=== PATIENT | female | born 1955 | race Caucasian/White ===

== ENCOUNTER 2021-05-14 02:58 | Emergency (ER) | payer MEDICARE, OTHER, SELFPAY ==
[2021-05-14 03:07] VITALS: BP 140/70; BP 170/84; PULSE 80; PULSE 83; RESP 20; O2SAT 100; O2SAT 97; BMI 24.3
--- NOTE | 2021-05-14 03:15 | PC.NURSE ---
pt reports eating chili for lunch, sudden onset N/V around 9pm. periumbilical pain described as gnawing
[2021-05-14 03:17] VITALS: BP 176/92; PULSE 84; RESP 18; O2SAT 100
--- NOTE | 2021-05-14 03:20 | ECG_ITS ---
Test Reason : N/V Blood Pressure : / mmHG Vent. Rate : 084 BPM Atrial Rate : 084 BPM P-R Int : 152 ms QRS Dur : 072 ms QT Int : 404 ms P-R-T Axes : 060 055 056 degrees QTc Int : 477 ms Normal sinus rhythm Normal ECG No previous ECGs available Referred By: Ivette Chow Electronically Signed By:Issac Caban
--- NOTE | 2021-05-14 03:21 | ED_ITS ---
HPI - Nausea/Vomiting/Diarrhea General Chief complaint: Nausea/Vomiting/Diarrhea Stated complaint: abd pain n/v, zofran +IV Time Seen by Provider: 05/14/21 03:12 Source: patient Mode of arrival: EMS History of Present Illness HPI Narrative: 66-year-old female with history of depression and GERD presents with onset of nausea and vomiting approximately 21:00, she did not have dinner and denies any prior history of surgeries within the abdomen and denies any obstipation or diarrhea. In addition, she denies any fever, chills, urinary matteo n/burning/frequency. Patient does describe that the pain is back and periumbilical in nature. Related Data Home Medications Medication Instructions Recorded Confirmed bupropion HCl 150 mg 24 hr tablet, 1 tab PO QAM 05/14/21 05/14/21 extended release (Wellbutrin XL) fluoxetine 10 mg capsule 2 cap PO DAILY 05/14/21 05/14/21 fluticasone 250 mcg-salmeterol 50 1 puff INHALATION BID 05/14/21 05/14/21 mcg/dose blistr powdr for inhalation (Advair Diskus) montelukast 10 mg tablet 1 tab PO DAILY 05/14/21 05/14/21 Previous Rx's Medication Instructions Recorded ondansetron 4 mg disintegrating 4 mg PO Q6H PRN #10 tab 05/14/21 tablet Allergies Allergy/AdvReac Type Severity Reaction Status Date / Time Penicillins Allergy Intermediate Angioedema Verified 05/14/21 03:13 Review of Systems Review of Systems: Pertinent positives and negatives as stated in HPI 10 point review of systems is otherwise negative. FOR[facility]LY [facility], [facility] Past Medical History Source: nursing notes reviewed Medical History Asthma GERD (gastroesophageal reflux disease) Hiatal hernia Social History Social History Alcohol intake: current Alcohol intake frequency: a few times a week Use of substances other than those prescribed or required for medical reasons: No Advance Directives: No Advance Directives Information Provided: Yes Physical Exam Vital Signs: Vital Signs: Last Vital Signs Pulse 96 05/14/21 05:09 Resp 15 05/14/21 05:09 BP 174/86 H 05/14/21 05:09 Pulse Ox 98 05/14/21 05:09 BMI result Body Mass Index 24.3 VITAL SIGNS: Reviewed. GENERAL: Well developed, well nourished, in no acute distress. HEAD: Normocephalic/atraumatic EYES: PERRLA, EOMI OROPHARYNX: no oral lesions noted, posterior pharynx clear LUNGS: Normal breath sounds. No adventitious sounds or accessory muscle use. SpO2<100> CARDIOVASCULAR: Regular rate and rhythm without noted murmurs, no JVD or lower extremity edema. ABDOMEN: Soft, mild tenderness to palpation over periumbilical area, non- distended with bowel sounds. MUSCULOSKELETAL: No tenderness, deformities, or effusions noted on gross inspection. EXTREMITIES: No cyanosis, clubbing or edema. SKIN: Inspection of the skin reveals no rashes NEUROLOGIC: Alert and oriented x 4. Strength and sensation to light touch were grossly intact x 4. Course Course Course Narrative: 66-year-old female with history and clinical presentation suggestive of possible gastritis, pancreatitis, cholecystitis and less likely appendicitis or UTI. Review of all investigations negative for acute findings and after patient received GI cocktail, acid reflux medication, she was feeling improved on re- evaluation but states she still felt like her stomach a sensitive. She was informed of all results. She is tolerating oral intake and is otherwise stable for discharge to home. MDM - Nausea/Vomiting/Diarrhea Lab Data Result diagrams: 05/14/21 04:05 05/14/21 04:05 Labs: Lab Results 05/14/21 05/14/21 05/14/21 Range/Units 03:55 04:05 04:05 WBC 9.0 (4.8-10.8) X10*3/uL RBC 4.59 (4.20-5.50) X10*6/uL Hgb 13.8 (12.0-16.0) g/dl Hct 41.6 (37.0-47.0) % MCV 90.6 (80.0-98.0) fL MCH 30.1 (27.0-33.0) pg MCHC 33.2 (31.0-35.0) g/dl RDW 12.6 (11.0-16.0) % Plt Count 278 (160-400) X10*3/uL MPV 9.5 (9.4-12.3) fL Immature Gran % (Auto) 0.4 (0.0-0.4) % Neut % (Auto) 84.0 H (45-73) % Lymph % (Auto) 9.8 L (20-40) % Clark % (Auto) 4.9 (2-11) % Eos % (Auto) 0.3 (0-4) % Baso % (Auto) 0.6 (0-2) % Lymph # (Auto) 0.9 L (1.2-4.9) X10*3/uL Clark # (Auto) 0.4 (0.1-1.2) X10*3/uL Eos # (Auto) 0.0 (0.0-0.4) X10*3/uL Baso # (Auto) 0.1 (0.0-0.2) X10*3/uL Abs Immat Gran (auto) 0.04 H (0.00-0.03) X10*3/uL Absolute Neuts (auto) 7.6 (2.0-8.3) x10*3/uL Absolute Nucleated RBC 0.000 (0.0-0.012) X10*3/uL Nucleated RBC % (auto) 0.0 (0.0-0.2) /100WBC Sodium 141 (135-145) mmol/L Potassium 4.5 (3.3-5.1) mmol/L Chloride 107 (96-108) mmol/L Carbon Dioxide 19 L (22-29) mmol/L Anion Gap 20 (12-20) BUN 12 (9-16) mg/dL Creatinine 0.91 (0.5-1.4) mg/dL Estim Creat Clear Calc 64.3 Estimated GFR > 60 Random Glucose 128 H (60-115) mg/dL Calcium 9.9 (8.4-10.2) mg/dL Total Bilirubin 0.7 (0.0-1.0) mg/dL AST 26 (5-31) U/L ALT 22 (0-31) U/L Alkaline Phosphatase 89 (39-117) U/L Total Protein 6.9 (6.5-8.0) g/dL Albumin 4.3 (3.5-5.0) g/dL Lipase 12 (8-78) U/L Urine Color STRAW Urine Appearance CLEAR Urine pH 8.0 (5.0-8.0) Ur Specific [place] 1.020 (1.005-1.025) Urine Protein NEG (NEG-TRACE) MG/DL Urine Glucose (UA) NEG (NEG) MG/DL Urine Ketones NEG (NEG) MG/DL Urine Blood NEG (NEG) Urine Nitrite NEG (NEG) Ur Leukocyte Esterase NEG (NEG) ECG Data Attestation: I personally reviewed and interpreted this ECG as follows: Prior ECG tracings: not available for review Interpretation: Normal sinus rhythm, HR-84, no STEMI, SC/QRS/QTC are within normal limits. Discharge Plan Discharge Clinical Impression: Gastritis Patient Disposition: Home, Self-Care Instructions: Gastritis (ED), Diet for Stomach Ulcers and Gastritis (ED) Additional Instructions: 1. Recommend that you initiate your 2 week course of acid reflux treatment. 2. Recommend keeping a bland diet to help settle your symptoms. 3. Follow-up with your primary care provider. Return to the ER for worsening symptoms. Prescriptions: New ondansetron 4 mg tablet,disintegrating 4 mg PO Q6H PRN (Reason: nausea and vomiting) Qty: 10 0RF No Action fluticasone propion-salmeterol [Advair Diskus] 250-50 mcg/dose blister with device 1 puff inhalation BID 0RF fluoxetine 10 mg capsule 2 cap PO DAILY 0RF montelukast 10 mg tablet 1 tab PO DAILY 0RF bupropion HCl [Wellbutrin XL] 150 mg tablet extended release 24 hr 1 tab PO QAM 0RF
[2021-05-14] MEDS: Prochlorperazine Edisylate 10 MG/2 ML VIAL IVPUSH (03:26)
[2021-05-14] MEDS: Famotidine/PF 20 MG/2 ML VIAL IVPUSH (03:30)
[2021-05-14 04:09] LABS: MANUAL DIFF FLAG NO
[2021-05-14 04:10] LABS: Appearance Urine CLEAR; Color Urine STRAW; Glucose Urine UA NEG (NEG); Leukocyte Esterase Urine NEG (NEG); Nitrite Urine NEG (NEG); Urine Blood NEG (NEG); Urine Ketones NEG (NEG); Urine Protein NEG (NEG-TRACE)
[2021-05-14 04:10] LABS: Basophils Absolute Auto 0.1 X10*3/uL (0.0-0.2); Basophils Percent Auto 0.6 % (0-2); Eosinophils Percent Auto 0.3 % (0-4); Hematocrit 41.6 % (37.0-47.0); Hemoglobin 13.8 g/dl (12.0-16.0); Imm Gran Abs Auto 0.04 X10*3/uL (0.00-0.03); Imm Gran Pct Auto 0.4 % (0.0-0.4); Lymphocytes Absolute Auto 0.9 X10*3/uL (1.2-4.9); Lymphocytes Percent Auto 9.8 % (20-40); Mean Corpuscular HGB Conc 33.2 g/dl (31.0-35.0); Mean Corpuscular Hemoglobin 30.1 pg (27.0-33.0); Mean Corpuscular Volume 90.6 fL (80.0-98.0); Mean Platelet Volume 9.5 fL (9.4-12.3); Monocytes Absolute Auto 0.4 X10*3/uL (0.1-1.2); Monocytes Percent Auto 4.9 % (2-11); Neutrophils Absolute Auto 7.6 x10*3/uL (2.0-8.3); Platelet Count 278 X10*3/uL (160-400); Red Blood Count 4.59 X10*6/uL (4.20-5.50); Red Cell Distribution Width 12.6 % (11.0-16.0)
[2021-05-14 04:25] LABS: Alanine Aminotransferase 22 U/L (0-31); Albumin Level 4.3 g/dL (3.5-5.0); Alkaline Phosphatase 89 U/L (39-117); Anion Gap 20 (12-20); Aspartate Amino Transferase 26 U/L (5-31); Bilirubin Total 0.7 mg/dL (0.0-1.0); Blood Urea Nitrogen 12 mg/dL (9-16); Calcium 9.9 mg/dL (8.4-10.2); Carbon Dioxide 19 mmol/L (22-29); Chloride 107 mmol/L (96-108); Creatinine Clr Calc Pharmacy 64.3; Estimated Glomerular Filt Rate > 60; Glucose Random 128 mg/dL (60-115); Lipase 12 U/L (8-78); Potassium 4.5 mmol/L (3.3-5.1); Sodium 141 mmol/L (135-145); Total Protein 6.9 g/dL (6.5-8.0)
[2021-05-14] MEDS: Magnesium Hydrox/Alum Hydrox 30 ML ORAL.SUSP PO (05:08)
[2021-05-14] MEDS: Lidocaine HCl Viscous 2 % 15 ML SOLUTION 10 ML MUCOUS MEM (05:08)
[2021-05-14 05:09] VITALS: BP 174/86; PULSE 96; RESP 15; O2SAT 98
[2021-05-14] MEDS: Sucralfate Oral Suspension 1 GM/10 ML ORAL.SUSP PO (05:33)
[2021-05-14 06:00] VITALS: BP 158/91; PULSE 101; RESP 16; TEMP 36.9; O2SAT 99
== END 2021-05-14 06:30 | disposition home or self-care (01) ==
PROVIDERS: Emergency Provider Student in an Organized Health Care Education/Training Program
DX: K29.70 Gastritis, unspecified, without bleeding (principal); K21.9 Gastro-esophageal reflux disease without esophagitis
CPT/HCPCS: 36415; 80053; 81003; 83690; 85025; 93005; 96374; 96375; 99284; 99285

== ENCOUNTER 2021-07-11 13:17 | Outpatient (REF) | payer MEDICARE, OTHER, SELFPAY ==
--- NOTE | ~2021-07-11 | US_ITS ---
EXAMINATION: US ABDOMEN LIMITED CLINICAL INFORMATION: Abnormal LFTs. COMPARISON: None TECHNIQUE: Real-time imaging of the right upper quadrant abdominal viscera. FINDINGS: PANCREAS: The visualized portion of the pancreas head and body are normal, portion of the pancreatic body and tail, not visualized are obscured by bowel gas. LIVER: The liver is normal in size. The liver contour is normal. Increased echogenicity of the liver parenchyma, this can be seen in the setting of hepatic steatosis or liver parenchymal disease. No focal hepatic lesion. There is no intrahepatic biliary duct dilatation seen. GALLBLADDER: Gallbladder is packed with gallstones, mild gallbladder wall thickening measuring up to 3mm. No tenderness. No pericholecystic fluid collection, no other signs to suggest acute cholecystitis... COMMON BILE DUCT: Normal in caliber measuring 0.3 cm in diameter. RIGHT KIDNEY: Normal. No hydronephrosis. No renal calculi or focal parenchymal lesions. The kidney measures 9.7 cm in maximum dimension. FREE FLUID: None. US/US abdomen limited IMPRESSION: Increased echogenicity of the liver parenchyma, this can be seen in the setting of hepatic steatosis or liver parenchymal disease. Gallbladder is packed with gallstones. Mild thickening of gallbladder wall nonspecific 3 mm. No tenderness or other signs to suggest acute cholecystitis.
== END 2021-07-11 13:18 | disposition home or self-care (01) ==
LOC: HO.US 13:17
DX: R94.5 Abnormal results of liver function studies (principal)
CPT/HCPCS: 76705

== ENCOUNTER 2021-07-25 09:26 | Outpatient (REF) | payer OTHER, SELFPAY ==
[2021-07-25 09:38] LABS: MANUAL DIFF FLAG NO
[2021-07-25 10:08] LABS: Basophils Absolute Auto 0.1 X10*3/uL (0.0-0.2); Basophils Percent Auto 1.4 % (0-2); Eosinophils Absolute Auto 0.5 X10*3/uL (0.0-0.4); Eosinophils Percent Auto 8.9 % (0-4); Hematocrit 41.8 % (37.0-47.0); Hemoglobin 13.4 g/dl (12.0-16.0); Imm Gran Abs Auto 0.01 X10*3/uL (0.00-0.03); Imm Gran Pct Auto 0.2 % (0.0-0.4); Lymphocytes Percent Auto 36.1 % (20-40); Mean Corpuscular HGB Conc 32.1 g/dl (31.0-35.0); Mean Corpuscular Hemoglobin 29.4 pg (27.0-33.0); Mean Corpuscular Volume 91.7 fL (80.0-98.0); Mean Platelet Volume 9.6 fL (9.4-12.3); Monocytes Absolute Auto 0.6 X10*3/uL (0.1-1.2); Neutrophils Absolute Auto 2.4 x10*3/uL (2.0-8.3); Neutrophils Percent Auto 43.4 % (45-73); Platelet Count 305 X10*3/uL (160-400); Red Blood Count 4.56 X10*6/uL (4.20-5.50); Red Cell Distribution Width 12.5 % (11.0-16.0); White Blood Count 5.5 X10*3/uL (4.8-10.8)
[2021-07-25 10:09] LABS: Prothrombin Time 11.4 SEC (9.9-13.0)
[2021-07-25 10:25] LABS: Alanine Aminotransferase 26 U/L (0-31); Albumin Level 4.2 g/dL (3.5-5.0); Alkaline Phosphatase 138 U/L (39-117); Aspartate Amino Transferase 24 U/L (5-31); Bilirubin Direct 0.3 mg/dL (0.0-0.5); Bilirubin Total 0.6 mg/dL (0.0-1.0); Total Protein 6.5 g/dL (6.5-8.0)
== END 2021-07-25 09:27 | disposition home or self-care (01) ==
LOC: HO.LAB 09:26
PROVIDERS: PCP Hospitalist; Visit Provider Internal Medicine
DX: R94.5 Abnormal results of liver function studies (principal)
CPT/HCPCS: 36415; 80076; 85025; 85610

== ENCOUNTER 2021-08-19 08:49 | Outpatient (REF) | payer MEDICARE, OTHER, SELFPAY ==
--- NOTE | ~2021-08-19 | MM_ITS ---
EXAMINATION: MM SCREENING DIGITAL BREAST TOMOSYNTHESIS, BILATERAL CLINICAL INFORMATION: Screening. Asymptomatic. Prior [id number] mammography from [place] currently unavailable, office called according to technologist. No known family history breast cancer. The lifetime risk of breast cancer based on the Tyrer-Cuzick Model is 7%. COMPARISON: None. TECHNIQUE: Digital breast tomosynthesis is performed in both the craniocaudal and mediolateral oblique views along with computer-aided detection (CAD). Synthesized 2D images are generated from the tomosynthesis. FINDINGS: There are scattered areas of fibroglandular density (ACR BI-RADS breast composition Category b). There is benign appearing dominant oval nodule posterior central 6:00 left breast, under 1 cm. Right breast has 2 benign-appearing circumscribed nodule 9:00 periareolar position, under 0.5 cm. Chronicity is currently unknown. Radiology department staff is targeted to retrieve prior [id number] mammography to allow for comparison in an addendum report. There is no spiculated mass or suspicious focal asymmetric density. No abnormal calcifications. The axilla and skin contours are unremarkable. MM/MM tomosynthesis screening BI IMPRESSION: Benign-appearing oval nodule posterior central 6:00 left breast and anterior periareolar right breast of uncertain chronicity. Prior outside exam pending for comparison. ASSESSMENT: BI-RADS 0: Incomplete - Prior outside exam pending for comparison RECOMMENDATION: -Radiology department staff will attempt to retrieve outside prior exam(s) to allow for comparison in an addendum report. -If unavailable, patient will be recalled for additional targeted ultrasound bilateral breasts. This patient's information was entered into a reminder system with a target due date for their next mammogram.
== END 2021-08-19 08:50 | disposition home or self-care (01) ==
LOC: HO.MAMMO 08:49
PROVIDERS: PCP Hospitalist; Visit Provider Hospitalist
DX: Z12.31 Encounter for screening mammogram for malignant neoplasm of breast (principal)
CPT/HCPCS: 77063; 77067

== ENCOUNTER 2021-08-22 06:03 | Day surgery (SDC) | payer MEDICARE, OTHER, SELFPAY ==
[2021-08-16 08:58] VITALS: BMI 24.3
--- NOTE | 2021-08-21 10:04 | P.CONAN_ITS ---
Documented by User: Terese Williamson NP 08/21/21 10:06 HPI - Anesthesia Eval Consult details Narrative: 66yo F for Cholecystectomy Laparoscopic, possible cholangiogram,possible open PMFSH Active Problems Active Problems: All Active Problems (Updated 08/16/21 @ 08:52 by Bushra López RN) GERD (gastroesophageal reflux disease) (Acute) Asthma (Acute) Cholelithiasis (Acute) Elevated liver enzymes (Acute) Anxiety with depression (Acute) Past Medical History Medical History Asthma Depression GERD (gastroesophageal reflux disease) Hiatal hernia Skin cancer Surgical History Surgical History History of breast biopsy Hx of colonoscopy Social History Social History Housing: House Are you a primary progressive care unit registered nurse to a significant other at home: No Do you presently have visiting nurse or other home services: No Alcohol intake: current Alcohol intake frequency: a few times a week Patient Tobacco Use Status: Never used Tobacco e-Cigarette/Vaping Use: Never Used Second Hand Smoke Exposure: No Are you DNR?: No Advance Directives: No Advance Directives Information Provided: No Advance Directives on File: No Recently lost weight without trying: No Eating poorly because of decreased appetite: No Nutrition Risks: No Nutritional Risk Patient : No service: No Current occupational status: employed Current occupational exposures/hazards: No Cognitive needs: No Hearing needs: No Vision needs: No Meds Allergies Allergy/AdvReac Type Severity Reaction Status Date / Time Penicillins Allergy Intermediate Angioedema Verified 08/16/21 08:53 codeine AdvReac Nausea, Verified 08/16/21 08:53 Abdominal pain Home Medications Medication Instructions Recorded Confirmed Last Taken Type bupropion HCl 150 mg 24 hr tablet, 1 tab PO QAM 05/14/21 08/16/21 Unknown History extended release (Wellbutrin XL) fluticasone 250 mcg-salmeterol 50 1 puff inhalation BID 05/14/21 08/22/21 08/22/21 05:30 History mcg/dose blistr powdr for inhalation (Advair Diskus) montelukast 10 mg tablet 1 tab PO DAILY 05/14/21 08/16/21 Unknown History clobetasol 0.05 % topical cream g topical BID 07/18/21 08/06/21 Unknown History fluoxetine 20 mg capsule 20 mg PO DAILY 07/18/21 08/16/21 Unknown History Exam Exam Date and Time: August 21, 2021 1004 Height,Weight and Vital Signs: Height 5 ft 8 in Weight 72.575 kg Pertinent Lab Results Pertinent Lab Results: Laboratory Tests 05/14/21 07/25/21 04:05 09:37 WBC 5.5 Hgb 13.4 Hct 41.8 Plt Count 305 Sodium 141 Potassium 4.5 Chloride 107 Carbon Dioxide 19 L BUN 12 Creatinine 0.91 Narrative Narrative: EKG 04/2021 Vent. Rate : 084 BPM ? ? Atrial Rate : 084 BPM ?? P-R Int : 152 ms? QRS Dur : 072 ms ? ? QT Int : 404 ms ? ? ? P-R-T Axes : 060 055 056 degrees ?? QTc Int : 477 ms ? Normal sinus rhythm Normal ECG No previous ECGs available Assessment and Plan Assessment Anesthesia Assessment: Chart Reviewed Documented by User: Brett Graham MD 08/22/21 07:21 [facility] Past Medical History Medical History Asthma Depression GERD (gastroesophageal reflux disease) Hiatal hernia Skin cancer Patient : No Family History Family history of problems with anesthesia: No Surgical History Surgical History History of breast biopsy Hx of colonoscopy History of Problems with Anesthesia: No Social History Social History Housing: House Are you a primary progressive care unit registered nurse to a significant other at home: No Do you presently have visiting nurse or other home services: No Alcohol intake: current Alcohol intake frequency: a few times a week Patient Tobacco Use Status: Never used Tobacco e-Cigarette/Vaping Use: Never Used Second Hand Smoke Exposure: No Are you DNR?: No Advance Directives: No Advance Directives Information Provided: No Advance Directives on File: No Recently lost weight without trying: No Eating poorly because of decreased appetite: No Nutrition Risks: No Nutritional Risk Patient : No service: No Current occupational status: employed Current occupational exposures/hazards: No Cognitive needs: No Hearing needs: No Vision needs: No Meds Allergies Allergy/AdvReac Type Severity Reaction Status Date / Time Penicillins Allergy Intermediate Angioedema Verified 08/16/21 08:53 codeine AdvReac Nausea, Verified 08/16/21 08:53 Abdominal pain Home Medications Medication Instructions Recorded Confirmed Last Taken Type bupropion HCl 150 mg 24 hr tablet, 1 tab PO QAM 05/14/21 08/16/21 Unknown History extended release (Wellbutrin XL) fluticasone 250 mcg-salmeterol 50 1 puff inhalation BID 05/14/21 08/22/21 08/22/21 05:30 History mcg/dose blistr powdr for inhalation (Advair Diskus) montelukast 10 mg tablet 1 tab PO DAILY 05/14/21 08/16/21 Unknown History clobetasol 0.05 % topical cream g topical BID 07/18/21 08/06/21 Unknown History fluoxetine 20 mg capsule 20 mg PO DAILY 07/18/21 08/16/21 Unknown History Exam Airway Mallampati Class: II TM Dist: >3cm Neck ROM: Full Loose/Missing/Broken Teeth: No (Rrr) Lungs: clear Assessment and Plan Final Anesthetic Review Family History of Problems with Anesthesia: No History of Problems with Anesthesia: No ASA Class: II Final Preanesthetic Review: No Changes in Pt Med Stat, Meds/Allgs Chart Reviewed, Consent Obtained/Reviewed and Anes Risks/Benef Reviewed Patient Risk: Low Procedure Risk: Low Anesthetic Plan Anesthetic Plan: GA Disposition: Standard PACU
[2021-08-22] VITALS (14 sets, daily range): BP systolic 141–157; BP diastolic 76–89; PULSE 74–106; RESP 14–20; TEMP 36.2–36.4; O2SAT 94–99
[2021-08-22] MEDS: Lactated Ringers 1,000 ML 100 ML IVCONT (06:34)
[2021-08-22] MEDS: Acetaminophen 325 MG TABLET 650 MG PO (06:46)
[2021-08-22] MEDS: Heparin Sodium,Porcine 5,000 UNIT/ML VIAL 5000 UNIT SUBCUT (06:50)
--- NOTE | 2021-08-22 07:21 | MHC.SHP ---
Pre-Procedural Eval Section A Date of Service: 08/22/21 The patient is an INPATIENT: No The History & Physical has been completed within 30 days and I have reviewed it.: Yes Section B Chief Complaint: gall stones Allergies: Allergies Allergy/AdvReac Type Severity Reaction Status Date / Time Penicillins Allergy Intermediate Angioedema Verified 08/16/21 08:53 codeine AdvReac Nausea, Verified 08/16/21 08:53 Abdominal pain Plan I have reviewed the history and physical and performed a pertinent physical examination on my patient. No changes have occurred unless specified.
--- NOTE | 2021-08-22 09:14 | P.OP_ITS ---
Operative Note Operative Note Date of Service: 08/22/21 Narrative: Preop diagnosis: [biliary colic] Postop diagnosis: [same] Procedure: [Laparoscopic cholecystectomy] Surgeon: Helder Melton MD Assist: [Nataliia Ramirez PA-C] Anesthesia: [GET, local Marcaine, 0.5% W/ EPI] Estimated blood loss: [3cc] Specimen: [Gallbladder with contents] Intraoperative findings: [5-6 mm cystic duct; 3-4 mm cystic artery in usual location. Adhesions from the neck of the gallbladder to the duodenum were noted in carefully lysed at the clear interface towards the gallbladder to protect the serosa of the duodenum] Indications: [The patient is a 66-year-old woman who had text of biliary colic symptoms. Options including continued observation versus 2nd opinion were reviewed. I also reviewed the inherent risks to laparoscopic cholecystectomy which include, but are not limited to: Bleeding, infection, need for conversion to an open procedure, bile leak, retained common duct stones that could require an ERCP, common bile duct injury that could require transfer. Patient seemed understand her options and wanted to proceed. Activity restrictions and dietary recommendations were also reviewed and apparently understood.] Procedure: The patient was identified in preoperative holding and again in the operating room and placed supine on the table. The patient voided bladder complaint evaluation supervisor, sequential compression stockings were in place, subcu heparin had been administered and antibiotics per protocol were given. The patient was induced in general endotracheal anesthesia administered with excellent effect. An appropriate time-out was performed. A footboard was utilized. The patient's abdomen was widely prepped and draped in the usual manner for surgery using chlorhexidine. Preemptive local was used at all trocar insertion sites. Again at the supraumbilical location and after infiltrating local, made a stab incision and placed a Veress needle without difficulty. An appropriate drop test was performed and a pneumoperitoneum of 15 mmHg was obtained using carbon dioxide. Next, the needle was withdrawn and a 5 mm/30 degree laparoscoped over Optiview trocar was used to access the abdomen without incident. Upon examining the abdomen, there was no evidence of injury from the Veress needle or trocar. Next, 5 mm trocars were placed in the epigastric, subcostal and right anterior axillary line just above the line of the umbilicus. Under direct laparoscopic vision, the 5 mm umbilical port was upsized to a 10 mm. The patient was then positioned in reverse Trendelenburg position and banked left. The gallbladder was clearly identified and grasped by its fundus. It was retracted cranially and anteriorly and dissection began in the cystic triangle. The cystic duct was identified at its junction on the gallbladder and dissection began laterally, then circumferentially dissected using the [place] dissector and hook. The cystic artery was then carefully identified and circumferentially dissected. Once dissection of both structures was complete and the critical view of safety demonstrated, the duct and artery were double clipped proximally and once distally and sharply divided. Electrocautery was used to remove the gallbladder from its fossa on the liver. Liver bed was inspected for hemostasis and the clips were noted to be on the respective structures. The gallbladder was placed in an Endo-Catch bag and delivered through the umbilicus under direct laparoscopic vision. The abdomen was again inspected with the laparoscoped and a abdomen deflated to assess for hemostasis. The patient was returned to neutral position, the abdomen deflated and the fascia of the supraumbilical incision closed with interrupted Vicryl sutures. Skin was closed with 4-0 Monocryl subcuticular sutures. Mastisol and Steri-Strips were applied followed by Band-Aids. The patient tolerated the procedure well and was extubated recovered in stable condition. All sponge instrument counts were correct. At the patient's request I called Leonid at [phone] and apprise them of the operation and plan. Their questions seemed to be satisfactorily answered.
[2021-08-22] MEDS: oxyCODONE HCl Immed Release 5 MG TABLET PO (09:31)
[2021-08-22] MEDS: fentaNYL citrate/PF 100 MCG/2 ML VIAL 25 MCG IVPUSH ×4 (09:31→09:46)
[2021-08-22] MEDS: ondansetron HCL 4 MG/2 ML VIAL IVPUSH (10:58)
== END 2021-08-22 12:04 | disposition home or self-care (01) ==
PROVIDERS: PCP Hospitalist; Visit Provider Surgery
PROC: 0FT44ZZ Resection of Gallbladder, Percutaneous Endoscopic Approach (ICD-10-PCS; CPT 47562; principal; 2021-08-22 07:30)
DX: K80.10 Calculus of gallbladder with chronic cholecystitis without obstruction (principal); K82.8 Other specified diseases of gallbladder; K21.9 Gastro-esophageal reflux disease without esophagitis; J45.909 Unspecified asthma, uncomplicated; R74.8 Abnormal levels of other serum enzymes; F41.8 Other specified anxiety disorders; Z79.51 Long term (current) use of inhaled steroids; Z79.899 Other long term (current) drug therapy; Z88.0 Allergy status to penicillin
CPT/HCPCS: 47562; 88304; J0330; J1100; J1956; J2250; J2405; J3010; Q9967

== ENCOUNTER 2021-12-09 12:11 | Outpatient (REF) | payer MEDICARE, OTHER, SELFPAY ==
[2021-12-09 14:50] LABS: Alanine Aminotransferase 20 U/L (0-31); Albumin Level 4.4 g/dL (3.5-5.0); Alkaline Phosphatase 85 U/L (39-117); Aspartate Amino Transferase 20 U/L (5-31); Bilirubin Direct 0.2 mg/dL (0.0-0.5); Bilirubin Total 0.6 mg/dL (0.0-1.0); Total Protein 6.6 g/dL (6.5-8.0)
== END 2021-12-09 12:12 | disposition home or self-care (01) ==
LOC: HO.10HDL 12:11
PROVIDERS: Visit Provider Internal Medicine
DX: R94.5 Abnormal results of liver function studies (principal)
CPT/HCPCS: 36415; 80076

== ENCOUNTER 2022-03-24 12:14 | Emergency (ER) | payer MEDICARE, OTHER, SELFPAY ==
--- NOTE | ~2022-03-24 | XR_ITS ---
EXAMINATION: XR FOOT, LEFT CLINICAL INFORMATION: Left foot pain status post fall. COMPARISON: None TECHNIQUE: AP, lateral, and oblique views of the left foot. An indicator arrow points to the fifth metatarsal. FINDINGS: The bones and soft tissues are normal. No fracture. Alignment is anatomic. Joint spaces are maintained. XR/XR foot LT 2V IMPRESSION: Unremarkable left foot.
[2022-03-24 12:38] VITALS: BP 140/74; PULSE 100; RESP 20; TEMP 36.8; O2SAT 98; BMI 23.6
--- NOTE | 2022-03-24 12:47 | ED.LOWEXIN ---
HPI - Extremity Injury (Lower) General Chief Complaint: Extremity Injury, Lower <Clau Miller NP - Last Filed: 03/24/22 12:48> Stated Complaint: fall l foot inj <Clau Miller NP - Last Filed: 03/24/22 12:48> Time Seen by Provider: 03/24/22 14:53 <Clau Miller NP - Last Filed: 03/24/22 12:48> Source: patient <ELÍAS Gray - Last Filed: 03/24/22 17:38> Mode of arrival: ambulatory <ELÍAS Gray Last Filed: 03/24/22 17:38> Limitations: no limitations <ELÍAS Gray Last Filed: 03/24/22 17:38> History of Present Illness HPI Narrative: 67 yold female presents to the ED for evaluation of left foot pain after falling down stairs and hurtning left foot. Patient denies hitting head or loss of consciousness. Patient states she has lower left leg bruising but has no pain in that area. Patient only pain is in left foot. Patient also states right forearm bruise were negative for any tenderness or pain. Patient states having these bruise after fall. patient states normal gait and denies troube walking except foot pain. Patient denies hitting head or loss of consciousness. She denies being on any blood thinners <ELÍAS Gray - Last Filed: 03/24/22 17:38> Related Data Home Medications: Home Medications Medication Instructions Recorded Confirmed fluticasone 250 mcg-salmeterol 50 1 puff inhalation BID 05/14/21 08/30/21 mcg/dose blistr powdr for inhalation (Advair Diskus) montelukast 10 mg tablet 1 tab PO DAILY 05/14/21 08/30/21 clobetasol 0.05 % topical cream g topical BID 07/18/21 08/30/21 Previous Rx's Medication Instructions Recorded albuterol sulfate 90 mcg/actuation 2 puff inhalation Q4-6H PRN 07/18/21 aerosol inhaler (ProAir HFA) shortness of breath or wheezing #8.5 grams bupropion HCl 150 mg 24 hr tablet, 150 mg PO QAM #90 tabs 11/05/21 extended release (Wellbutrin XL) fluoxetine 20 mg capsule 20 mg PO DAILY #90 caps 11/05/21 naproxen 500 mg tablet 500 mg PO BID PRN pain 7 days #14 03/24/22 tabs <Clau Miller NP - Last Filed: 03/24/22 12:48> Allergies/Adverse Reactions: Allergies Allergy/AdvReac Type Severity Reaction Status Date / Time Penicillins Allergy Intermediate Angioedema Verified 09/16/21 11:36 codeine AdvReac Nausea, Verified 09/16/21 11:36 Abdominal pain <Clau Miller NP - Last Filed: 03/24/22 12:48> Review of Systems Review of Systems: left foot pain <ELÍAS Gray - Last Filed: 03/24/22 17:38> Yes all other systems are reviewed and are negative <ELÍAS Gray - Last Filed: 03/24/22 17:38> PMFSH Past Medical History Medical History: Medical History Asthma Depression GERD (gastroesophageal reflux disease) Hiatal hernia Skin cancer <Clau Miller NP - Last Filed: 03/24/22 12:48> Surgical History: Surgical History History of breast biopsy Hx of colonoscopy <Clau Miller NP - Last Filed: 03/24/22 12:48> Social History Social History: Social History Housing: House Are you a primary healthcare representative to a significant other at home: No Do you presently have visiting nurse or other home services: No Alcohol intake: current Alcohol intake frequency: a few times a week Patient Tobacco Use Status: Never used Tobacco e-Cigarette/Vaping Use: Never Used Second Hand Smoke Exposure: No Advance Directives: No Advance Directives Information Provided: Yes service: No Current occupational status: employed Current occupational exposures/hazards: No Cognitive needs: No Hearing needs: No Vision needs: No <Clau Miller NP - Last Filed: 03/24/22 12:48> Physical Exam Vital Signs: Vital Signs: Last Vital Signs Temp 98.3 F 03/24/22 12:38 Pulse 100 03/24/22 12:38 Resp 20 03/24/22 12:38 BP 140/74 H 03/24/22 12:38 Pulse Ox 98 03/24/22 12:38 O2 Del Method 03/24/22 12:38 BMI result Body Mass Index 23.6 <Clau Miller NP - Last Filed: 03/24/22 12:48> Vital Signs: Last Vital Signs Temp 98.3 F 03/24/22 12:38 Pulse 100 03/24/22 12:38 Resp 20 03/24/22 12:38 BP 140/74 H 03/24/22 12:38 Pulse Ox 98 03/24/22 12:38 O2 Del Method 03/24/22 12:38 BMI result Body Mass Index 23.6 <Ej Villafuerte MD - Last Filed: 03/24/22 18:38> Vital Signs: Last Vital Signs Temp 98.3 F 03/24/22 12:38 Pulse 100 03/24/22 12:38 Resp 20 03/24/22 12:38 BP 140/74 H 03/24/22 12:38 Pulse Ox 98 03/24/22 12:38 O2 Del Method 03/24/22 12:38 BMI result Body Mass Index 23.6 <ELÍAS Gray - Last Filed: 03/24/22 17:38> Const: General: cooperative, healthy appearing, comfortable, no acute distress, well developed, alert, awake and Physically active <ELÍAS Gray - Last Filed: 03/24/22 17:38> Orientation/consciousness: oriented to person, oriented to place, oriented to time and patient oriented x3 <ELÍAS Gray - Last Filed: 03/24/22 17:38> HEENT: Head: Yes normal to inspection, Yes No palpable skull fracture present, Yes normocephalic and Yes atraumatic <ELÍAS Gray - Last Filed: 03/24/22 17:38> Ears: hearing grossly normal bilaterally, external ears normal, TM's normal bilaterally, EAC's normal, mastoids normal and no periauricular adenopathy <ELÍAS Gray Last Filed: 03/24/22 17:38> General nose exam: Normal external nose present and Normal nares present <Fly Tam, PA Mirna Last Filed: 03/24/22 17:38> Eyes: General: appearance normal, both eyes and all related structures <Fly Tam, PA Last Filed: 03/24/22 17:38> Neck: Neck: Yes normal visual inspection, Yes full ROM, Yes no lymphadenopathy, Yes no meningeal signs, Yes trachea midline, Yes supple, No anterior neck swelling and No tender <Fly Tam, PA Last Filed: 03/24/22 17:38> Chest: Chest palpation & inspection: normal inspection of the chest and normal palpation of entire chest wall <Fly Tam, PA Last Filed: 03/24/22 17:38> Resp: Effort & Inspection: normal respiratory effort and able to speak in complete sentences <Fly Tam, PA Last Filed: 03/24/22 17:38> Auscultation: clear to auscultation bilaterally <Fly Tam, PA Last Filed: 03/24/22 17:38> Cardio: Jugular venous distension: no JVD <Fly Tam, PA Last Filed: 03/24/22 17:38> Heart sounds: S1 normal heart sound present and S2 normal heart sound present <Fly Tam, PA Last Filed: 03/24/22 17:38> GI: Inspection: Yes normal to inspection and No abdominal wall ecchymosis <Fly Tam, PA Last Filed: 03/24/22 17:38> Palpation (GI): Soft to palpation, not firm, nontender, no guarding and not rigid <Fly Tam, PA Last Filed: 03/24/22 17:38> : General: No CVA tenderness and Yes no CVA tenderness <Fly Tma, PA Last Filed: 03/24/22 17:38> Back/Spine/Pelvis: Back: no CVA tenderness, No CVA tenderness and No back tenderness <Fly Tam, PA Mirna Last Filed: 03/24/22 17:38> Skin: General skin exam: no rashes or lesions noted, elasticity normal and turgor normal <ELÍAS Gray Last Filed: 03/24/22 17:38> Neuro: General: oriented to person, oriented to place, oriented to time, patient oriented x3, gait normal, tone normal, moves all extremities, Normal light touch and pain sensation, no meningeal signs, no focal motor deficits and CN's II-XI intact bilaterally <ELÍAS Gray - Last Filed: 03/24/22 17:38> Extrem: General: Yes normal to inspection and Yes full ROM <ELÍAS Gray - Last Filed: 03/24/22 17:38> Elbow/forearm/wrist images: 1. Small area of ecchymosis. Negative for any tenderness, swelling crepitus, or deformity. Motor/Neuro/vascular similar extremity intact <Clau Miller NP - Last Filed: 03/24/22 12:48> Elbow/forearm/wrist images: 1. Small area of ecchymosis. Negative for any tenderness, swelling crepitus, or deformity. Motor/Neuro/vascular similar extremity intact <ELÍAS Gray - Last Filed: 03/24/22 17:38> Upper/lower leg/hip images: 1. Small area of ecchymosis. Negative for tenderness, swelling crepitus, or deformity. Motor/neuro/vascular exam intact. <Clau Miller NP - Last Filed: 03/24/22 12:48> Upper/lower leg/hip images: 1. Small area of ecchymosis. Negative for tenderness, swelling crepitus, or deformity. Motor/neuro/vascular exam intact. <ELÍAS Gray - Last Filed: 03/24/22 17:38> Ankle/foot/toe images: 1. Positive for tenderness on palpation. Negative for crepitus, ecchymosis, deformity, redness. Motor/neuro/vascular exam intact <Clau Miller NP - Last Filed: 03/24/22 12:48> Ankle/foot/toe images: 1. Positive for tenderness on palpation. Negative for crepitus, ecchymosis, deformity, redness. Motor/neuro/vascular exam intact <ELÍAS Gray - Last Filed: 03/24/22 17:38> Psych: Appearance: grossly normal, well kempt and not disheveled <ELÍAS Gray Last Filed: 03/24/22 17:38> Course Course Course Narrative: This is rapid medical exam. Deferred additional HPI, ROS, PE to primary provider. 67 yo female here with left foot pain after a fall yesterday. Will check x-ray. VSS <Clau Miller NP - Last Filed: 03/24/22 12:48> Reevaluation(s) Reevaluation #1: X-ray negative. No further imaging needed. Whole-body exam and negative for signs of concerning life-threatening traumatic injury. Patient did not have any tenderness on palpation of right forearm and left leg similar x-rays were needed. Patient left before receiving discharge papers P <ELÍAS Gray - Last Filed: 03/24/22 17:38> Time: 16:02 <ELÍAS Gray - Last Filed: 03/24/22 17:38> Medical Decision Making Medical Decision Making MDM Narrative: [age] year female presents to ED for left foot pain after falling. Patient well-appearing. Vital signs stable <ELÍAS Gray - Last Filed: 03/24/22 17:38> Differential Diagnosis Differential Diagnoses: The differential diagnosis associated with the presentation includes (Fractures.) <ELÍAS Gray - Last Filed: 03/24/22 17:38> Radiology Impression Discussion of test interpretation with radiology: I have reviewed the radiologist's reading. <ELÍAS Gray - Last Filed: 03/24/22 17:38> Prescription Management I considered prescription management with: Pain Medication <ELÍAS Gray - Last Filed: 03/24/22 17:38> Attestation Attending Attestation: I personally reviewed the chart documentation. I agree with the assessment and plan as set forth by the ELÍAS / SELINA. <Ej Villafuerte MD - Last Filed: 03/24/22 18:38> Discharge Plan Discharge Clinical Impression: Contusion, Foot pain <Clau Miller NP - Last Filed: 03/24/22 12:48> Patient Disposition: Home, Self-Care <Clau Miller NP - Last Filed: 03/24/22 12:48> Instructions: Contusion in Adults (ED), Foot Contusion (ED) <Clau Miller NP - Last Filed: 03/24/22 12:48> Additional Instructions: Recommend Ice first 48 hours and than warm compress on areas of bruising. Recommend elevation of lower extremity. Recommend rest of extremity. Return to the ED immediately for any headache, dizziness, nausea, vomiting, rectal bleeding, bloody urine, chest pain, shortness of breath, worsening bruising of extremities, worsening pain, coughiing up blood or any other concerning symptoms. Please follow-up with primary care provider <Clau Miller NP - Last Filed: 03/24/22 12:48> Prescriptions: New naproxen 500 mg tablet 500 mg PO BID PRN (Reason: pain) 7 Days Qty: 14 0RF No Action bupropion HCl [Wellbutrin XL] 150 mg tablet extended release 24 hr 150 mg PO QAM Qty: 90 1RF fluoxetine 20 mg capsule 20 mg PO DAILY Qty: 90 1RF fluticasone propion-salmeterol [Advair Diskus] 250-50 mcg/dose blister with device 1 puff inhalation BID montelukast 10 mg tablet 1 tab PO DAILY clobetasol 0.05 % cream topical BID albuterol sulfate [ProAir HFA] 90 mcg/actuation HFA aerosol inhaler 2 puff inhalation Q4-6H PRN (Reason: shortness of breath or wheezing) Qty: 8.5 3RF <Clau Miller NP - Last Filed: 03/24/22 12:48> Stand Alone Forms: Work/School Release <Clau Miller NP - Last Filed: 03/24/22 12:48> Interventions: ED Discharge Assessment Last Done: 03/24/22 16:13 <Clau Miller NP - Last Filed: 03/24/22 12:48> Discharge Date/Time: 03/24/22 16:14 <Clau Miller NP - Last Filed: 03/24/22 12:48> Print Language: Citizen Of [place] <Clau Miller NP - Last Filed: 03/24/22 12:48>
== END 2022-03-24 16:14 | disposition home or self-care (01) ==
PROVIDERS: Emergency Provider Student in an Organized Health Care Education/Training Program; PCP Hospitalist
DX: S90.32XA Contusion of left foot, initial encounter (principal); W10.9XXA Fall (on) (from) unspecified stairs and steps, initial encounter; Y93.9 Activity, unspecified; Y92.9 Unspecified place or not applicable; Y99.9 Unspecified external cause status; Z79.899 Other long term (current) drug therapy
CPT/HCPCS: 73620; 99282; 99283

== ENCOUNTER 2022-09-01 15:07 | Outpatient (AMB) | payer MEDICARE, OTHER, SELFPAY ==
--- NOTE | 2022-09-01 15:28 | MHC.PC.OV ---
Vital Signs 09/01/22 15:32 Height 5 ft 8 in Weight 156 lb 8 oz BMI 23.8 BP 134/80 Blood Pressure Location Lt brachial Position Sitting Respiration 12 Pulse 102 H Pulse Source Pulse Oximeter Pulse Oximetry (%) 99 Oxygen Delivery Method Room Air Intake Visit Reasons: Annual physical / pre-op Intake Note: Patient is here for physical and preop for retina surgery in right eye. Allergies Penicillins Allergy (Intermediate, Verified 09/01/22 16:02) Angioedema codeine Adverse Reaction (Verified 09/01/22 16:02) Nausea, Abdominal pain Medication List - Last Reconciled 09/01/22 by Reji Ken CNP albuterol sulfate 90 mcg/actuation (ProAir HFA) 2 puffs inhalation Q4-6H PRN bupropion HCl (Wellbutrin XL) 150 mg PO QAM clobetasol 0.05% 1 appl topical BID PRN fluoxetine 20 mg PO DAILY fluticasone propion-salmeterol 250-50 mcg/dose (Advair Diskus) 1 ea inhalation BID montelukast 10 mg PO DAILY Tobacco use date assessed: 09/16/21 Fall risk assessment: 1 Fall in past year Last assessed Fall Risk: 09/01/22 Dental Screening Did you have a dental visit in the last 12 months?: Yes Did you have a dental problem in the last 6 months where you did not have access to dental care?: No Was dental information given to patient?: No HPI HPI Comments History of Present Illness Details 67-year-old female presents for a complete physical exam She notes she has retina surgery of the right eye scheduled on 09/16/2022 She has not had blood work done in several months No acute symptoms today PFSH Medical History Asthma Depression GERD (gastroesophageal reflux disease) Hiatal hernia Skin cancer Surgical History History of breast biopsy Hx of colonoscopy Social History Housing: House Are you a primary critical care unit nurse to a significant other at home: No Do you presently have visiting nurse or other home services: No Alcohol intake: current Alcohol intake frequency: a few times a week Patient Tobacco Use Status: Never used Tobacco e-Cigarette/Vaping Use: Never Used Second Hand Smoke Exposure: No service: No Current occupational status: employed Current occupational exposures/hazards: No Cognitive needs: No Hearing needs: No Vision needs: No Questionnaire JESSICA-7 AMB Questionnaire JESSICA-7 Date JESSICA - 7 assessed: 07/18/21 Source: Developed by Drs. Gaurav Trevino, Agueda Neri, Crow Bowling and colleagues, with an educational soila from [employer]. Review of Systems Const Details: Denies chills, Denies fatigue, Denies fever(s), Denies headache(s) and Denies weakness HEENT Denies change in vision, Denies dizziness, Denies headache(s), Denies hearing loss, Denies nasal congestion, Denies sinus pain, Denies sinus pressure and Denies sore throat Card Denies chest pain, Denies lightheadedness, Denies dyspnea and Denies other (palpitations) Resp Denies cough, Denies dyspnea and Denies wheezing GI Denies abdominal pain, Denies melena, Denies hematochezia, Denies change in bowel habits, Denies dyspepsia and Denies nausea Denies hematuria and Denies dysuria Musc Denies abnormal gait, Denies myalgias, Denies arthralgias, Denies numbness and Denies tingling Skin/Breast Denies rash, Denies unusual bruising and Denies wounds Neuro Denies abnormal gait, Denies dizziness, Denies headache(s), Denies memory loss, Denies numbness, Denies Sensory deficit (Neuro), Denies tingling and Denies weakness Psych Denies anxiety, Denies depression and Denies memory loss Endo Denies cold intolerance, Denies fatigue, Denies heat intolerance, Denies polydipsia and Denies polyuria Ang/Lymph Denies easy bleeding and Denies easy bruising Aller/Immun Denies wheezing Physical exam (Primary Care) Vital Signs: Last Vital Signs Pulse 102 H 09/01/22 15:32 Resp 12 09/01/22 15:32 BP 134/80 09/01/22 15:32 Pulse Ox 99 09/01/22 15:32 Oxygen Delivery Method Room Air 09/01/22 15:32 BMI result Body Mass Index 23.8 Tobacco/Smoking Status: Tobacco use Status Tobacco use date assessed 09/16/21 09/01/22 15:29 Patient Tobacco Use Status Never used Tobacco 09/01/22 15:29 e-Cigarette/Vaping Use Never Used 09/01/22 15:29 Const Other: General: no acute distress, well developed, alert and awake Nutritional Appearance: well nourished Orientation/consciousness: patient oriented x3 [facility] Head: Yes normocephalic and Yes atraumatic Ears: hearing grossly normal bilaterally and TM's normal bilaterally General nose exam: Normal external nose present and Normal nares present Mouth: Normal oral and palatal mucosa present and moist mucous membranes Teeth and gingiva: dentition normal Throat: Yes oropharynx normal Eyes Pupils: Equal, round and reactive pupils present and Pupil accommodation reflex normal EOM: EOMs intact bilaterally Neck Neck: Yes normal visual inspection, Yes no lymphadenopathy and Yes trachea midline Thyroid: Thyroid normal Carotids: no bruits Lymphatic: no lymphadenopathy noted Chest Chest palpation & inspection: normal inspection of the chest Resp Effort & Inspection: normal respiratory effort Auscultation: clear to auscultation bilaterally Cardio Rate: regular rate Rhythm: regular rhythm Heart sounds: S1 normal heart sound present, S2 normal heart sound present, no gallops, no murmurs and no rubs Bruits: no abdominal aortic bruits and no carotid bruits GI Palpation (GI): No Abdominal aortic bruit present, Soft to palpation, nontender, No hepatosplenomegaly present and No Rebound tenderness present Auscultation: normal bowel sounds General: Yes no CVA tenderness Back/Spine/Pelvis Back: no CVA tenderness Cervical Spine: cervical ROM normal and No Cervical spine tenderness Thoracic/Lumbar Spine: thoraco-lumbar ROM normal, No pain with thoraco-lumbar ROM, No thoracic spinal tenderness and No lumbar spinal tenderness Skin General: warm and dry. Normal skin color. Normal skin turgor Lesions: no lesions Rashes: no rashes Trauma: no lacerations or abrasions Wounds: no wounds Nails: normal Neuro General: patient oriented x3, gait normal and CN's II-XI intact bilaterally Cranial nerves: Yes Equal, round and reactive pupils present Cognition (Neuro): normal cognition Gait exam (Neuro): Normal gait present Motor exam (neuro): 5/5 motor strength present throughout Sensory Exam: No Sensory deficit (Neuro) Deep tendon reflexes (DTR's): Right patellar reflex intensity grade: 2+ and Left patellar reflex intensity grade: 2+ Extrem General: Yes normal to inspection, No edema and No calf tenderness Psych Appearance: grossly normal Affect: normal affect Attitude: cooperative Thought process: Normal thought process present Assessment and Plan Assessment & Plan (1) Normal physical examination, routine: Code(s): Z00.00 - Encounter for general adult medical examination without abnormal findings Plan: No significant physical restrictions or limitations noted Advised to schedule a follow-up with PCP in 2 months for health maintenance (2) Laboratory tests ordered as part of a complete physical exam (CPE): Code(s): Z00.00 - Encounter for general adult medical examination without abnormal findings Plan: Fasting labs ordered as part of a complete physical exam. Advised to fast for at least 10 hours before getting labs drawn. May drink water Verbalized understanding and agreed with treatment plan. Orders: Orders Comprehensive [place]. Panel Fast Today Z00.00 - Encounter for general adult medical examination without abnormal findings Complete Blood Count no Diff Today Z00.00 - Encounter for general adult medical examination without abnormal findings Lipid Panel Today Z00.00 - Encounter for general adult medical examination without abnormal findings TSH reflex Free T4 Today Z00.00 - Encounter for general adult medical examination without abnormal findings UA CC w/rflx Micro + Cult Today Z00.00 - Encounter for general adult medical examination without abnormal findings Coding Level of Care Code Est Pt Prev Care >65y(26782) Diagnoses Normal physical examination, routine Z00.00 Laboratory tests ordered as part of a complete physical exam (CPE) Z00.00
[2022-09-01 15:32] VITALS: BP 134/80; PULSE 102; RESP 12; O2SAT 99; BMI 23.8
== END 2022-09-01 16:18 | disposition home or self-care (01) ==
PROVIDERS: Visit Provider Nurse Practitioner Family
DX: Z00.00 Encounter for general adult medical examination without abnormal findings (principal)
CPT/HCPCS: 99397

== ENCOUNTER 2022-09-18 12:07 | Outpatient (REF) | payer MEDICARE, OTHER, SELFPAY | END 2022-09-18 12:08 | disposition home or self-care (01) | LOC: HO.LAB 12:07 | PROVIDERS: PCP Hospitalist; Visit Provider Nurse Practitioner Family | DX: Z13.89 Encounter for screening for other disorder (principal) ==

== ENCOUNTER 2022-10-03 08:07 | Outpatient (REF) | payer MEDICARE, OTHER, SELFPAY ==
[2022-10-03 08:44] LABS: Hematocrit 41.3 % (37.0-47.0); Hemoglobin 13.9 g/dl (12.0-16.0); Mean Corpuscular HGB Conc 33.7 g/dl (31.0-35.0); Mean Corpuscular Hemoglobin 30.5 pg (27.0-33.0); Mean Corpuscular Volume 90.6 fL (80.0-98.0); Platelet Count 287 X10*3/uL (160-400); Red Blood Count 4.56 X10*6/uL (4.20-5.50); Red Cell Distribution Width 12.5 % (11.0-16.0); White Blood Count 5.5 X10*3/uL (4.8-10.8)
[2022-10-03 09:39] LABS: Alanine Aminotransferase 19 U/L (0-31); Albumin Level 4.3 g/dL (3.5-5.0); Alkaline Phosphatase 70 U/L (39-117); Anion Gap 14 (12-20); Aspartate Amino Transferase 18 U/L (5-31); Bilirubin Total 0.6 mg/dL (0.0-1.0); Blood Urea Nitrogen 12 mg/dL (9-16); Calcium 10.1 mg/dL (8.4-10.2); Carbon Dioxide 22 mmol/L (22-29); Chloride 109 mmol/L (96-108); Cholesterol 305 mg/dL; Estimated Glomerular Filt Rate 52; Glucose Fasting 94 mg/dL (60-99); HDL Cholesterol 70 mg/dL; LDL Cholesterol Calculated 212 mg/dl; Potassium 4.2 mmol/L (3.3-5.1); Sodium 141 mmol/L (135-145); Triglycerides 117 mg/dL
[2022-10-03 09:44] LABS: TSH reflex Free T4 1.44 uIU/mL (0.32-4.0)
[2022-10-03 12:01] LABS: Appearance Urine Clear; Color Urine Yellow; Glucose Urine UA Negative (Negative); Leukocyte Esterase Urine Negative (Negative); Nitrite Urine Negative (Negative); PH 5.5 (5.0-9.0); Specific Gravity - Urine 1.015 (1.005-1.025); Urine Blood Negative (Negative); Urine Ketones Negative (Negative); Urine Protein Negative (Neg-Trace)
== END 2022-10-03 08:08 | disposition home or self-care (01) ==
LOC: HO.LAB 08:07
PROVIDERS: PCP Hospitalist; Visit Provider Nurse Practitioner Family
DX: Z00.00 Encounter for general adult medical examination without abnormal findings (principal)
CPT/HCPCS: 36415; 80053; 80061; 81003; 84443; 85027

== ENCOUNTER 2022-10-17 10:15 | Outpatient (REF) | payer MEDICARE, OTHER, SELFPAY | END 2022-10-17 10:16 | disposition home or self-care (01) | LOC: HO.MAMMO 10:15 | PROVIDERS: PCP Hospitalist; Visit Provider Hospitalist | DX: Z12.31 Encounter for screening mammogram for malignant neoplasm of breast (principal) | CPT/HCPCS: 77063; 77067 ==

== ENCOUNTER → 2022-10-17 10:30 | Outpatient (BNV) | payer MEDICARE, OTHER, SELFPAY | PROVIDERS: PCP Hospitalist; Visit Provider Radiology Diagnostic Radiology | DX: Z12.31 Encounter for screening mammogram for malignant neoplasm of breast (principal) | CPT/HCPCS: 77063; 77067 ==

== ENCOUNTER 2022-11-27 13:13 | Outpatient (AMB) | payer MEDICARE, OTHER, SELFPAY ==
[2022-11-27 13:16] VITALS: BP 126/74; PULSE 88; RESP 12; TEMP 36.6; O2SAT 99; BMI 24.3
--- NOTE | 2022-11-27 13:16 | MHC.PC.OV ---
Vital Signs 11/27/22 13:16 Height 5 ft 8 in Weight 160 lb BMI 24.3 BP 126/74 Blood Pressure Location Lt brachial Position Sitting Respiration 12 Pulse 88 Pulse Source Pulse Oximeter Temp 97.8 F Temp Source Temporal Artery Scan Pulse Oximetry (%) 99 Oxygen Delivery Method Room Air Intake Visit Reasons: high cholesterol, asthma Intake Note: Patient states that she keeps getting message from pharmacy stating that her Advair Diskus is being refused and patient states that she has to jump through hoops just to get the medication refilled. Patient also states that she got her labs and knows that her cholesterol is high and believes she will have to be put back on a statin. Policy Analyst Required: No Accompanied by: Self / Same As Patient Allergies Penicillins Allergy (Intermediate, Verified 11/27/22 13:39) Angioedema codeine Adverse Reaction (Verified 11/27/22 13:39) Nausea, Abdominal pain Medication List - Last Reconciled 11/27/22 by Reji Ken CNP albuterol sulfate 90 mcg/actuation (ProAir HFA) 2 puffs inhalation Q4-6H PRN bupropion HCl (Wellbutrin XL) 150 mg PO QAM clobetasol 0.05% 1 appl topical BID PRN fluoxetine 20 mg PO DAILY fluticasone propion-salmeterol 250-50 mcg/dose (Advair Diskus) 1 ea inhalation BID montelukast 10 mg PO DAILY Tobacco use date assessed: 11/27/22 Fall risk assessment: 2 + Falls in past year Last assessed Fall Risk: 11/27/22 Dental Screening Dental Screen Date: 11/27/22 Did you have a dental visit in the last 12 months?: Yes Did you have a dental problem in the last 6 months where you did not have access to dental care?: No Was dental information given to patient?: Patient has dentist HPI HPI Comments History of Present Illness Details 67-year-old female presents for health maintenance and review of recent blood work. She had a physical exam done and blood work ordered almost 3 months ago. She has past medical history significant for anxiety, depression, asthma, and high cholesterol. She admits to taking her medications as prescribed. She notes she was on a statin until 4 years ago. She notes that her psychotropic medications effectively control her symptoms. are She states she stopped following a psychiatrist 6 months ago. She states that she does not wish to establish with a psychiatrist or therapist a this time. She notes that her last colonoscopy was 3 years ago in [place]: normal She states that her last mammogram was on 09/2022: normal She reports being diagnosed with osteoporosis as a young adult, tried multiple medications with serious adverse reactions, she followed a system trainer while residing in [place] for weight bearing exercise. She states that her last bone scan was several years ago. She states that she is up to date on her PNA vaccines. [facility] Medical History Skin cancer Depression Asthma GERD (gastroesophageal reflux disease) Hiatal hernia Surgical History History of breast biopsy Hx of colonoscopy Social History Housing: House Are you a primary director of critical care to a significant other at home: No Do you presently have visiting nurse or other home services: No Alcohol intake: current Alcohol intake frequency: a few times a week Patient Tobacco Use Status: Never used Tobacco e-Cigarette/Vaping Use: Never Used Second Hand Smoke Exposure: No service: No Current occupational status: employed Current occupational exposures/hazards: No Cognitive needs: No Hearing needs: No Vision needs: No Questionnaire JESSICA-7 AMB Questionnaire JESSICA-7 Date JESSICA - 7 assessed: 07/18/21 Source: Developed by Drs. Gaurav Trevino, Agueda Neri, Crow Bowling and colleagues, with an educational soila from [employer]. ACT Questionnaire In the past 4 weeks, how much of the time did your asthma keep you from getting as much done at work, school or at home?: A little of the time During the past 4 weeks, how often have you had shortness of breath?: 3-6 times a week During the past 4 weeks, how often did your asthma symptoms wake you up at night or earlier than usual in the morning?: Not at all During the past 4 weeks, how often have you had to use your rescue inhaler or nebulizer medication?: Not at all How would you rate your asthma control during the past 4 weeks?: Well controlled Score: 21 Review of Systems Const Details: Const Denies chills, Denies fatigue, Denies fever(s), Denies headache(s) and Denies weakness ENT Denies dizziness and Denies headache(s) Card Denies chest pain, Denies lightheadedness, Denies dyspnea and Denies other (Palpitations) Resp Denies cough, Denies dyspnea, Denies wheezing and Denies other ( shortness of breath) GI Denies abdominal pain, Denies melena, Denies hematochezia, Denies change in bowel habits, Denies dyspepsia and Denies nausea Denies hematuria and Denies dysuria Musc Denies abnormal gait, Denies myalgias, Denies arthralgias, Denies numbness and Denies tingling Skin/Breast Denies rash, Denies unusual bruising and Denies wounds Neuro Denies abnormal gait, Denies dizziness, Denies headache(s), Denies memory loss, Denies numbness, Denies Sensory deficit (Neuro), Denies tingling and Denies weakness Psych Denies anxiety, Denies depression, Denies memory loss Endo Denies cold intolerance, Denies fatigue, Denies heat intolerance, Denies polydipsia and Denies polyuria Aller/Immun Denies wheezing Physical exam (Primary Care) Vital Signs: Last Vital Signs Temp 97.8 F 11/27/22 13:16 Pulse 88 11/27/22 13:16 Resp 12 11/27/22 13:16 BP 126/74 11/27/22 13:16 Pulse Ox 99 11/27/22 13:16 Oxygen Delivery Method Room Air 11/27/22 13:16 BMI result Body Mass Index 24.3 Tobacco/Smoking Status: Tobacco use Status Tobacco use date assessed 11/27/22 11/27/22 13:27 Patient Tobacco Use Status Never used Tobacco 11/27/22 13:27 e-Cigarette/Vaping Use Never Used 11/27/22 13:27 Const Other: General: no acute distress and well developed Nutritional Appearance: well nourished Orientation/consciousness: patient oriented x3 HENMT Head: Yes normocephalic and Yes atraumatic Eyes General: appearance normal, both eyes and all related structures Pupils: Equal, round and reactive pupils present EOM: EOMs intact bilaterally Resp Effort & Inspection: normal respiratory effort Auscultation: clear to auscultation bilaterally Cardio Rate: regular rate Rhythm: regular rhythm Heart sounds: S1 normal heart sound present, S2 normal heart sound present, no gallops, no murmurs and no rubs GI Palpation (GI): No Abdominal aortic bruit present, Soft to palpation, nontender, No hepatosplenomegaly present and No Rebound tenderness present Auscultation: normal bowel sounds General: Yes no CVA tenderness Back/Spine/Pelvis Back: no CVA tenderness Cervical Spine: cervical ROM normal and No Cervical spine tenderness Thoracic/Lumbar Spine: thoraco-lumbar ROM normal, No pain with thoraco-lumbar ROM, No thoracic spinal tenderness and No lumbar spinal tenderness Extrem General: Yes normal to inspection, No edema and No calf tenderness Skin General: warm and dry. Normal skin color. Normal skin turgor Lesions: no lesions Rashes: no rashes Trauma: no lacerations or abrasions Wounds: no wounds Nails: normal Neuro General: patient oriented x3, gait normal and no focal neuro deficit Cranial nerves: Yes Equal, round and reactive pupils present Cognition (Neuro): normal cognition Gait exam (Neuro): Normal gait present Sensory Exam: No Sensory deficit (Neuro) Psych Appearance: grossly normal Affect: normal affect Attitude: cooperative Thought process: Normal thought process present Assessment and Plan Assessment & Plan (1) Hypercholesterolemia: Code(s): E78.00 - Pure hypercholesterolemia, unspecified Plan: Recent lab results reviewed with patient Significantly elevated total cholesterol and LDL levels Triglycerides and HDL levels her normal Her 10 year risk for ASCVD is 6.7% Atorvastatin ordered. Take as prescribed Advised to limit foods high in saturated fat and avoid foods high trans fat Routine exercise encouraged Will repeat lipid panel. Advised to fast for at least 10 hours and get blood work done 2-3 days before next visit Follow-up in 6 weeks or return sooner with symptoms or concerns Verbalized understanding and agreed with treatment plan. (2) Osteoporosis: Code(s): M81.0 - Age-related osteoporosis without current pathological fracture Qualifiers: Osteoporosis type: unspecified Encounter type: initial encounter Plan: She reports being diagnosed with osteoporosis as a young adult, tried multiple medications with serious adverse reactions, she followed a system trainer while residing in [place] for weight bearing exercise. She states that her last bone scan was several years ago. Bone density scan ordered Orders: Orders Lipid Panel 6 Weeks E78.00 - Pure hypercholesterolemia, unspecified XR DEXA axial skeleton Today M81.0 - Age-related osteoporosis without current pathological fracture Medications: New atorvastatin 10 mg PO BEDTIME 30 days 30 tabs 3RF Coding Level of Care Code Est Pt Level 3 (65496) Diagnoses Hypercholesterolemia E78.00 Osteoporosis M81.0 Osteoporosis type: unspecified Encounter type: initial encounter
== END 2022-11-27 14:07 | disposition home or self-care (01) ==
PROVIDERS: PCP Hospitalist; Visit Provider Nurse Practitioner Family
DX: E78.00 Pure hypercholesterolemia, unspecified (principal); M81.0 Age-related osteoporosis without current pathological fracture
CPT/HCPCS: 99214

== ENCOUNTER 2022-12-13 16:19 | Emergency (ER) | payer MEDICARE, OTHER, SELFPAY ==
--- NOTE | ~2022-12-13 | XR_ITS ---
EXAMINATION: XR HAND, RIGHT CLINICAL INFORMATION: Thumb pain. COMPARISON: None available. TECHNIQUE: PA, lateral, and oblique views of the right hand are submitted. FINDINGS: The bones and soft tissues are normal. No fracture. Alignment is anatomic. Joint spaces are maintained. No erosions or soft tissue calcifications. XR/XR hand RT 2V IMPRESSION: Normal right hand.
--- NOTE | ~2022-12-13 | CT_ITS ---
EXAMINATION: CT HEAD WITHOUT CONTRAST CLINICAL INFORMATION: Fall with head strike. COMPARISON: None available. TECHNIQUE: Contiguous axial imaging was performed from the skull base to vertex without intravenous administration of contrast. This CT examination was performed using dose optimization techniques as appropriate, variously including the following: *Automated exposure control *Adjustment of mA and/or kV according to patient size (this includes techniques or standardized protocols for targeted exams where dose is matched to indication/reason for exam; i.e. extremities or head) *Use of iterative reconstruction technique DLP: 623 mGy-cm FINDINGS: There is no evidence of acute intracranial hemorrhage or territorial infarction. No abnormal mass effect or midline shift is seen. Rivers to white matter differentiation is well preserved. No extra-axial fluid collections are identified. No hydrocephalus. No significant volume loss. There is no abnormal attenuation within the brain parenchyma. Left frontal soft tissue swelling. The mastoid air cells and visualized portions of the paranasal sinuses are well aerated. CT/CT head/brain wo IV con IMPRESSION: Left frontal soft tissue swelling. No underlying calvarial fracture or intracranial hemorrhage.
[2022-12-13 16:28] VITALS: BP 114/64; PULSE 107; RESP 20; TEMP 36.1; O2SAT 98; BMI 24.3
--- NOTE | 2022-12-13 16:28 | ED_ITS ---
HPI - General Adult General Chief complaint: Fall Stated complaint: Fall 3 days ago, hit head Time Seen by Provider: 12/13/22 17:29 Source: patient, RN notes reviewed and old records reviewed Mode of arrival: ambulatory History of Present Illness HPI narrative: 67-year-old female with a past medical history of asthma, GERD, hernia, depression, asthma, HLD, presenting to the ED complaining of left forehead pain/abrasion and periorbital ecchymosis s/p mechanical trip and fall 3 days ago. Patient states she was walking on sidewalk taking pictures with her phone, admits was not paying attention and tripped and fell on leaves face planting cement. Denies LOC or taking anticoagulation. Has been ambulatory since the incident. Also reports mild right thumb a pain due to trying to protect her phone during fall. Denies headache, nausea/vomiting, neck/back pain, vision change/loss. Related Data Previous Rx's Medication Instructions Recorded albuterol sulfate 90 mcg/actuation 2 puff inhalation Q4-6H PRN 07/18/21 aerosol inhaler (ProAir HFA) shortness of breath or wheezing #8.5 grams clobetasol 0.05 % topical cream 1 appl topical BID PRN psoriasis 06/19/22 #45 grams montelukast 10 mg tablet 10 mg PO DAILY #90 tabs 06/19/22 bupropion HCl 150 mg 24 hr tablet, 150 mg PO QAM #90 tabs 07/31/22 extended release (Wellbutrin XL) fluoxetine 20 mg capsule 20 mg PO DAILY #90 caps 07/31/22 atorvastatin 10 mg tablet 10 mg PO BEDTIME 30 days #30 tabs 11/27/22 fluticasone 250 mcg-salmeterol 50 1 ea inhalation BID #60 ea 12/10/22 mcg/dose blistr powdr for inhalation (Advair Diskus) Allergies Allergy/AdvReac Type Severity Reaction Status Date / Time Penicillins Allergy Intermediate Angioedema Verified 12/13/22 16:31 codeine AdvReac Nausea, Verified 12/13/22 16:31 Abdominal pain Review of Systems Review of Systems: Constitutional: No Fever, No Chills, No Fatigue, No Malaise ENT/Mouth: No Ear Pain, No sore throat, No Rhinorrhea, No Swallowing Difficulty Eyes: No Eye Pain, No Swelling, No Redness, No Vision Changes Cardiovascular: No Chest Pain, No SOB Respiratory: No Cough, No Dyspnea Gastrointestinal: No Nausea, No Vomiting, No Abdominal pain Musculoskeletal: No joint pain, No Myalgias, No Joint Swelling Skin: No Skin Lesions, No rash Neuro: No Weakness, No Numbness, No Paresthesias, No Loss of Consciousness, No Dizziness, No Headache Yes all other systems are reviewed and are negative Constitutional: Constitutional: Reports as per [facility] Past Medical History Attestation statement: The following information was validated with the patient. Source: old records reviewed Medical History Skin cancer Depression Asthma GERD (gastroesophageal reflux disease) Hiatal hernia Surgical History History of breast biopsy Hx of colonoscopy Social History Social History Housing: House Are you a primary administrator health care facility to a significant other at home: No Do you presently have visiting nurse or other home services: No Alcohol intake: current Alcohol intake frequency: a few times a week Patient Tobacco Use Status: Never used Tobacco e-Cigarette/Vaping Use: Never Used Second Hand Smoke Exposure: No Advance Directives: No Advance Directives Information Provided: Yes service: No Current occupational status: employed Current occupational exposures/hazards: No Cognitive needs: No Hearing needs: No Vision needs: No Physical Exam ED Vital Signs: Vital Signs - 24 hr 12/13/22 16:28 Temperature 96.9 F Pulse Rate 107 H Respiratory Rate 20 Blood Pressure 114/64 Pulse Oximetry 98 Oxygen Delivery Method Room Air BMI result Body Mass Index 24.3 Const General: cooperative, healthy appearing, no acute distress, alert and awake Orientation/consciousness: patient oriented x3 Limitations: no limitations HENMT Other: + abrasion/hematoma to left forehead with bilateral periorbital ecchymosis. No appreciable step-off. EOMs intact without pain or entrapment. Head: Yes normal to inspection, Yes abrasion, No Bo's sign, Yes hematoma, No laceration, No palpable skull fracture and Yes raccoon eyes Ears: hearing grossly normal bilaterally General nose exam: Normal external nose present Face and sinus: Yes normal facial exam Mouth: Normal oral and palatal mucosa present Throat: Yes posterior oropharynx normal, Yes tonsils normal, Yes uvula midline, No uvula laterally displaced and No uvular edema Eyes General: appearance normal, both eyes and all related structures Conjunctivae: conjunctivae normal Pupils: Equal, round and reactive pupils present EOM: EOMs intact bilaterally and no movement deficit Neck Other: No midline cervical spinous tenderness Neck: Yes normal visual inspection and Yes no meningeal signs Resp Effort & Inspection: normal respiratory effort and no respiratory distress Cardio Rate: regular rate Skin Rashes: no rashes Neuro General: patient oriented x3, gait normal, tone normal, moves all extremities, no meningeal signs, no focal motor deficits and CN's II-XI intact bilaterally Cranial nerves: Yes CN's II-XII intact bilaterally and Yes Equal, round and reactive pupils present Gait exam (Neuro): Normal gait present Motor exam (neuro): 5/5 motor strength present throughout Extrem Other: Right thumb with superficial abrasions to for aspect. Mildly tender. Full range of motion intact. Finger to thumb opposition intact. Neurovascular intact. No snuffbox tenderness Course Course Course Narrative: This is a rapid medical exam: Additional HPI, ROS, PE not included below will be deferred to primary provider. Patient is a 67-year-old female presenting to the emergency department following a fall on . States that she was taking pictures and tripped, fell onto her face on the sidewalk. Denies headaches, vision changes, nausea, vomiting. Reports some pain to left side of forehead with eyebrow movements. Reports eyelid swelling worse in the morning. States that she was not concerned but a friend advised she come to the ED due to her periorbital ecchymosis. Denies loss of consciousness. Was able to walk a few blocks, then asked a friend to drive her the rest of the way home. Abrasion to left side of forehead, bilateral periorbital ecchymosis, L>R. Also complains of right thumb pain. Plan: CT head, x-ray right thumb 1735-- XR hand RT 2V IMPRESSION: Normal right hand. CT head/brain wo IV con IMPRESSION: Left frontal soft tissue swelling. No underlying calvarial fracture or intracranial hemorrhage. Results discussed with patient including worrisome signs and symptoms and strict return precautions, and when to return to the emergency department. They verbalized understanding and feel safe for discharge at this time. Medical Decision Making Medical Decision Making MDM Narrative: 67-year-old female with a past medical history of asthma, GERD, hernia, depression, asthma, HLD, presenting to the ED complaining of left forehead pain/abrasion and periorbital ecchymosis s/p mechanical trip and fall 3 days ago. On exam mildly tachycardic, NAD, nontoxic appearing, physical exam as noted above. Concern for concussion versus fracture versus ICH. No evidence of infection at this time. Unlikely cervical involvement or scaphoid fracture. No evidence of infection at this time Plan: Head CT and x-ray ordered in triage Please refer to course for remaining clinical decision making, interpretation of labs/imaging results, and discussions with consultants and/or family members. Differential Diagnosis Differential Diagnoses: The differential diagnosis associated with the presentation includes As above Admission/Observation Consideration of admission/observation: Escalation of care including admission/observation considered Independent Interpretation I performed an independent interpretation of an: CT Scan (Appear unremarkable) Radiology Impression Discussion of test interpretation with radiology: I have reviewed the radiologist's reading. External Record Review External record reviewed: Inpatient record, Office record, Outpatient record, Prior outpatient labs, Prior outpatient radiology, Primary care record and Outside ED record Tests considered The following testing was considered but not selected: As above Prescription Management I considered prescription management with: Pain Medication Discharge Plan Discharge Clinical Impression: Head injury, Hematoma Patient Disposition: Home, Self-Care Instructions: Head Injury (ED) Additional Instructions: Your CT scan shows some left frontal soft tissue swelling, no fractures or bleeding X-ray of her hand was unremarkable Ice Take Tylenol and Motrin for pain/swelling Follow-up with your doctor If symptoms persist or worsen, constant worsening headache, nausea/vomiting or weakness return to the ED Apply bacitracin and or Neosporin daily Once healed apply anti scar cream like Mederma Prescriptions: No Action fluoxetine 20 mg capsule 20 mg PO DAILY Qty: 90 1RF bupropion HCl [Wellbutrin XL] 150 mg tablet extended release 24 hr 150 mg PO QAM Qty: 90 1RF fluticasone propion-salmeterol [Advair Diskus] 250-50 mcg/dose blister with device 1 ea inhalation BID Qty: 60 0RF atorvastatin 10 mg tablet 10 mg PO BEDTIME 30 Days Qty: 30 3RF albuterol sulfate [ProAir HFA] 90 mcg/actuation HFA aerosol inhaler 2 puff inhalation Q4-6H PRN (Reason: shortness of breath or wheezing) Qty: 8.5 3RF clobetasol 0.05 % cream 1 appl topical BID PRN (Reason: psoriasis) Qty: 45 1RF montelukast 10 mg tablet 10 mg PO DAILY Qty: 90 3RF Referrals: Physician,Unknown J [Primary Care Provider] -
== END 2022-12-13 18:12 | disposition home or self-care (01) ==
PROVIDERS: Emergency Provider Internal Medicine
DX: S09.90XA Unspecified injury of head, initial encounter (principal); S00.83XA Contusion of other part of head, initial encounter; S00.81XA Abrasion of other part of head, initial encounter; S60.311A Abrasion of right thumb, initial encounter; W01.0XXA Fall on same level from slipping, tripping and stumbling without subsequent striking against object, initial encounter; Y93.01 Activity, walking, marching and hiking; Y92.480 Sidewalk as the place of occurrence of the external cause; Y99.9 Unspecified external cause status
CPT/HCPCS: 70450; 73120; 99282; 99284

== ENCOUNTER 2023-01-14 10:54 | Outpatient (REF) | payer MEDICARE, OTHER, SELFPAY ==
--- NOTE | ~2023-01-14 | MM_ITS ---
EXAMINATION: BONE DENSITOMETRY CLINICAL INDICATION: Age-related osteoporosis without current pathological fracture. COMPARISON: This is the patient's baseline examination. TECHNIQUE: Using a Vertical Acuity DXA System (software version: 13.1) manufactured by [employer], dual-energy x-ray absorptiometry was performed of the lumbar spine and left hip. The images are of good technical quality. Summary results are attached. FINDINGS: LEFT FEMUR, NECK: BMD 0.765 g/cm2, Z-score -0.6, T-score -2.0, osteopenia. LEFT FEMUR, TOTAL: BMD 0.820 g/cm2, Z-score -0.4, T-score -1.5, osteopenia. AP SPINE L1-L4: BMD 0.781 g/cm2, Z-score -1.9, T-score -3.3, osteoporosis. IDENTIFIED RISK FACTORS: Osteoporosis, recurrent falls, height loss, history of fracture (adult), menopause. HISTORY OF FRACTURE: Other. MEDICATIONS: Calcium supplements or multivitamin, vitamin D. MM/XR DEXA axial skeleton IMPRESSION: 1. DIAGNOSIS: Osteoporosis based on the lowest T-score value of -3.3 in the lumbar spine applying World Health Organization criteria. 2. 10-YEAR FRACTURE RISK PREDICTION, FRAX: According to the guidelines, FRAX calculation should only be performed on patients in the osteopenia bone density category. Therefore, FRAX was not performed on this patient. 3. Treatment Recommendations: NOF guidelines recommend consideration for treatment in postmenopausal women and men age 50 and older presenting with the following: -A hip or vertebral (clinical or morphometric) fracture. -T-score less than or equal to -2.5 at the femoral neck or spine after appropriate evaluation to exclude secondary causes. -Low bone mass at the hip or spine and a 10-year fracture probability by FRAX of greater than or equal to 3% for hip fracture or greater than or equal to 20% for major osteoporotic fracture based on the [place] adapted WHO algorithm. 4. Other Recommendations: All treatment decisions require clinical judgment and consideration of individual patient factors, including patient preferences, comorbidities, previous drug use, risk factors not captured in the FRAX model (e.g. frailty, falls, vitamin D deficiency, increased bone turnover, interval significant decline in bone density) and possible under or overestimation of fracture risk by FRAX. Additional medical evaluation for secondary cause of low bone mineral density may be appropriate. FUTURE SCAN RECOMMENDATION: People with diagnosed cases of osteoporosis or at high risk for fracture should have regular bone mineral density tests. For patients eligible for Medicare, routine testing is allowed once every 2 years. The testing frequency can be increased to one year for patients who have rapidly progressing disease, those who are receiving or discontinuing medical therapy to restore bone mass, or have additional risk factors.
== END 2023-01-14 10:55 | disposition home or self-care (01) ==
LOC: HO.MAMMO 10:54
PROVIDERS: PCP Nurse Practitioner Family; Visit Provider Nurse Practitioner Family
DX: Z13.820 Encounter for screening for osteoporosis (principal); Z78.0 Asymptomatic menopausal state; M81.0 Age-related osteoporosis without current pathological fracture
CPT/HCPCS: 77080

== ENCOUNTER 2023-02-09 07:10 | Outpatient (REF) | payer MEDICARE, OTHER, SELFPAY ==
[2023-02-09 08:17] LABS: Cholesterol 201 mg/dL (<200); HDL Cholesterol 70 mg/dL (>40); LDL Cholesterol Calculated 116 mg/dL (<100); Triglycerides 77 mg/dL (<150)
== END 2023-02-09 07:11 | disposition home or self-care (01) ==
LOC: HO.LAB 07:10
PROVIDERS: PCP Nurse Practitioner Family; Visit Provider Nurse Practitioner Family
DX: E78.00 Pure hypercholesterolemia, unspecified (principal)
CPT/HCPCS: 36415; 80061

== ENCOUNTER 2023-02-11 11:19 | Outpatient (AMB) | payer MEDICARE, OTHER, SELFPAY ==
--- NOTE | 2023-02-11 11:34 | MHC.PC.OV ---
Vital Signs 02/11/23 11:35 Height 5 ft 8 in Weight 159 lb 2 oz BMI 24.2 BP 124/64 Blood Pressure Location Rt brachial Position Sitting Respiration 13 Pulse 101 H Pulse Source Pulse Oximeter Temp 97.8 F Temp Source Temporal Artery Scan Pulse Oximetry (%) 99 Oxygen Delivery Method Room Air Intake Visit Reasons: f/u hypercholesterolemia Orthotics Prosthetics Technician Required: No Accompanied by: Self / Same As Patient Allergies Penicillins Allergy (Intermediate, Verified 02/11/23 11:48) Angioedema codeine Adverse Reaction (Verified 02/11/23 11:48) Nausea, Abdominal pain Medication List - Last Reviewed 02/11/23 by Anita Ireland MA albuterol sulfate 90 mcg/actuation (ProAir HFA) 2 puffs inhalation Q4-6H PRN atorvastatin 10 mg PO BEDTIME 30 days bupropion HCl (Wellbutrin XL) 150 mg PO QAM cholecalciferol (vitamin D3) 50 mcg PO DAILY clobetasol 0.05% 1 appl topical BID PRN fluoxetine 20 mg PO DAILY fluticasone propion-salmeterol 250-50 mcg/dose (Advair Diskus) 1 ea inhalation BID montelukast 10 mg PO DAILY Tobacco use date assessed: 11/27/22 Fall risk assessment: 2 + Falls in past year Last assessed Fall Risk: 02/11/23 Dental Screening Dental Screen Date: 02/11/23 Did you have a dental visit in the last 12 months?: Yes Did you have a dental problem in the last 6 months where you did not have access to dental care?: No Was dental information given to patient?: Patient has dentist HPI HPI Comments History of Present Illness Details 68-year-old female presents for hyperlipidemia follow-up She was prescribed atorvastatin over 2 months ago. She admits to taking the medication as prescribed without adverse reactions She reports controlled asthma, and anxiety, and depression symptoms. She notes that anxiety and depression symptoms are related to work stressors. 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 [facility] Medical History Skin cancer Depression Asthma GERD (gastroesophageal reflux disease) Hiatal hernia Surgical History History of breast biopsy Hx of colonoscopy Family History (Updated 02/11/23 @ 11:42 by Anita Ireland MA) Other Mental health disorder Social History Housing: House Are you a primary child care centre director to a significant other at home: No Do you presently have visiting nurse or other home services: No Alcohol intake: current Alcohol intake frequency: a few times a week Patient Tobacco Use Status: Never used Tobacco e-Cigarette/Vaping Use: Never Used Second Hand Smoke Exposure: No service: No Current occupational status: employed 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 1. Little interest or pleasure in doing things: several days 2. Feeling down, depressed, or hopeless: several days 3. Trouble falling or staying asleep, or sleeping too much: more than half the days 4. Feeling tired or having little energy: more than half the days 5. Poor appetite or overeating: not at all 6. Feeling bad about yourself - or that you are a failure or have let yourself or your family down: not at all 7. Trouble concentrating on things, such as reading the newspaper or watching television: not at all 8. Moving or speaking so slowly that other people could have noticed. Or the opposite - being so fidgety or restless that you have been moving around a lot more than usual: not at all 9. Thoughts that you would be better off or of hurting yourself in some way: not at all Total score: 6 Depression Screening Interpretation: Positive Depression Screening Follow-up: Existing condition and In treatment Depression Screening Done: Yes Source: Developed by Drs. Gaurav Trevino, Agueda Neri, Crow Bowling and colleagues, with an educational soila from [employer]. JESSICA-7 AMB Questionnaire JESSICA-7 Date JESSICA - 7 assessed: 07/18/21 Feeling nervous, anxious, or on edge: 3 = Nearly every day Not being able to stop or control worryin = Several days Worrying too much about different things: 1 = Several days Trouble relaxin = Nearly every day Being so restless that it is hard to sit still: 0 = Not at all Becoming easily annoyed or irritable: 2 = More than half the days Feeling afraid as if something awful might happen: 0 = Not at all Total JESSICA-7 score (0-4 normal; 5-9 mild; 10-14 moderate; 15-21 severe): 10 Source: Developed by Drs. Gaurav Trevino, Agueda Neri, Crow Bowling and colleagues, with an educational soila from [employer]. ACT Questionnaire In the past 4 weeks, how much of the time did your asthma keep you from getting as much done at work, school or at home?: None of the time During the past 4 weeks, how often have you had shortness of breath?: 3-6 times a week During the past 4 weeks, how often did your asthma symptoms wake you up at night or earlier than usual in the morning?: Not at all During the past 4 weeks, how often have you had to use your rescue inhaler or nebulizer medication?: Not at all How would you rate your asthma control during the past 4 weeks?: Completely controlled ACT Interpretation: Negative Score: 23 Review of Systems Const Details: Const Denies chills, Denies fatigue, Denies fever(s), Denies headache(s) and Denies weakness ENT Denies dizziness and Denies headache(s) Card Denies chest pain, Denies lightheadedness, Denies dyspnea and Denies other (Palpitations) Resp Denies cough, Denies dyspnea, Denies wheezing and Denies other ( shortness of breath) GI Denies abdominal pain, Denies melena, Denies hematochezia, Denies change in bowel habits, Denies dyspepsia and Denies nausea Denies hematuria and Denies dysuria Musc Denies abnormal gait, Denies myalgias, Denies arthralgias, Denies numbness and Denies tingling Skin/Breast Denies rash, Denies unusual bruising and Denies wounds Neuro Denies abnormal gait, Denies dizziness, Denies headache(s), Denies memory loss, Denies numbness, Denies Sensory deficit (Neuro), Denies tingling and Denies weakness Psych Denies anxiety, Denies depression, Denies memory loss Endo Denies cold intolerance, Denies fatigue, Denies heat intolerance, Denies polydipsia and Denies polyuria Aller/Immun Denies wheezing Physical exam (Primary Care) Vital Signs: Last Vital Signs Temp 97.8 F 02/11/23 11:35 Pulse 101 H 02/11/23 11:35 Resp 13 02/11/23 11:35 BP 124/64 02/11/23 11:35 Pulse Ox 99 02/11/23 11:35 Oxygen Delivery Method Room Air 02/11/23 11:35 BMI result Body Mass Index 24.2 Tobacco/Smoking Status: Tobacco use Status Tobacco use date assessed 11/27/22 02/11/23 11:42 Patient Tobacco Use Status Never used Tobacco 02/11/23 11:42 e-Cigarette/Vaping Use Never Used 02/11/23 11:42 Depression Screening Interpretation: Positive Depression Screening Follow-up: Existing condition and In treatment Const Other: General: no acute distress and well developed Nutritional Appearance: well nourished Orientation/consciousness: patient oriented x3 HENMT Head: Yes normocephalic and Yes atraumatic Eyes General: appearance normal, both eyes and all related structures Pupils: Equal, round and reactive pupils present EOM: EOMs intact bilaterally Resp Effort & Inspection: normal respiratory effort Auscultation: clear to auscultation bilaterally Cardio Rate: regular rate Rhythm: regular rhythm Heart sounds: S1 normal heart sound present, S2 normal heart sound present, no gallops, no murmurs and no rubs GI Palpation (GI): No Abdominal aortic bruit present, Soft to palpation, nontender, No hepatosplenomegaly present and No Rebound tenderness present Auscultation: normal bowel sounds General: Yes no CVA tenderness Back/Spine/Pelvis Back: no CVA tenderness Cervical Spine: cervical ROM normal and No Cervical spine tenderness Thoracic/Lumbar Spine: thoraco-lumbar ROM normal, No pain with thoraco-lumbar ROM, No thoracic spinal tenderness and No lumbar spinal tenderness Extrem General: Yes normal to inspection, No edema and No calf tenderness Skin General: warm and dry. Normal skin color. Normal skin turgor Lesions: no lesions Rashes: no rashes Trauma: no lacerations or abrasions Wounds: no wounds Nails: normal Neuro General: patient oriented x3, gait normal and no focal neuro deficit Cranial nerves: Yes Equal, round and reactive pupils present Cognition (Neuro): normal cognition Gait exam (Neuro): Normal gait present Sensory Exam: No Sensory deficit (Neuro) Psych Appearance: grossly normal Affect: normal affect Attitude: cooperative Thought process: Normal thought process present Assessment and Plan Assessment & Plan (1) Hypercholesterolemia: Code(s): E78.00 - Pure hypercholesterolemia, unspecified Plan: Recent total cholesterol level is slightly elevated, 201, LDL, triglycerides, and HDL levels are normal Continue to take atorvastatin as prescribed Advised to limit foods high in saturated fat and avoid foods high trans fat Routine exercise encouraged Will repeat lipid panel in 3 months. Advised to fast for 10-12 hours, may drink water only, and get blood work done before her next visit Follow-up in 3 months Verbalized understanding and agreed with treatment plan (2) Anxiety with depression: Code(s): F41.8 - Other specified anxiety disorders Plan: She reports controlled anxiety and depression symptoms on current treatment regimen She relates her anxiety and depression symptoms to work stressors. She notes that she is retiring next month Continue take bupropion and fluoxetine as prescribed Routine exercise encouraged Follow-up in 3 months or return sooner with worsening or new symptoms Verbalized understanding and agreed with treatment plan (3) Osteoporosis: Code(s): M81.0 - Age-related osteoporosis without current pathological fracture Qualifiers: Osteoporosis type: unspecified Encounter type: initial encounter Plan: She has history of osteoporosis Recent DEXA scan revealed osteoporosis She is on vitamin-D supplement. Encouraged to continue to take daily Referred to endocrinology Follow-up with symptoms or concerns Verbalized understanding and agreed with the plan (4) Asthma: Code(s): J45.909 - Unspecified asthma, uncomplicated Plan: Well-controlled Continue with current treatment regimen Follow-up with symptoms or concerns Verbalized understanding and agreed with treatment plan Orders: Orders Lipid Panel 3 Months E78.00 - Pure hypercholesterolemia, unspecified Referrals Endocrinology Referral M81.0 - Age-related osteoporosis without current pathological fracture Medications: Refilled bupropion HCl (Wellbutrin XL) 150 mg PO QAM 90 tabs 1RF fluoxetine 20 mg PO DAILY 90 caps 1RF fluticasone propion-salmeterol 250-50 mcg/dose (Advair Diskus) 1 ea inhalation BID 60 ea 3RF Coding Level of Care Code Est Pt Level 3 (04179) Diagnoses Hypercholesterolemia E78.00 Anxiety with depression F41.8 Osteoporosis M81.0 Osteoporosis type: unspecified Encounter type: initial encounter Asthma J45.909
[2023-02-11 11:35] VITALS: BP 124/64; PULSE 101; RESP 13; TEMP 36.6; O2SAT 99; BMI 24.2
== END 2023-02-11 12:04 | disposition home or self-care (01) ==
PROVIDERS: PCP Nurse Practitioner Family; Visit Provider Nurse Practitioner Family
DX: E78.00 Pure hypercholesterolemia, unspecified (principal); F41.8 Other specified anxiety disorders; M81.0 Age-related osteoporosis without current pathological fracture; J45.909 Unspecified asthma, uncomplicated
CPT/HCPCS: 99213

== ENCOUNTER 2023-05-20 12:22 | Outpatient (AMB) | payer MEDICARE, OTHER, SELFPAY ==
--- NOTE | 2023-05-20 12:43 | MHC.PC.OV ---
Vital Signs 05/20/23 12:46 Height 5 ft 8 in Weight 159 lb 4 oz BMI 24.2 BP 102/78 Blood Pressure Location Rt brachial Position Sitting Respiration 14 Pulse 86 Pulse Source Pulse Oximeter Temp 98.7 F Temp Source Oral Pulse Oximetry (%) 99 Oxygen Delivery Method Room Air Intake Visit Reasons: cataract, Dr. Briceño Intake Note: Preop cataracts Drop Forger Helper Required: No Allergies Penicillins Allergy (Intermediate, Verified 05/20/23 13:00) Angioedema codeine Adverse Reaction (Verified 05/20/23 13:00) Nausea, Abdominal pain Medication List - Last Reconciled 05/20/23 by Hannah Kendall, RESIDENTIAL PROGRAM MANAGER-BC albuterol sulfate 90 mcg/actuation (ProAir HFA) 2 puffs inhalation Q4-6H PRN atorvastatin 10 mg PO BEDTIME 30 days bupropion HCl (Wellbutrin XL) 150 mg PO QAM cholecalciferol (vitamin D3) 50 mcg PO DAILY clobetasol 0.05% 1 appl topical BID PRN fluoxetine 20 mg PO DAILY fluticasone propion-salmeterol 250-50 mcg/dose (Advair Diskus) 1 ea inhalation BID montelukast 10 mg PO DAILY Tobacco use date assessed: 05/20/23 Dental Screening Dental Screen Date: 05/20/23 Did you have a dental visit in the last 12 months?: Yes Did you have a dental problem in the last 6 months where you did not have access to dental care?: No Was dental information given to patient?: Patient has dentist HPI HPI Comments History of Present Illness Details 68-year-old female with major depressive disorder, asthma, GERD, hiatal hernia, skin cancer, hyperlipidemia, osteoporosis Here today for preoperative clearance. Surgery Type: cataract extraction, right Anesthesia Type: unknown Surgeon: Dr Briceño Date: 06/11/23 Any past surgical procedures: retinal surgery, gallbladder Any complications from anesthesia or in post-op period: none ASA or NSAID Use: none Current smoker: No Alcohol use: Denies Drug use: Denies METs: > 4 climb flight of stairs, golf, walk, yardwork Medical history: Asthma yes COPD no Obesity yes Diabetes no PFSH Medical History Skin cancer Depression Asthma GERD (gastroesophageal reflux disease) Hiatal hernia Surgical History History of breast biopsy Hx of colonoscopy Family History (Updated 02/11/23 @ 11:42 by Anita Ireland MA) Other Mental health disorder Social History Housing: House Are you a primary senior care specialist to a significant other at home: No Do you presently have visiting nurse or other home services: No Alcohol intake: current Alcohol intake frequency: a few times a week Patient Tobacco Use Status: Never used Tobacco e-Cigarette/Vaping Use: Never Used Second Hand Smoke Exposure: No service: No Current occupational status: employed 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 How often do you have a drink containing alcohol?: 2-3 times a week 2. How many drinks containing alcohol do you have on a typical day when you are drinking?: 1 or 2 3. How often do you have six or more drinks on one occasion?: Never Total Score: 3 JESSICA-7 AMB Questionnaire JESSICA-7 Date JESSICA - 7 assessed: 07/18/21 Source: Developed by Drs. Gaurav Trevino, Agueda Neri, Crow Bowling and colleagues, with an educational soila from [employer]. Review of Systems Const All systems reviewed & are unremarkable except as noted in HPI and below Physical exam (Primary Care) Vital Signs: Last Vital Signs Temp 98.7 F 05/20/23 12:46 Pulse 86 05/20/23 12:46 Resp 14 05/20/23 12:46 BP 102/78 05/20/23 12:46 Pulse Ox 99 05/20/23 12:46 Oxygen Delivery Method Room Air 05/20/23 12:46 BMI result Body Mass Index 24.2 Tobacco/Smoking Status: Tobacco use Status Tobacco use date assessed 05/20/23 05/20/23 12:49 Patient Tobacco Use Status Never used Tobacco 05/20/23 12:49 e-Cigarette/Vaping Use Never Used 05/20/23 12:49 Const Other: awake alert scleras nonicteric RRR LS CTAB Assessment and Plan Assessment & Plan (1) Preoperative clearance: Comment: Medically cleared for cataract extraction 06/11/[address] Briceño. Code(s): Z01.818 - Encounter for other preprocedural examination Plan: This note is constructed using voice recognition software. While every effort has been made to ensure accuracy in community organizer, still errors may have been included Sometimes, these errors may affect the content or meaning of the given sentence . Total time spent caring for the patient today was 30 minutes. This includes time spent before the visit reviewing the chart, time spent during the visit, and time spent after the visit on documentation Coding Level of Care Code Est Pt Level 4 (45166) Diagnoses Preoperative clearance Z01.818
[2023-05-20 12:46] VITALS: BP 102/78; PULSE 86; RESP 14; TEMP 37.1; O2SAT 99; BMI 24.2
== END 2023-05-20 13:07 | disposition home or self-care (01) ==
PROVIDERS: PCP Nurse Practitioner Family; Visit Provider Nurse Practitioner Family
DX: Z01.818 Encounter for other preprocedural examination (principal)
CPT/HCPCS: 99214

== ENCOUNTER 2023-06-05 10:16 | Outpatient (REF) | payer MEDICARE, OTHER, SELFPAY ==
[2023-06-05 12:40] LABS: Cholesterol 215 mg/dL (<200); HDL Cholesterol 72 mg/dL (>40); LDL Cholesterol Calculated 124 mg/dL (<100); Triglycerides 99 mg/dL (<150)
== END 2023-06-05 10:17 | disposition home or self-care (01) ==
LOC: HO.LAB 10:16
PROVIDERS: PCP Nurse Practitioner Family; Visit Provider Nurse Practitioner Family
DX: E78.00 Pure hypercholesterolemia, unspecified (principal)
CPT/HCPCS: 36415; 80061

== ENCOUNTER 2023-06-08 11:53 | Outpatient (AMB) | payer MEDICARE, OTHER, SELFPAY ==
[2023-06-08 12:13] VITALS: BP 104/56; PULSE 89; RESP 13; O2SAT 98; BMI 23.9
--- NOTE | 2023-06-08 12:13 | MHC.PC.OV ---
Vital Signs 06/08/23 12:13 06/08/23 12:58 Height 5 ft 8 in Weight 157 lb BMI 23.9 BP 104/56 L 110/74 Blood Pressure Location Lt brachial Rt brachial Position Sitting Sitting Respiration 13 Pulse 89 Pulse Source Pulse Oximeter Pulse Oximetry (%) 98 Oxygen Delivery Method Room Air Intake Visit Reasons: HLD, anxiety, depression Intake Note: Patient is here for a follow up of HLD, anxiety and depression. [employer] Consultant Required: No Accompanied by: Self / Same As Patient Allergies Penicillins Allergy (Intermediate, Verified 06/08/23 12:57) Angioedema codeine Adverse Reaction (Verified 06/08/23 12:57) Nausea, Abdominal pain Medication List - Last Reconciled 06/08/23 by Reji Ken CNP albuterol sulfate 90 mcg/actuation (ProAir HFA) 2 puffs inhalation Q4-6H PRN atorvastatin 10 mg PO BEDTIME 30 days bupropion HCl XL (Wellbutrin XL) 150 mg PO QAM cholecalciferol (vitamin D3) 50 mcg PO DAILY clobetasol 0.05% 1 appl topical BID PRN fluoxetine 20 mg PO DAILY fluticasone propion-salmeterol 250-50 mcg/dose (Advair Diskus) 1 ea inhalation BID montelukast 10 mg PO DAILY Tobacco use date assessed: 05/20/23 Dental Screening Dental Screen Date: 05/20/23 HPI HPI Comments History of Present Illness Details 68-year-old female presents for hypercholesterolemia, anxiety, and depression follow-up. She admits to taking her medications as prescribed without adverse reactions. However, she lost the bottle of her Atorvastatin and did not take the medication for 1 week before she had her lipid panel labs done. She refilled the medication today and will start taking as prescribed. She reports controlled anxiety and depression symptoms since she retired early March,. She notes that she has not been under significant stress she she retired. She notes that she is scheduled for cataract surgery of the right eye in the next few days. [facility] Medical History Skin cancer Depression Asthma GERD (gastroesophageal reflux disease) Hiatal hernia Surgical History History of breast biopsy Hx of colonoscopy Family History (Updated 02/11/23 @ 11:42 by RAZIA King) Other Mental health disorder Social History Housing: House Are you a primary career representative to a significant other at home: No Do you presently have visiting nurse or other home services: No Alcohol intake: current Alcohol intake frequency: a few times a week Patient Tobacco Use Status: Never used Tobacco e-Cigarette/Vaping Use: Never Used Second Hand Smoke Exposure: No service: No Current occupational status: employed 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 1. Little interest or pleasure in doing things: not at all 2. Feeling down, depressed, or hopeless: not at all 3. Trouble falling or staying asleep, or sleeping too much: not at all 4. Feeling tired or having little energy: more than half the days 5. Poor appetite or overeating: not at all 6. Feeling bad about yourself - or that you are a failure or have let yourself or your family down: not at all 7. Trouble concentrating on things, such as reading the newspaper or watching television: not at all 8. Moving or speaking so slowly that other people could have noticed. Or the opposite - being so fidgety or restless that you have been moving around a lot more than usual: not at all 9. Thoughts that you would be better off or of hurting yourself in some way: not at all Total score: 2 Depression Screening Interpretation: Negative Depression Screening Done: Yes 36651 - PHQ-9 Billing: Yes Source: Developed by Drs. Gaurav Trevino, Agueda Neri, Crow Bowling and colleagues, with an educational soila from [employer]. Thrive Questionnaire Date Thrive assessed: 06/08/23 I am a: Patient What is your living situation today?: I have a steady place to live Within the past 12 months, did the food you bought not last and you didn't have the money to get more?: Never true Within the past 12 months, did you worry whether your food would run out before you got money to buy more?: Never true Do you have trouble paying for medicines?: No Do you have trouble getting transportation to medical appointments?: No Do you have trouble paying your heating and electricity bill?: No Do you have trouble taking care of your child, family member or friend?: No Do you have trouble with day-to-day activities such as bathing, preparing meals, shopping, managing finances, etc.?: No Are you currently unemployed and looking for a job?: No Are you interested in more education?: No Please select the resources that you would like help with: None Currently or been in a relationship where the following occur: no concerns reported THRIVE Score: 0 JESSICA-7 AMB Questionnaire JESSICA-7 Date JESSICA - 7 assessed: 06/08/23 Feeling nervous, anxious, or on edge: 0 = Not at all Not being able to stop or control worryin = Not at all Worrying too much about different things: 0 = Not at all Trouble relaxin = Several days Being so restless that it is hard to sit still: 0 = Not at all Becoming easily annoyed or irritable: 1 = Several days Feeling afraid as if something awful might happen: 0 = Not at all Total JESSICA-7 score (0-4 normal; 5-9 mild; 10-14 moderate; 15-21 severe): 2 Source: Developed by Drs. Gaurav Trevino, Agueda Neri, Crow Bowling and colleagues, with an educational soila from [employer]. JESSICA-7 Assessment Billing JESSICA-7 Assessment Tool: JESSICA-7 Assessment 80272 Review of Systems Const Details: Const Denies chills, Denies fatigue, Denies fever(s), Denies headache(s) and Denies weakness ENT Denies dizziness and Denies headache(s) Card Denies chest pain, Denies lightheadedness, Denies dyspnea and Denies other (Palpitations) Resp Denies cough, Denies dyspnea, Denies wheezing and Denies other ( shortness of breath) GI Denies abdominal pain, Denies melena, Denies hematochezia, Denies change in bowel habits, Denies dyspepsia and Denies nausea Denies hematuria and Denies dysuria Musc Denies abnormal gait, Denies myalgias, Denies arthralgias, Denies numbness and Denies tingling Skin/Breast Denies rash, Denies unusual bruising and Denies wounds Neuro Denies abnormal gait, Denies dizziness, Denies headache(s), Denies memory loss, Denies numbness, Denies Sensory deficit (Neuro), Denies tingling and Denies weakness Psych Denies anxiety, Denies depression, Denies memory loss Endo Denies cold intolerance, Denies fatigue, Denies heat intolerance, Denies polydipsia and Denies polyuria Aller/Immun Denies wheezing Physical exam (Primary Care) Vital Signs: Last Vital Signs Pulse 89 06/08/23 12:13 Resp 13 06/08/23 12:13 BP 104/56 L 06/08/23 12:13 Pulse Ox 98 06/08/23 12:13 Oxygen Delivery Method Room Air 06/08/23 12:13 BMI result Body Mass Index 23.9 Tobacco/Smoking Status: Tobacco use Status Tobacco use date assessed 05/20/23 06/08/23 12:13 Patient Tobacco Use Status Never used Tobacco 06/08/23 12:13 e-Cigarette/Vaping Use Never Used 06/08/23 12:13 PHQ-9: PHQ-9 Score PHQ-9: Total score 2 06/08/23 12:20 Depression Screening Interpretation: Negative Thrive Assessment: Date of Thrive Assessment Date Thrive assessed 06/08/23 06/08/23 12:21 Currently or been in a relationship where the following occur: no concerns reported Const Other: General: no acute distress and well developed Nutritional Appearance: well nourished Orientation/consciousness: patient oriented x3 HENMT Head: Yes normocephalic and Yes atraumatic Eyes General: appearance normal, both eyes and all related structures Pupils: Equal, round and reactive pupils present EOM: EOMs intact bilaterally Resp Effort & Inspection: normal respiratory effort Auscultation: clear to auscultation bilaterally Cardio Rate: regular rate Rhythm: regular rhythm Heart sounds: S1 normal heart sound present, S2 normal heart sound present, no gallops, no murmurs and no rubs GI Palpation (GI): No Abdominal aortic bruit present, Soft to palpation, nontender, No hepatosplenomegaly present and No Rebound tenderness present Auscultation: normal bowel sounds General: Yes no CVA tenderness Back/Spine/Pelvis Back: no CVA tenderness Cervical Spine: cervical ROM normal and No Cervical spine tenderness Thoracic/Lumbar Spine: thoraco-lumbar ROM normal, No pain with thoraco-lumbar ROM, No thoracic spinal tenderness and No lumbar spinal tenderness Extrem General: Yes normal to inspection, No edema and No calf tenderness Skin General: warm and dry. Normal skin color. Normal skin turgor Neuro General: patient oriented x3, gait normal and no focal neuro deficit Cranial nerves: Yes Equal, round and reactive pupils present Cognition (Neuro): normal cognition Gait exam (Neuro): Normal gait present Sensory Exam: No Sensory deficit (Neuro) Psych Appearance: grossly normal Affect: normal affect Attitude: cooperative Thought process: Normal thought process present Assessment and Plan Assessment & Plan (1) Hypercholesterolemia: Code(s): E78.00 - Pure hypercholesterolemia, unspecified Plan: Recent cholesterol and LDL levels are slightly elevated than previous, 215 and 124 respectively. Triglycerides and HDL levels are normal Continue to take atorvastatin 10 mg every night Advised to limit foods high in saturated fat and avoid foods high in trans fat Routine exercise encouraged Will recheck lipid panel level in 3 months. Advised to get fasting blood work done before next visit Verbalized understanding and agreed with the plan (2) Anxiety with depression: Code(s): F41.8 - Other specified anxiety disorders Plan: Controlled anxiety and depression symptoms since she retired earlier this year PHQ-9 and JESSICA-7 scores are normal Continue to take bupropion and fluoxetine as prescribed Routine exercise encouraged Follow-up in 3 months or return sooner with symptoms or concerns Verbalized understanding and agreed with treatment plan Orders: Orders Lipid Panel 3 Months E78.00 - Pure hypercholesterolemia, unspecified Medications: Refilled atorvastatin 10 mg PO BEDTIME 30 days 30 tabs 3RF Coding Level of Care Code Est Pt Level 3 (41860) Diagnoses Hypercholesterolemia E78.00 Anxiety with depression F41.8 Additional Codes JESSICA-7 Assessment Billing - JESSICA-7 Assessment Tool: JESSICA-7 Assessment 96017 ([id number])
[2023-06-08 12:58] VITALS: BP 110/74
== END 2023-06-08 13:05 | disposition home or self-care (01) ==
PROVIDERS: PCP Nurse Practitioner Family; Visit Provider Nurse Practitioner Family
DX: E78.00 Pure hypercholesterolemia, unspecified (principal); F41.8 Other specified anxiety disorders
CPT/HCPCS: 99213

== ENCOUNTER 2023-09-04 09:26 | Outpatient (REF) | payer MEDICARE, OTHER, SELFPAY ==
[2023-09-04 10:23] LABS: Cholesterol 209 mg/dL (<200); HDL Cholesterol 73 mg/dL (>40); LDL Cholesterol Calculated 120 mg/dL (<100); Triglycerides 82 mg/dL (<150)
== END 2023-09-04 09:27 | disposition home or self-care (01) ==
LOC: HO.LAB 09:26
PROVIDERS: PCP Nurse Practitioner Family; Visit Provider Nurse Practitioner Family
DX: E78.00 Pure hypercholesterolemia, unspecified (principal)
CPT/HCPCS: 36415; 80061

== ENCOUNTER 2023-09-07 11:08 | Outpatient (AMB) | payer MEDICARE, OTHER, SELFPAY ==
--- NOTE | 2023-09-07 11:09 | MHC.PC.OV ---
Vital Signs 09/07/23 11:14 Weight 158 lb 6 oz BP 118/72 Blood Pressure Location Lt brachial Position Sitting Respiration 16 Pulse 84 Pulse Source Pulse Oximeter Temp 97.5 F Temp Source Temporal Artery Scan Pulse Oximetry (%) 99 Oxygen Delivery Method Room Air Intake Visit Reasons: hypercholesterolemia, anxiety, depression Intake Note: patient here for follow up. Shellfish Manager Required: No Is last menstrual period known: No Post menopausal: No Patient : No Allergies Penicillins Allergy (Intermediate, Verified 09/07/23 11:39) Angioedema codeine Adverse Reaction (Verified 09/07/23 11:39) Nausea, Abdominal pain Medication List - Last Reconciled 09/07/23 by Reji Ken CNP albuterol sulfate 90 mcg/actuation (ProAir HFA) 2 puffs inhalation Q4-6H PRN atorvastatin 10 mg PO BEDTIME 30 days bupropion HCl XL (Wellbutrin XL) 150 mg PO QAM cholecalciferol (vitamin D3) 50 mcg PO DAILY clobetasol 0.05% 1 appl topical BID PRN fluoxetine 20 mg PO DAILY fluticasone propion-salmeterol 250-50 mcg/dose (Advair Diskus) 1 ea inhalation BID montelukast 10 mg PO DAILY Tobacco use date assessed: 05/20/23 Fall risk assessment: 2 + Falls in past year Last assessed Fall Risk: 09/07/23 Dental Screening Dental Screen Date: 05/20/23 HPI HPI Comments History of Present Illness Details 68-year-old female presents for hypercholesterolemia, anxiety, and depression follow-up She admits to taking her medications as prescribed without adverse reactions She offers no complaints and denies acute symptoms at this time [facility] Medical History Skin cancer Depression Asthma GERD (gastroesophageal reflux disease) Hiatal hernia Surgical History History of breast biopsy Hx of colonoscopy Family History (Updated 02/11/23 @ 11:42 by RAZIA King) Other Mental health disorder Social History Housing: House Are you a primary youth care worker to a significant other at home: No Do you presently have visiting nurse or other home services: No Alcohol intake: current Alcohol intake frequency: a few times a week Patient Tobacco Use Status: Never used Tobacco e-Cigarette/Vaping Use: Never Used Second Hand Smoke Exposure: No service: No Current occupational status: employed 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 1. Little interest or pleasure in doing things: not at all 2. Feeling down, depressed, or hopeless: not at all 3. Trouble falling or staying asleep, or sleeping too much: several days 4. Feeling tired or having little energy: not at all 5. Poor appetite or overeating: not at all 6. Feeling bad about yourself - or that you are a failure or have let yourself or your family down: not at all 7. Trouble concentrating on things, such as reading the newspaper or watching television: not at all 8. Moving or speaking so slowly that other people could have noticed. Or the opposite - being so fidgety or restless that you have been moving around a lot more than usual: not at all 9. Thoughts that you would be better off or of hurting yourself in some way: not at all Total score: 1 Depression Screening Interpretation: Negative Depression Screening Done: Yes 81528 - PHQ-9 Billing: Yes Source: Developed by Drs. Gaurav Trevino, Agueda Neri, Crow Bowling and colleagues, with an educational soila from [employer]. Thrive Questionnaire Date Thrive assessed: 06/08/23 AUDIT C Alcohol Use Questionnaire (AUDIT-C) 1. How often do you have a drink containing alcohol?: 2-3 times a week 2. How many drinks containing alcohol do you have on a typical day when you are drinking?: 1 or 2 3. How often do you have six or more drinks on one occasion?: Never Total Score: 3 JESSICA-7 AMB Questionnaire JESSICA-7 Date JESSICA - 7 assessed: 09/07/23 Feeling nervous, anxious, or on edge: 0 = Not at all Not being able to stop or control worryin = Not at all Worrying too much about different things: 0 = Not at all Trouble relaxin = Not at all Being so restless that it is hard to sit still: 0 = Not at all Becoming easily annoyed or irritable: 0 = Not at all Feeling afraid as if something awful might happen: 0 = Not at all Total JESSICA-7 score (0-4 normal; 5-9 mild; 10-14 moderate; 15-21 severe): 0 Source: Developed by Drs. Gaurav Trevino, Agueda Neri, Crow Bowling and colleagues, with an educational soila from [employer]. JESSICA-7 Assessment Billing JESSICA-7 Assessment Tool: JESSICA-7 Assessment 56298 ACT Questionnaire In the past 4 weeks, how much of the time did your asthma keep you from getting as much done at work, school or at home?: None of the time During the past 4 weeks, how often have you had shortness of breath?: Not at all During the past 4 weeks, how often did your asthma symptoms wake you up at night or earlier than usual in the morning?: Not at all During the past 4 weeks, how often have you had to use your rescue inhaler or nebulizer medication?: Not at all How would you rate your asthma control during the past 4 weeks?: Well controlled Score: 24 Review of Systems Const Details: Const Denies chills, Denies fatigue, Denies fever(s), Denies headache(s) and Denies weakness ENT Denies dizziness and Denies headache(s) Card Denies chest pain, Denies lightheadedness, Denies dyspnea and Denies other (Palpitations) Resp Denies cough, Denies dyspnea, Denies wheezing and Denies other ( shortness of breath) GI Denies abdominal pain, Denies melena, Denies hematochezia, Denies change in bowel habits, Denies dyspepsia and Denies nausea Denies hematuria and Denies dysuria Musc Denies abnormal gait, Denies myalgias, Denies arthralgias, Denies numbness and Denies tingling Skin/Breast Denies rash, Denies unusual bruising and Denies wounds Neuro Denies abnormal gait, Denies dizziness, Denies headache(s), Denies memory loss, Denies numbness, Denies Sensory deficit (Neuro), Denies tingling and Denies weakness Psych Denies anxiety, Denies depression, Denies memory loss Endo Denies cold intolerance, Denies fatigue, Denies heat intolerance, Denies polydipsia and Denies polyuria Aller/Immun Denies wheezing Physical exam (Primary Care) Vital Signs: Last Vital Signs Temp 97.5 F 09/07/23 11:14 Pulse 84 09/07/23 11:14 Resp 16 09/07/23 11:14 BP 118/72 09/07/23 11:14 Pulse Ox 99 09/07/23 11:14 Oxygen Delivery Method Room Air 09/07/23 11:14 Tobacco/Smoking Status: Tobacco use Status Tobacco use date assessed 05/20/23 09/07/23 11:11 Patient Tobacco Use Status Never used Tobacco 09/07/23 11:11 e-Cigarette/Vaping Use Never Used 09/07/23 11:11 PHQ-9: PHQ-9 Score PHQ-9: Total score 1 09/07/23 11:19 Depression Screening Interpretation: Negative Thrive Assessment: Date of Thrive Assessment Date Thrive assessed 06/08/23 09/07/23 11:11 Const Other: General: no acute distress and well developed Nutritional Appearance: well nourished Orientation/consciousness: patient oriented x3 HENMT Head: Yes normocephalic and Yes atraumatic Eyes General: appearance normal, both eyes and all related structures Pupils: Equal, round and reactive pupils present EOM: EOMs intact bilaterally Resp Effort & Inspection: normal respiratory effort Auscultation: clear to auscultation bilaterally Cardio Rate: regular rate Rhythm: regular rhythm Heart sounds: S1 normal heart sound present, S2 normal heart sound present, no gallops, no murmurs and no rubs GI Palpation (GI): No Abdominal aortic bruit present, Soft to palpation, nontender, No hepatosplenomegaly present and No Rebound tenderness present Auscultation: normal bowel sounds General: Yes no CVA tenderness Back/Spine/Pelvis Back: no CVA tenderness Cervical Spine: cervical ROM normal and No Cervical spine tenderness Thoracic/Lumbar Spine: thoraco-lumbar ROM normal, No pain with thoraco-lumbar ROM, No thoracic spinal tenderness and No lumbar spinal tenderness Extrem General: Yes normal to inspection, No edema and No calf tenderness Skin General: warm and dry. Normal skin color. Normal skin turgor Neuro General: patient oriented x3, gait normal and no focal neuro deficit Cranial nerves: Yes Equal, round and reactive pupils present Cognition (Neuro): normal cognition Gait exam (Neuro): Normal gait present Sensory Exam: No Sensory deficit (Neuro) Psych Appearance: grossly normal Affect: normal affect Attitude: cooperative Thought process: Normal thought process present Assessment and Plan Assessment & Plan (1) Hypercholesterolemia: Code(s): E78.00 - Pure hypercholesterolemia, unspecified Plan: Recent triglycerides, LDL, and HDL levels are normal, 82, 120, and 73 respectively; total cholesterol is slightly elevated, 209 Continue to take atorvastatin 10 mg daily Advised to limit foods high in saturated fat and avoid foods high in trans fat Routine exercise encouraged Will recheck lipid panel levels in 3 months Encouraged to follow-up in 1 month for an extended physical exam or sooner with symptoms or concerns Verbalized understanding and agreed with treatment plan (2) Anxiety with depression: Code(s): F41.8 - Other specified anxiety disorders Plan: Reports controlled anxiety and depressive symptoms Continue current treatment regimen Routine exercise encouraged Follow-up with symptoms or concerns Verbalized understanding and agreed with the plan (3) Laboratory tests ordered as part of a complete physical exam (CPE): Code(s): Z00.00 - Encounter for general adult medical examination without abnormal findings Plan: Fasting labs ordered in preparation of a complete physical exam. Advised to fast for at least 10 hours before getting labs drawn. May drink water Verbalized understanding and agreed with treatment plan. Orders: Orders Comprehensive Coram. Panel Fast Today Z00.00 - Encounter for general adult medical examination without abnormal findings UA CC w/rflx Micro + Cult Today Z00.00 - Encounter for general adult medical examination without abnormal findings Vitamin D 25-OH Total Today M81.0 - Age-related osteoporosis without current pathological fracture Complete Blood Count Auto Diff Today Z00.00 - Encounter for general adult medical examination without abnormal findings TSH reflex Free T4 Today Z00.00 - Encounter for general adult medical examination without abnormal findings Microalbumin, Random (w Creat) Today Z00.00 - Encounter for general adult medical examination without abnormal findings Coding Level of Care Code Est Pt Level 4 (31404) Complex EM visit Add On G2211 Diagnoses Hypercholesterolemia E78.00 Anxiety with depression F41.8 Laboratory tests ordered as part of a complete physical exam (CPE) Z00.00 Additional Codes JESSICA-7 Assessment Billing - JESSICA-7 Assessment Tool: JESSICA-7 Assessment 03938 ([id number])
[2023-09-07 11:14] VITALS: BP 118/72; PULSE 84; RESP 16; TEMP 36.4; O2SAT 99
== END 2023-09-07 11:49 | disposition home or self-care (01) ==
PROVIDERS: PCP Nurse Practitioner Family; Visit Provider Nurse Practitioner Family
DX: E78.00 Pure hypercholesterolemia, unspecified (principal); F41.8 Other specified anxiety disorders
CPT/HCPCS: 99214; G2211

== ENCOUNTER 2023-11-14 09:42 | Outpatient (REF) | payer MEDICARE, OTHER, SELFPAY ==
[2023-11-14 09:57] LABS: MANUAL DIFF FLAG NO
[2023-11-14 10:10] LABS: Basophils Absolute Auto 0.1 X10*3/uL (0.0-0.2); Basophils Percent Auto 1.2 % (0-2); Eosinophils Absolute Auto 0.4 X10*3/uL (0.0-0.4); Eosinophils Percent Auto 7.4 % (0-4); Hematocrit 40.6 % (37.0-47.0); Hemoglobin 13.3 g/dl (12.0-16.0); Imm Gran Abs Auto 0.01 X10*3/uL (0.00-0.03); Imm Gran Pct Auto 0.2 % (0.0-0.4); Lymphocytes Absolute Auto 1.8 X10*3/uL (1.2-4.9); Lymphocytes Percent Auto 29.8 % (20-40); Mean Corpuscular HGB Conc 32.8 g/dl (31.0-35.0); Mean Corpuscular Hemoglobin 30.8 pg (27.0-33.0); Mean Platelet Volume 9.4 fL (9.4-12.3); Monocytes Absolute Auto 0.6 X10*3/uL (0.1-1.2); Monocytes Percent Auto 9.7 % (2-11); Neutrophils Absolute Auto 3.1 x10*3/uL (2.0-8.3); Neutrophils Percent Auto 51.7 % (45-73); Platelet Count 297 X10*3/uL (160-400); Red Blood Count 4.32 X10*6/uL (4.20-5.50); Red Cell Distribution Width 12.6 % (11.0-16.0)
[2023-11-14 10:35] LABS: Appearance Urine Clear; Color Urine Yellow; Glucose Urine UA Negative (Negative); Leukocyte Esterase Urine Negative (Negative); Nitrite Urine Negative (Negative); Urine Blood Negative (Negative); Urine Ketones Negative (Negative); Urine Protein Negative (Neg-Trace)
[2023-11-14 10:59] LABS: Creatinine Urine 60.93 mg/dL; Microalbumin Urine < 5.0 mg/L
[2023-11-14 11:01] LABS: Alanine Aminotransferase 30 U/L (0-31); Albumin Level 4.3 g/dL (3.5-5.0); Alkaline Phosphatase 64 U/L (39-117); Anion Gap 12 (12-20); Aspartate Amino Transferase 27 U/L (5-31); Bilirubin Total 0.6 mg/dL (0.0-1.0); Blood Urea Nitrogen 11 mg/dL (9-16); Calcium 9.6 mg/dL (8.4-10.2); Carbon Dioxide 26 mmol/L (22-29); Chloride 109 mmol/L (96-108); Estimated Glomerular Filt Rate > 60; Glucose Fasting 106 mg/dL (60-99); Potassium 4.3 mmol/L (3.3-5.1); Sodium 143 mmol/L (135-145); Total Protein 6.7 g/dL (6.5-8.0)
[2023-11-14 11:34] LABS: TSH reflex Free T4 1.48 uIU/mL (0.32-4.0); Vitamin D 25-OH Total 87.2 ng/mL (>30)
== END 2023-11-14 09:43 | disposition home or self-care (01) ==
LOC: HO.LAB 09:42
PROVIDERS: PCP Nurse Practitioner Family; Visit Provider Nurse Practitioner Family
DX: Z00.00 Encounter for general adult medical examination without abnormal findings (principal); M81.0 Age-related osteoporosis without current pathological fracture
CPT/HCPCS: 36415; 80053; 81003; 82306; 82570; 84443; 85025

== ENCOUNTER 2023-11-16 10:39 | Outpatient (AMB) | payer MEDICARE, OTHER, SELFPAY ==
--- NOTE | 2023-11-16 10:43 | A.OFFPC_ITS ---
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: No Is last menstrual period known: No Post menopausal: No Patient : No Allergies Penicillins Allergy (Intermediate, Verified 11/16/23 11:22) Angioedema codeine Adverse Reaction (Verified 11/16/23 11:22) Nausea, Abdominal pain Medication List - Last Reconciled 11/16/23 by Reji Ken CNP albuterol sulfate 90 mcg/actuation 2 puffs inhalation Q4-6H PRN atorvastatin 10 mg PO BEDTIME 30 days bupropion HCl XL (Wellbutrin XL) 150 mg PO QAM cholecalciferol (vitamin D3) 50 mcg PO DAILY clobetasol 0.05% 1 appl topical BID PRN fluoxetine 20 mg PO DAILY fluticasone propion-salmeterol 250-50 mcg/dose (Advair Diskus) 1 ea inhalation BID montelukast 10 mg PO DAILY Tobacco use date assessed: 11/16/23 Fall risk assessment: 2 + Falls in past year Last assessed Fall Risk: 11/16/23 Dental Screening Dental Screen Date: 11/16/23 Did you have a dental visit in the last 12 months?: Yes Did you have a dental problem in the last 6 months where you did not have access to dental care?: No Was dental information given to patient?: Patient has dentist HPI HPI Comments History of Present Illness Details 68-year-old female presents for for an e xtended physical exam She has past medical history significant for anxiety, depression, asthma, high cholesterol, GERD, s/p cataract right eye, s/p epiretinal membrane right eye, osteoporosis, and BCC to her back She admits to taking her medications as prescribed without adverse reactions She reports controlled mood. She started psychotherapy, via telehealth, a month ago to help with organizing her home now that she is retired She notes that she generally make healthy dietary choices. She has been walking routinely. She wakes up frequently at night to urinate or because of her cat Last eye exam two months ago with [facility]. Records not available. She will sign a release for her PCP to obtain records She notes that her last colonoscopy was 4 years ago in [place]: normal. She will sign a release for her PCP to obtain records Last mammogram was in 09/2022: normal. [place] [facility] [place] Last DEXA scan was in 12/2022: osteoporosis L1-L4; osteopenia left femur neck She states that she is up to date on the shingles and PNA vaccines Last tetanus vaccine was more that 5 years ago but within the past 10 years She does not recall her last rec therapist She is followed by [place] [facility] Medical History Skin cancer Depression Asthma GERD (gastroesophageal reflux disease) Hiatal hernia Surgical History History of breast biopsy Hx of colonoscopy Family History (Updated 11/16/23 @ 10:46 by Doris Russ) Other Mental health disorder Social History Housing: House Are you a primary primary care coordinator to a significant other at home: No Do you presently have visiting nurse or other home services: No Alcohol intake: current Alcohol intake frequency: a few times a week Patient Tobacco Use Status: Never used Tobacco e-Cigarette/Vaping Use: Never Used Second Hand Smoke Exposure: No service: No Current occupational status: employed 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 1. Little interest or pleasure in doing things: not at all 2. Feeling down, depressed, or hopeless: not at all 3. Trouble falling or staying asleep, or sleeping too much: several days 4. Feeling tired or having little energy: several days 5. Poor appetite or overeating: not at all 6. Feeling bad about yourself - or that you are a failure or have let yourself or your family down: not at all 7. Trouble concentrating on things, such as reading the newspaper or watching television: not at all 8. Moving or speaking so slowly that other people could have noticed. Or the opposite - being so fidgety or restless that you have been moving around a lot more than usual: not at all 9. Thoughts that you would be better off or of hurting yourself in some way: not at all Total score: 2 Depression Screening Interpretation: Negative Depression Screening Done: Yes 12640 - PHQ-9 Billing: Yes Source: Developed by Drs. Gaurav Trevino, Agueda Neri, Crow Bowling and colleagues, with an educational soila from [employer]. Thrive Questionnaire Date Thrive assessed: 11/16/23 I am a: Patient What is your living situation today?: I have a steady place to live Within the past 12 months, did the food you bought not last and you didn't have the money to get more?: Never true Within the past 12 months, did you worry whether your food would run out before you got money to buy more?: Never true Do you have trouble paying for medicines?: No Do you have trouble getting transportation to medical appointments?: Yes Do you have trouble paying your heating and electricity bill?: No Do you have trouble taking care of your child, family member or friend?: No Do you have trouble with day-to-day activities such as bathing, preparing meals, shopping, managing finances, etc.?: No Are you currently unemployed and looking for a job?: No Are you interested in more education?: Yes Please select the resources that you would like help with: Education Currently or been in a relationship where the following occur: No concerns reported THRIVE Score: 1 AUDIT C Alcohol Use Questionnaire (AUDIT-C) 1. How often do you have a drink containing alcohol?: 2-3 times a week 2. How many drinks containing alcohol do you have on a typical day when you are drinking?: 1 or 2 3. How often do you have six or more drinks on one occasion?: Never Total Score: 3 JESSICA-7 AMB Questionnaire JESSICA-7 Date JESSICA - 7 assessed: 11/16/23 Feeling nervous, anxious, or on edge: 1 = Several days Not being able to stop or control worryin = Not at all Worrying too much about different things: 0 = Not at all Trouble relaxin = Not at all Being so restless that it is hard to sit still: 0 = Not at all Becoming easily annoyed or irritable: 1 = Several days Feeling afraid as if something awful might happen: 0 = Not at all Total JESSICA-7 score (0-4 normal; 5-9 mild; 10-14 moderate; 15-21 severe): 2 Source: Developed by Drs. Gaurav Trevino, Agueda Neri, Crow Bowling and colleagues, with an educational soila from [employer]. JESSICA-7 Assessment Billing JESSICA-7 Assessment Tool: JESSICA-7 Assessment 94184 ACT Questionnaire In the past 4 weeks, how much of the time did your asthma keep you from getting as much done at work, school or at home?: None of the time During the past 4 weeks, how often have you had shortness of breath?: 3-6 times a week During the past 4 weeks, how often did your asthma symptoms wake you up at night or earlier than usual in the morning?: Not at all During the past 4 weeks, how often have you had to use your rescue inhaler or nebulizer medication?: Not at all How would you rate your asthma control during the past 4 weeks?: Well controlled Score: 22 Review of Systems Const Details: Denies chills, Denies fatigue, Denies fever(s), Denies headache(s) and Denies weakness HEENT Denies change in vision, Denies dizziness, Denies headache(s), Denies hearing loss, Denies nasal congestion, Denies sinus pain, Denies sinus pressure and Denies sore throat Card Denies chest pain, Denies lightheadedness, Denies dyspnea and Denies other (palpitations) Resp Denies cough, Denies dyspnea and Denies wheezing GI Denies abdominal pain, Denies melena, Denies hematochezia, Denies change in bowel habits, Denies dyspepsia and Denies nausea Denies hematuria and Denies dysuria Musc Denies abnormal gait, Denies myalgias, Denies arthralgias, Denies numbness and Denies tingling Skin/Breast Denies rash, Denies unusual bruising and Denies wounds Neuro Denies abnormal gait, Denies dizziness, Denies headache(s), Denies memory loss, Denies numbness, Denies Sensory deficit (Neuro), Denies tingling and Denies weak ness Psych Denies anxiety, Denies depression and Denies memory loss Endo Denies cold intolerance, Denies fatigue, Denies heat intolerance, Denies polydipsia and Denies polyuria Ang/Lymph Denies easy bleeding and Denies easy bruising Aller/Immun Denies wheezing Physical exam (Primary Care) Vital Signs: Last Vital Signs Temp 97.5 F 11/16/23 10:47 Pulse 82 11/16/23 10:47 Resp 16 11/16/23 10:47 BP 106/58 L 11/16/23 10:47 Pulse Ox 98 11/16/23 10:47 Oxygen Delivery Method Room Air 11/16/23 10:47 BMI result Body Mass Index 23.9 Tobacco/Smoking Status: Tobacco use Status Tobacco use date assessed 11/16/23 11/16/23 10:50 Patient Tobacco Use Status Never used Tobacco 11/16/23 10:50 e-Cigarette/Vaping Use Never Used 11/16/23 10:50 PHQ-9: PHQ-9 Score PHQ-9: Total score 2 11/17/23 13:24 Depression Screening Interpretation: Negative Thrive Assessment: Date of Thrive Assessment Date Thrive assessed 11/16/23 11/16/23 10:55 Currently or been in a relationship where the following occur: No concerns reported Const Other: General: no acute distress, well developed, alert and awake Nutritional Appearance: well nourished Orientation/consciousness: patient oriented x3 HENMT Head: Yes normocephalic and Yes atraumatic Ears: hearing grossly normal bilaterally and TM's normal bilaterally General nose exam: Normal external nose present and Normal nares present Mouth: Normal oral and palatal mucosa present and moist mucous membranes Teeth and gingiva: dentition normal Throat: Yes oropharynx normal Eyes Pupils: Equal, round and reactive pupils present and Pupil accommodation reflex normal EOM: EOMs intact bilaterally Neck Neck: Yes normal visual inspection, Yes no lymphadenopathy and Yes trachea midline Thyroid: Thyroid normal Carotids: no bruits Lymphatic: no lymphadenopathy noted Chest Chest palpation & inspection: normal inspection of the chest Resp Effort & Inspection: normal respiratory effort Auscultation: clear to auscultation bilaterally Cardio Rate: regular rate Rhythm: regular rhythm Heart sounds: S1 normal heart sound present, S2 normal heart sound present, no gallops, no murmurs and no rubs Bruits: no abdominal aortic bruits and no carotid bruits GI Palpation (GI): No Abdominal aortic bruit present, Soft to palpation, nontender, No hepatosplenomegaly present and No Rebound tenderness present Auscultation: normal bowel sounds General: Yes no CVA tenderness Back/Spine/Pelvis Back: no CVA tenderness Cervical Spine: cervical ROM normal and No Cervical spine tenderness Thoracic/Lumbar Spine: thoraco-lumbar ROM normal, No pain with thoraco-lumbar ROM, No thoracic spinal tenderness and No lumbar spinal tenderness Skin General: warm and dry. Normal skin color. Normal skin turgor Lesions: no lesions Rashes: no rashes Trauma: no lacerations or abrasions Wounds: no wounds Nails: normal Neuro General: patient oriented x3, gait normal and CN's II-XI intact bilaterally Cranial nerves: Yes Equal, round and reactive pupils present Cognition (Neuro): normal cognition Gait exam (Neuro): Normal gait present Motor exam (neuro): 5/5 motor strength present throughout Sensory Exam: No Sensory deficit (Neuro) Deep tendon reflexes (DTR's): Right patellar reflex intensity grade: 2+ and Left patellar reflex intensity grade: 2+ Extrem General: Yes normal to inspection, No edema and No calf tenderness Psych Appearance: grossly normal Affect: normal affect Attitude: cooperative Thought process: Normal thought process present Assessment and Plan Assessment & Plan (1) Normal physical examination, routine: Code(s): Z00.00 - Encounter for general adult medical examination without abnormal findings Plan: No significant physical restrictions or limitations noted Continue current treatment regimen Healthy diet and routine exercise encouraged Follow-up in 3 months for hyperlipidemia, elevated fasting glucose, anxiety, and depression Return sooner with symptoms or concerns Verbalized understanding and agreed with the treatment plan (2) Elevated fasting glucose: Code(s): R73.01 - Impaired fasting glucose Plan: Recent fasting glucose is elevated, 106 Routine exercise and healthy diet, including limiting carbs encouraged Will recheck fasting glucose Advised to fast for 10-12 hours, may drink water only, and get blood work done a few days before next visit Verbalized understanding and agreed with the plan (3) Osteoporosis: Code(s): M81.0 - Age-related osteoporosis without current pathological fracture Qualifiers: Encounter type: initial encounter Osteoporosis type: unspecified Plan: Last DEXA scan in 12/2022 revealed osteoporosis in L1-L4 and osteopenia to let femur neck Declines treatment or endocrinology rheumatology referral She is willing to try visit with therapy for strengthening exercise Referred to physical therapy (4) Anxiety with depression: Code(s): F41.8 - Other specified anxiety disorders Plan: Reports controlled mood. She started psychotherapy via telehealth, a month ago, to help with organizing her home, now that she is retired PHQ-9 and JESSICA-7 scores are normal Continue current treatment regimen Continue follow-up with therapist as planned Return in 3 months or sooner with symptoms or concerns Verbalized understanding and agreed with the treatment plan (5) Hypercholesterolemia: Code(s): E78.00 - Pure hypercholesterolemia, unspecified Plan: Continue current treatment regimen Advised to limit foods high in saturated fat and avoid foods high in trans fat Routine exercise encouraged Advised to fast for 10-12 hours, may drink water only, and get lipid panel blood work done a few days before her next visit Follow-up in 3 months Verbalized understanding and agreed with the plan (6) Pap smear for cervical cancer screening: Code(s): Z12.4 - Encounter for screening for malignant neoplasm of cervix Plan: She does not recall her last rec therapist Referred to [facility] rec therapist Orders: Orders Lipid Panel 3 Months E78.00 - Pure hypercholesterolemia, unspecified PT Evaluation and Treatment Today R73.01 - Impaired fasting glucose Glucose Fasting 3 Months R73.01 - Impaired fasting glucose Referrals 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 Referral Z12.4 - Encounter for screening for malignant neoplasm of cervix Medications: Changed From albuterol sulfate 90 mcg/actuation (ProAir HFA) 2 puffs inhalation Q4-6H PRN 8.5 grams 3RF shortness of breath or wheezing J45.909 - Unspecified asthma, uncomplicated To albuterol sulfate 90 mcg/actuation 2 puffs inhalation Q4-6H PRN 8.5 grams 3RF shortness of breath or wheezing J45.909 - Unspecified asthma, uncomplicated Refilled montelukast 10 mg PO DAILY 90 tabs 1RF J45.909 - Unspecified asthma, uncomplicated atorvastatin 10 mg PO BEDTIME 30 days 30 tabs 3RF Coding Level of Care Code Est Pt Prev Care >65y(68509) Diagnoses Normal physical examination, routine Z00.00 Elevated fasting glucose R73.01 Osteoporosis M81.0 Encounter type: initial encounter Osteoporosis type: unspecified Anxiety with depression F41.8 Hypercholesterolemia E78.00 Pap smear for cervical cancer screening Z12.4 Additional Codes JESSICA-7 Assessment Billing - JESSICA-7 Assessment Tool: JESSICA-7 Assessment 49175 ([id number])
[2023-11-16 10:47] VITALS: BP 106/58; PULSE 82; RESP 16; TEMP 36.4; O2SAT 98; BMI 23.9
== END 2023-11-16 11:24 | disposition home or self-care (01) ==
PROVIDERS: PCP Nurse Practitioner Family; Visit Provider Nurse Practitioner Family
DX: Z00.00 Encounter for general adult medical examination without abnormal findings (principal); R73.01 Impaired fasting glucose; M81.0 Age-related osteoporosis without current pathological fracture; F41.8 Other specified anxiety disorders; E78.00 Pure hypercholesterolemia, unspecified

== ENCOUNTER → 2023-11-16 10:39 | Outpatient (BNVA) | payer MEDICARE, OTHER, SELFPAY | PROVIDERS: PCP Nurse Practitioner Family; Visit Provider Nurse Practitioner Family | DX: Z00.01 Encounter for general adult medical examination with abnormal findings (principal); R73.01 Impaired fasting glucose; M81.0 Age-related osteoporosis without current pathological fracture; F41.8 Other specified anxiety disorders; E78.00 Pure hypercholesterolemia, unspecified | CPT/HCPCS: 96127; 99397 ==

== ENCOUNTER 2024-02-22 09:28 | Emergency (ER) | payer MEDICARE, OTHER, SELFPAY ==
--- NOTE | ~2024-02-22 | XR_ITS ---
EXAMINATION: XR FOOT, RIGHT CLINICAL INFORMATION: Fifth digit pain COMPARISON: None available. TECHNIQUE: AP, lateral, and oblique views of the right foot. FINDINGS: The bones and soft tissues are normal. No fracture. Alignment is anatomic. Joint spaces are maintained. XR/XR foot RT min 3V IMPRESSION: Normal right foot and fifth digit Electronically signed by: Mir Kelly MD 02/22/2024 10:31 AM MOISÉS
[2024-02-22 09:39] VITALS: BP 122/70; PULSE 94; RESP 20; TEMP 36.1; O2SAT 98; BMI 22.8
--- NOTE | 2024-02-22 11:47 | ED.GENADULT ---
HPI - General Adult General Chief complaint: Extremity Problem Stated complaint: ? Broken Toe R Foot Time Seen by Provider: 02/22/24 11:47 Source: patient, RN notes reviewed and old records reviewed Mode of arrival: ambulatory Limitations: no limitations History of Present Illness ED Provider: Renae HPI narrative: 69 year old female presents for evaluation of right foot pain. She reports that she stubbed her small toe on a piece of furniture yesterday. She states that she looked down and her toe was ?crooked. ? She states that she straighten the toe herself She is having bruising to the mid foot and worsening pain with walking No other injuries Related Data Home Medications ?Medication ?Instructions ?Recorded ?Confirmed cholecalciferol (vitamin D3) 50 50 mcg PO DAILY 02/11/23 11/16/23 mcg (2,000 unit) capsule Previous Rx's ?Medication ?Instructions ?Recorded clobetasol 0.05 % topical cream 1 appl topical BID PRN psoriasis 06/19/22 #45 grams bupropion HCl 150 mg 24 hr tablet, 150 mg PO QAM #90 tabs 08/07/23 extended release (Wellbutrin XL) fluoxetine 20 mg capsule 20 mg PO DAILY #90 caps 08/07/23 albuterol sulfate 90 mcg/actuation 2 puff inhalation Q4-6H PRN 11/16/23 aerosol inhaler shortness of breath or wheezing #8.5 grams atorvastatin 10 mg tablet 10 mg PO BEDTIME 30 days #30 tabs 11/16/23 montelukast 10 mg tablet 10 mg PO DAILY #90 tabs 11/16/23 fluticasone 250 mcg-salmeterol 50 1 ea inhalation BID #60 ea 01/26/24 mcg/dose blistr powdr for inhalation (Advair Diskus) Allergies Allergy/AdvReac Type Severity Reaction Status Date / Time Penicillins Allergy Intermediate Angioedema Verified 02/22/24 09:41 codeine AdvReac Nausea, Verified 02/22/24 09:41 Abdominal pain Review of Systems Musculoskeletal: Musculoskeletal: Reports arthralgias, Reports joint swelling and Reports limited range of motion PMFSH Past Medical History Medical History Skin cancer Depression Asthma GERD (gastroesophageal reflux disease) Hiatal hernia Surgical History History of breast biopsy Hx of colonoscopy Family History Family History (Updated 11/16/23 @ 10:46 by Doris Russ MA) Other Mental health disorder Social History Social History Housing: House Are you a primary post acute care registered nurse to a significant other at home: No Do you presently have visiting nurse or other home services: No Alcohol intake: current Alcohol intake frequency: a few times a week Patient Tobacco Use Status: Never used Tobacco e-Cigarette/Vaping Use: Never Used Second Hand Smoke Exposure: No Advance Directives: No Advance Directives Information Provided: Yes service: No Current occupational status: employed 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 Current occupational exposures/hazards: No Cognitive needs: No Hearing needs: No Vision needs: No Physical Exam ED Vital Signs: Vital Signs - 24 hr 02/22/24 09:39 02/22/24 12:09 Temperature 97 F 97 F Pulse Rate 94 94 Respiratory Rate 20 20 Blood Pressure 122/70 122/70 Pulse Oximetry 98 98 Oxygen Delivery Method Room Air Room Air BMI result Body Mass Index 22.8 Const General: healthy appearing, comfortable, no acute distress, alert and awake Nutritional Appearance: well nourished Orientation/consciousness: patient oriented x3 HENMT Head: Yes normocephalic and Yes atraumatic Neck Neck: Yes full ROM Resp Effort & Inspection: normal respiratory effort, able to speak in complete sentences and not labored Skin General skin exam: elasticity normal Neuro General: patient oriented x3 Cranial nerves: Yes Bilaterally intact EOM present Cognition (Neuro): normal cognition Extrem Other: Mild edema to the right 5th toe with ecchymosis extending to the midfoot. This area is tender to palpation. No open wounds. No obvious deformity to the right foot or toe Medical Decision Making Medical Decision Making MDM Narrative: 69-year-old female presents for evaluation of right foot pain. She reports stabbing until yesterday. X-rays are negative. There is no obvious deformity. Plan for discharge with conservative management. She will be given orthopedic follow-up Differential Diagnosis Differential Diagnoses: The differential diagnosis associated with the presentation includes Foot fracture Toe fracture Contusion Dislocation Radiology Impression Discussion of test interpretation with radiology: I have reviewed the radiologist's reading. Radiologist Impression: FINDINGS: The bones and soft tissues are normal. No fracture. Alignment is anatomic. Joint spaces are maintained. XR/XR foot RT min 3V IMPRESSION: Normal right foot and fifth digit Electronically signed by: Mir Kelly MD 02/22/2024 10:31 AM EST Discharge Plan Discharge Clinical Impression: Acute pain of right foot Patient Disposition: Home, Self-Care Instructions: Arthralgia (ED) Additional Instructions: Your x-ray today was normal. Continue to elevate your foot above your heart while resting. I recommend icing the area every 4 hours for 10-15 minutes. Follow-up with orthopedics if your symptoms are not improving Prescriptions: No Action bupropion HCl [Wellbutrin XL] 150 mg tablet extended release 24 hr 150 mg PO QAM Qty: 90 1RF fluoxetine 20 mg capsule 20 mg PO DAILY Qty: 90 1RF fluticasone propion-salmeterol [Advair Diskus] 250-50 mcg/dose blister with device 1 ea inhalation BID Qty: 60 3RF cholecalciferol (vitamin D3) 50 mcg (2,000 unit) capsule 50 mcg PO DAILY clobetasol 0.05 % cream 1 appl topical BID PRN (Reason: psoriasis) Qty: 45 1RF atorvastatin 10 mg tablet 10 mg PO BEDTIME 30 Days Qty: 30 3RF montelukast 10 mg tablet 10 mg PO DAILY Qty: 90 1RF albuterol sulfate 90 mcg/actuation HFA aerosol inhaler 2 puff inhalation Q4-6H PRN (Reason: shortness of breath or wheezing) Qty: 8.5 3RF Referrals: Edgar Bonilla MD [Physician] - (right foot pain) Interventions: ED Discharge Assessment Last Done: 02/22/24 12:09 Discharge Date/Time: 02/22/24 12:10 Print Language: Sinhala
--- OUTSIDE RECORDS SUMMARY | 2024-02-22 11:54 | XMS_ITS | Patient Health Record ---
Author Organization [facility] Address [address] [place] [address] Care Team Providers Care Management Supervisor Name Role Phone GURMEET RUIZ NP Primary Care Provider Gaurav Coffey Unavailable [phone] ALLISON NEGRETE Unavailable Unavailable ALLERGIES Allergen (clinical drug ingredient) Drug/Non Drug Allergy documented on EMR Reaction Allergy Type Onset Date Status Penicillin swellling Drug Allergy Active codeine Codeine gi upset Drug Allergy Active REASON FOR REFERRAL No Information MEDICATIONS Medication SIG (Take, Route, Frequency, Duration) Notes Start Date End Date Status Multivitamin Active ProAir HFA 108 (90 Base) MCG/ACT 1 puff as needed Inhalation every 4 hrs Active buPROPion HCl ER (XL) 150 MG Oral for 30 Active Advair Diskus 250-50 MCG/ACT INHALE 1 PUFF BY MOUTH EVERY 12 HOURS Inhalation for 30 Active Singulair 10 MG 1 tablet Orally Once a day for 30 day(s) Active FLUoxetine HCl 20 MG TAKE 1 CAPSULE BY M OUTH EVERY DAY Oral for 30 Active Vitamin D Active IMMUNIZATIONS Vaccine Route Administration Date Status Comme nts Influenza Unknown 11/27/2021 Administered SOCIAL HISTORY Tobacco Use: Social History Observation Description Date Details (start date - stop date) Never Smoker NA - NA Sex Assigned At : Social History Observation Description Sex Assigned At Unknown Tobacco Use/Smoking Question Answer Notes Patient is a nonsmoker Alcohol Screen Question Answer Notes Did you have a drink contain ing alcohol in the past year? Yes How often did you have a dri nk containing alcohol in the past year? 4 or more times a week (4 points) How many drinks did you have on a typical day when you were drinking in the past year? 1 or 2 drinks (0 point) How often did you have 6 or more drinks on one occasion in the past year? Never (0 point) Points 4 Interpretation Positive PROBLEMS Problem Type ICD Code Onset Dates Problem Status W/U Status Risk SNOMED Code Notes Problem Elevated liver function tests (R94.5) Active confirmed Elevated liver enzymes level (269439750) Problem Gallstones (K80.20) Active confirmed Gallstones (730135073) Problem Elevated liver function tests (R79.89) Active confirmed Elevated liver enzymes level (691495900) Problem GERD (gastroesophag eal reflux disease) (K21.9) Active confirmed Gastroesophagea l reflux disease (981875590) Problem Encounter for screening for malignant neoplasm of colon (Z12.11) Active confirmed Screening for malignant neoplasm of colon (491741608) PLAN OF TREATMENT Pending Test Test Name Order Date LIVER PROFILE 07/24/2021 LIVER PROFILE 12/04/2021 CBC w DIFF 07/24/2021 PROTHROMBIN TIME (PT, INR) 07/24/2021 Insurance Providers Payer Name Payer Address Payer Phone Subscriber Number Group Number Insured Name Patient Relationship to Insured Coverage Start Date Coverage End Date MEDICARE OF [place] [address] [place] [address] [id number] VALENTINO ONEIL Self - patient is the insured [facility] [address] [address] [place] [address] [id number] VALENTINO ONEIL Self - patient is the insured MEDICAL (GENERAL) HISTORY Medical History History ICD Code Denies SD,DM,CVA,renal disease Asthma GERD-told of a hiatal hernia on endoscop y in approximately 2017. Colon polyps reportedly on a colonoscopy at age 51 and a reported negative colonoscopy at about age 61. Elevated LFTs in April and A pril of 2021 due most likely to passage of small common bile duct stones in relation to a gallbladder packed with stones. Her LFTs did normalize and the workup was negative including a negative hepatitis A IgM antibody, negative hepatitis B surface antigen, and a negative hepatitis C antibody. The hepatitis A IgG antibody was positive. Her VICKY and smooth muscle antibodies were negative. She had a normal liver profile on July 25. Gallstones on ultrasound in June of 2021 with a normal bile duct. Surgical History Surgery Date(Month/Year) CCY 07/2021 Dr. Melton 2021
--- OUTSIDE RECORDS SUMMARY | 2024-02-22 11:54 | XMS_ITS ---
Continuity of Care Document (CCD) Created on: February 22, 2024 Jack Rouseen External Reference #: [id number] : [id number] Sex: Female Author Organization [facility] [address] [place] [address] Phone [phone] Care Team Providers Care Dry Heat Cabinet Attendant Name Role Phone Suellen Mendoza CNP Care Team Information Receive r [phone] Problems Active Problems Provider Date Gastroesophageal reflux disease ELÍAS Sen Onset: 02/19/2023 Carcinoma in situ of skin ELÍAS Sen Ons et: 02/19/2023 Hiatal hernia ELÍAS Sen Onset: 2022 H/O: depression ELÍAS Sen Onset: 2022 Osteoporosis ELÍAS Sen Onset: 2022 Asthma ELÍAS Sen Onset: 2022 Social History Type Date Description Comments Sex Unknown Allergies and adverse reactions Active Allergies Criticality Reaction Severity Comments Date Penicillin Unable to assess criticality 02/19/2023 Codeine Unable to assess criticality 02/19/2023 Medical Devices Description No Information Available Encounters Description No Information Available Assessments Description No Information Available Plan of Treatment No Information Available Functional Status Description No Information Available Mental Status Description No Information Available Referrals Description No Information Available
[2024-02-22 12:09] VITALS: BP 122/70; PULSE 94; RESP 20; TEMP 36.1; O2SAT 98
== END 2024-02-22 12:10 | disposition home or self-care (01) ==
PROVIDERS: Emergency Provider Emergency Medicine; PCP Nurse Practitioner Family
DX: M25.571 Pain in right ankle and joints of right foot (principal); M79.671 Pain in right foot
CPT/HCPCS: 73630; 99282; 99283

== ENCOUNTER → 2024-02-22 09:50 | Outpatient (BNV) | payer MEDICARE, OTHER, SELFPAY | PROVIDERS: PCP Nurse Practitioner Family; Visit Provider Radiology Diagnostic Radiology | DX: M79.674 Pain in right toe(s) (principal) | CPT/HCPCS: 73630 ==

== ENCOUNTER 2024-04-26 14:07 | Inpatient (IN) | payer MEDICARE, OTHER, SELFPAY ==
--- NOTE | ~2024-04-26 | XR_ITS ---
CLINICAL HISTORY: Dyspnea on exertion, back pain R O pneumonia, CHF 1 view chest x-ray Comparison: None Findings: No consolidation or effusion. Normal size heart. No acute fracture. IMPRESSION: 1. No acute findings. This document has been electronically signed by: Jayjay Damon MD on 04/27/2024 02:37:06
[2024-04-26 14:28] VITALS: BP 129/66; PULSE 90; RESP 16; TEMP 36.6; O2SAT 100; BMI 25.1
--- NOTE | 2024-04-26 14:29 | ED_ITS ---
HPI - General Adult General Chief complaint: Dizziness Stated complaint: Back pain, dizziness, SOB Time Seen by Provider: 04/27/24 00:39 Source: patient Mode of arrival: ambulatory Limitations: no limitations History of Present Illness ED Provider: Dr. Mark Weeks HPI narrative: 69-year-old female with a history of hyperlipidemia, asthma, GERD, depression, osteoporosis who presents emergency department for evaluation of dyspnea on exertion, jaw pain, back pain, and near-syncope. The patient states that yesterday morning she was wheeling her trash can back to her house. She states that she was walking up a slight incline when she developed pain in her jaw, back, became dyspneic and diaphoresis. She states she felt very cold and clammy and felt like she was going to pass out. She has been having episodes of dyspnea on exertion associated with jaw and back pain over the last 1-2 months but yesterday morning's episode was much more severe and associated with near- syncope. She states she was also been feeling winded after going up 2 flights of stairs in her house. She was also had increased fatigue. Related Data Home Medications ?Medication ?Instructions ?Recorded ?Confirmed cholecalciferol (vitamin D3) 50 50 mcg PO DAILY 02/11/23 11/16/23 mcg (2,000 unit) capsule Previous Rx's ?Medication ?Instructions ?Recorded clobetasol 0.05 % topical cream 1 appl topical BID PRN psoriasis 06/19/22 #45 grams fluoxetine 20 mg capsule 20 mg PO DAILY #90 caps 08/07/23 albuterol sulfate 90 mcg/actuation 2 puff inhalation Q4-6H PRN 11/16/23 aerosol inhaler shortness of breath or wheezing #8.5 grams atorvastatin 10 mg tablet 10 mg PO BEDTIME 30 days #30 tabs 11/16/23 montelukast 10 mg tablet 10 mg PO DAILY #90 tabs 11/16/23 fluticasone 250 mcg-salmeterol 50 1 ea inhalation BID #60 ea 01/26/24 mcg/dose blistr powdr for inhalation (Advair Diskus) bupropion HCl 150 mg 24 hr tablet, 150 mg PO QAM #90 tabs 03/08/24 extended release Allergies Allergy/AdvReac Type Severity Reaction Status Date / Time Penicillins Allergy Intermediate Angioedema Verified 04/26/24 14:34 codeine AdvReac Nausea, Verified 04/26/24 14:34 Abdominal pain Review of Systems 2 Review of Systems: Yes all other systems are reviewed and are negative [facility] Past Medical History [facility] Narrative: Social history: She denies tobacco use. She does drink 2-3 glasses of wine 3 times a week. She denies drug use. Medical History Skin cancer Depression Asthma GERD (gastroesophageal reflux disease) Hiatal hernia Surgical History History of breast biopsy Hx of colonoscopy Family History Family History (Updated 11/16/23 @ 10:46 by Doris Russ MA) Other Mental health disorder Social History Social History Housing: House Are you a primary healthcare economics manager to a significant other at home: No Do you presently have visiting nurse or other home services: No Alcohol intake: current Alcohol intake frequency: a few times a week Alcohol type: wine Patient Tobacco Use Status: Never used Tobacco Smoked in Last 30 Days: No e-Cigarette/Vaping Use: Never Used Second Hand Smoke Exposure: No Use of substances other than those prescribed or required for medical reasons: No Advance Directives: No Advance Directives Information Provided: Yes service: No Current occupational status: employed 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 Exam: General: Awake, alert in no distress Head: Normocephalic, atraumatic EENT: PERRL, Lids normal, sclera normal, conjunctiva normal, nose normal , ears normal, throat without erythema or exudates Neck: Supple, no adenopathy Lung: breath sounds symmetric, no wheezing, rales or rhonchi Chest: symmetric movement, nontender Heart: regular rate and rhythm, normal S1, S2 no murmurs or rubs Abdomen: soft, non-tender, nondistended, normal bowel sounds Back: no vertebral tenderness, no CVAT Extremities: no deformities, moves all extremities symmetrically Neuro: Awake, alert, oriented, normal speech, cranial nerves intact, moves all extremities symmetrically Psych: Pleasant, cooperative Course Course Course Narrative: This is an RME: Additional HPI, ROS, PE not included below will be deferred to primary provider. RME assessment and note performed by: Lorri Bull PA-C This is a [id number], with a hx of hyperlipidemia, asthma, GERD, who presents to the ER with complaints of upper back pain. Reports that when she got to the corner of walking, she felt very faint, had cold sweats, dizzy, and short of breath. She went back to her home, did an EKG on her watch. Plan: Labs, EKG Medications Administered Discontinued Medications Generic Name Dose Route Start Last Admin Trade Name Radha PRN Reason Stop Dose Admin Aspirin 324 mg 04/27/24 01:57 04/27/24 02:32 Aspirin 81 Mg Tab.Chew PO 04/27/24 01:58 324 mg ONCE ONE Administration Heparin Sodium (Porcine) 4,000 unit 04/27/24 02:07 04/27/24 02:33 Heparin Sodium,Porcine 5,000 Unit/Ml Vial IVPUSH 04/27/24 02:08 4,000 unit ONCE ONE Administration Medical Decision Making Medical Decision Making [facility] Narrative: 69-year-old female with a history of hyperlipidemia, asthma, GERD, depression, osteoporosis who presents emergency department for evaluation of dyspnea on exertion, jaw pain, back pain, and near-syncope yesterday morning when she was wheeling her trash can up a slight incline back to her house. Patient was also been experiencing dyspnea on exertion with back pain and jaw pain over the last 1-2 months. She was also had dyspnea going up 2 flights of stairs in her house. Patient was vital signs were normal. Physical exam was unremarkable. Differential diagnosis: ?Includes but is not limited to myocardial infarction, myocardial ischemia, unstable angina, anemia, electrolyte abnormalities Course: My interpretation patient's laboratory evaluation as follows: WBC elevated 11,300. BUN elevated 22 with a normal creatinine of 0.79. BNP was normal at 39. High sensitive troponin x2 was below detectable limits. Patient was 12 EKG was unremarkable. The patient's symptoms especially the dyspnea on exertion, near-syncope in diaphoresis are very concerning for unstable angina. The patient he was given aspirin 324 mg orally. I did discuss the patient's presentation over tiger text with the covering hospitalist, Dr. Rosen and the patient will be admitted for diagnostic workup and treatment. I did discuss the patient's presentation over tiger text with the covering corporate responsibility officer, Dr. Fernández and he states that he will evaluate the patient in the morning. I also discussed patient was presentation over tiger text with the covering hospitalist, Dr. Rosen and the patient will be admitted to the hospitalist service for further treatment. Admission/Observation Consideration of admission/observation: Escalation of care including admission/observation considered (Yes) Consult Healthcare Provider Management of the patient was discussed with: Hospitalist Lab Data MDM Lab Attestation statement: I reviewed the patient's lab results. 04/26/24 15:17 04/26/24 15:17 Labs: Lab Results 04/26/24 04/26/24 04/27/24 Range/Units 15:17 18:32 02:30 WBC 11.3 H (4.8-10.8) X10*3/uL RBC 4.27 (4.20-5.50) X10*6/uL Hgb 13.0 (12.0-16.0) g/dl Hct 40.0 (37.0-47.0) % MCV 93.7 (80.0-98.0) fL MCH 30.4 (27.0-33.0) pg MCHC 32.5 (31.0-35.0) g/dl RDW 12.6 (11.0-16.0) % Plt Count 273 (160-400) X10*3/uL MPV 9.2 L (9.4-12.3) fL Immature Gran % (Auto) 0.4 (0.0-0.4) % Neut % (Auto) 81.1 H (45-73) % Lymph % (Auto) 8.7 L (20-40) % [place] % (Auto) 7.3 (2-11) % Eos % (Auto) 2.0 (0-4) % Baso % (Auto) 0.5 (0-2) % Lymph # (Auto) 1.0 L (1.2-4.9) X10*3/uL [place] # (Auto) 0.8 (0.1-1.2) X10*3/uL Eos # (Auto) 0.2 (0.0-0.4) X10*3/uL Baso # (Auto) 0.1 (0.0-0.2) X10*3/uL Abs Immat Gran (auto) 0.04 H (0.00-0.03) X10*3/uL Absolute Neuts (auto) 9.2 H (2.0-8.3) x10*3/uL Absolute Nucleated RBC 0.000 (0.0-0.012) X10*3/uL Nucleated RBC % (auto) 0.0 (0.0-0.2) /100WBC PT 11.1 (10.9-12.4) SEC INR 1.0 (0.9-1.1) APTT 34.9 (26.0-36.8) SEC aPTT Heparin Protocol 34.7 L (53-77.9) SEC Sodium 140 (135-145) mmol/L Potassium 4.1 (3.3-5.1) mmol/L Chloride 108 (96-108) mmol/L Carbon Dioxide 24 (22-29) mmol/L Anion Gap 12 (12-20) BUN 22 H (9-16) mg/dL Creatinine 0.79 (0.5-1.4) mg/dL Estim Creat Clear Calc 68.7 Estimated GFR > 60 Random Glucose 84 (60-115) mg/dL Calcium 9.6 (8.4-10.2) mg/dL Magnesium 2.1 (1.6-2.6) mg/dL Total Bilirubin 0.5 (0.0-1.0) mg/dL Direct Bilirubin 0.2 (0.0-0.5) mg/dL AST 27 (5-31) U/L ALT 27 (0-31) U/L Alkaline Phosphatase 68 (39-117) U/L Troponin I High Sens < 2.7 < 2.7 (<3.5-17.0) ng/L B-Natriuretic Peptide 39 (<100) pg/mL Total Protein 6.8 (6.5-8.0) g/dL Albumin 4.1 (3.5-5.0) g/dL Independent Interpretation I performed an independent interpretation of an: EKG and Plain X-Ray Interpretation: My independent interpretation patient's 12 EKG done on 04/26/2024 at 15:10 hours is as follows: Normal sinus rhythm rate of 79, normal MT interval, QRS duration QTC interval, no ST segment elevation, no ST segment depression, Q-wave in V1, inverted T-wave in lead 3 and V1, no PACs, no PVCs My interpretation patient's 12 EKG done on 04/27/2024 at 02:44 hours is as follows: Normal sinus rhythm with a rate of 87, normal MT interval, QRS duration QTC interval, no ST segment elevation, no ST segment depression, Q-wave in V1, no change from EKG dated 04/27/2023 at 15:10 hours. My independent interpretation patient's chest x-ray is as follows: No acute disease Radiology Impression Discussion of test interpretation with radiology: I have reviewed the radiologist's reading. Radiologist Impression: 1 view chest x-ray Comparison: None Findings: No consolidation or effusion. Normal size heart. No acute fracture. IMPRESSION: 1. No acute findings. This document has been electronically signed by: Jayjay Damon MD on 04/27/2024 02:37:06 Chronic Conditions Patient?s care impacted by: Other (Hyperlipidemia, asthma) Discharge Plan Discharge Clinical Impression: Unstable angina, Near syncope, Diaphoresis Patient Disposition: Admitted As Inpatient Print Language: Estonian
--- NOTE | 2024-04-26 14:31 | ECG_ITS ---
Test Reason : dizziness Blood Pressure : */* mmHG Vent. Rate : 79 BPM Atrial Rate : 79 BPM P-R Int : 154 ms QRS Dur : 72 ms QT Int : 372 ms P-R-T Axes : 9 59 31 degrees QTcB Int : 426 ms Normal sinus rhythm Normal ECG When compared with ECG of 14-May-2021 03:38, QT has shortened Referred By: Lorri Bull Electronically Signed By: JEREMY SALGADO MD
[2024-04-26 15:22] LABS: MANUAL DIFF FLAG NO
[2024-04-26 15:34] LABS: Basophils Absolute Auto 0.1 X10*3/uL (0.0-0.2); Basophils Percent Auto 0.5 % (0-2); Eosinophils Absolute Auto 0.2 X10*3/uL (0.0-0.4); Imm Gran Abs Auto 0.04 X10*3/uL (0.00-0.03); Imm Gran Pct Auto 0.4 % (0.0-0.4); Lymphocytes Percent Auto 8.7 % (20-40); Mean Corpuscular HGB Conc 32.5 g/dl (31.0-35.0); Mean Corpuscular Hemoglobin 30.4 pg (27.0-33.0); Mean Corpuscular Volume 93.7 fL (80.0-98.0); Mean Platelet Volume 9.2 fL (9.4-12.3); Monocytes Absolute Auto 0.8 X10*3/uL (0.1-1.2); Monocytes Percent Auto 7.3 % (2-11); Neutrophils Absolute Auto 9.2 x10*3/uL (2.0-8.3); Neutrophils Percent Auto 81.1 % (45-73); Platelet Count 273 X10*3/uL (160-400); Red Blood Count 4.27 X10*6/uL (4.20-5.50); Red Cell Distribution Width 12.6 % (11.0-16.0); White Blood Count 11.3 X10*3/uL (4.8-10.8)
[2024-04-26 15:45] LABS: B Type Natriuretic Peptide 39 pg/mL (<100)
[2024-04-26 15:46] LABS: Alanine Aminotransferase 27 U/L (0-31); Albumin Level 4.1 g/dL (3.5-5.0); Anion Gap 12 (12-20); Aspartate Amino Transferase 27 U/L (5-31); Bilirubin Direct 0.2 mg/dL (0.0-0.5); Bilirubin Total 0.5 mg/dL (0.0-1.0); Blood Urea Nitrogen 22 mg/dL (9-16); Calcium 9.6 mg/dL (8.4-10.2); Carbon Dioxide 24 mmol/L (22-29); Chloride 108 mmol/L (96-108); Creatinine Clr Calc Pharmacy 68.7; Estimated Glomerular Filt Rate > 60; Glucose Random 84 mg/dL (60-115); Magnesium 2.1 mg/dL (1.6-2.6); Potassium 4.1 mmol/L (3.3-5.1); Sodium 140 mmol/L (135-145); Total Protein 6.8 g/dL (6.5-8.0)
[2024-04-26 15:47] LABS: Troponin-I High Sensitivity < 2.7 ng/L (<3.5-17.0)
[2024-04-26 15:52] LABS: Alkaline Phosphatase 68 U/L (39-117)
[2024-04-26 15:57] LABS: Prothrombin Time 11.1 SEC (10.9-12.4)
[2024-04-26 18:58] LABS: Troponin-I High Sensitivity < 2.7 ng/L (<3.5-17.0)
[2024-04-26 22:02] VITALS: BP 130/71; PULSE 78; RESP 18; TEMP 37.1; O2SAT 100
--- NOTE | 2024-04-27 | CA_ITS ---
Acquisition Time: 2024-04-27 10:14:58 Total Exercise Time: 00:05:00 Test Indications: CP JAW PAIN Medications: SEE EMAR Protocol: GABRIELA Max HR: 155 BPM 101% of Pred: 152 BPM Max BP: 180/80 mmHG Max Work Load: 4.6 METS Exercise Stress Test with exercise 5 mins of Gabriela Protocol held at Stage 1 due to SOB, achieving 101% MPHR, with reports of severe SOB, denied any chest pain, no jaw pain, no back pain; without any arrythmias, with normotensive response to exercise. Without EKG changes meeting criteria for ischemia. In recovery, breathing returned to baseline. Test reviewed with Dr. Fernández. Referred By: Meet Lehman Electronically Signed By: Meet Lehman
--- OUTSIDE RECORDS SUMMARY | 2024-04-27 00:46 | XMS_ITS | Clinical Summary ---
Author Organization [facility] Address [address] [place] [address] Care Team Providers Care Quotation Checker Name Role Phone Unknown Primary Care Provider [phone] -0000 Allergies Active Allergy Reactions Criticality Noted Date Comments Codeine Unknown/Patient and Family Unable to Define Medium 03/18/2019 Penicillins Unknown/Patient and Family Unable to Define Medium 03/18/2019 Social History Tobacco Use Types Packs/Day Years Used Date Smoking Tobacco: Never Assessed Sex and Gender Information Value Date Recorded Sex Assigned at Not on file Gender Identity Not on file Sexual Orientation Not on file Last Filed Vital Signs Vital Sign Reading Time Taken Comments Blood Pressure 152/83 03/18/2019 3:12 PM EST Pulse 83 03/18/2019 3:12 PM EST Temperature 37 ??C (98.6 ??F) 03/18/2019 1:00 PM EST Respiratory Rate 16 03/18/2019 3:12 PM EST Oxygen Saturation 98% 03/18/2019 3:12 PM EST Inhaled Oxygen Concentration - - Weight - - Height - - Body Mass Index - - Plan of Treatment Health Maintenance Due Date Last Done Comments Hepatitis C Virus Screening 1955 DTaP/Tdap/Td Vaccines (1 - Tdap) 02/08/1975 Mammogram 1996 Colonoscopy 02/08/2001 Pneumococcal Vaccines 50+ (1 of 1 - PCV) 02/08/2006 Zoster (Shingles) Vaccine (1 of 2) 02/08/2006 DXA Bone Density (Females,Ag es 65 and older) 02/08/2021 Influenza Vaccine 09/24/2023 COVID-19 Vaccine ( - 2023-2 5 season) 2023 RSV Vaccine 60 years and old er and Patients (1 - 1-dose 75+ series) 02/08/2031 Hepatitis B Vaccines Aged Out No long er eligible based on patient's age to complete this topic Care Teams Quotation Checker Relationship Specialty Start Date End Date Unknown Unknow Provider Address PCP - General 03/18/19
[2024-04-27 01:18] VITALS: BP 131/80; PULSE 85; RESP 16; TEMP 36.3; O2SAT 100
[2024-04-27 02:28] LABS: Partial Thromboplastin Time 34.9 SEC (26.0-36.8)
[2024-04-27] MEDS: Aspirin 81 MG TAB.CHEW 324 MG PO (02:32)
[2024-04-27] MEDS: Heparin Sodium,Porcine 5,000 UNIT/ML VIAL 4000 UNIT IVPUSH (02:33)
--- NOTE | 2024-04-27 02:36 | ECG_ITS ---
Test Reason : UNSTABLE ANGINA Blood Pressure : */* mmHG Vent. Rate : 87 BPM Atrial Rate : 87 BPM P-R Int : 162 ms QRS Dur : 70 ms QT Int : 376 ms P-R-T Axes : 53 -9 20 degrees QTcB Int : 452 ms Normal sinus rhythm Normal ECG When compared with ECG of 26-Apr-2024 15:10, Questionable change in QRS axis Referred By: Mark Weeks Electronically Signed By: JEREMY SALGADO MD
[2024-04-27 02:46] LABS: PTT Heparin Drip 34.7 SEC (53-77.9)
--- NOTE | 2024-04-27 02:47 | P.HPHOSP_ITS ---
History of Present Illness Date of Service: 04/27/24 Attending physician on admission: Bradly Rosen Chief Complaint: DELACRUZ, near-syncope Patient is a 69-year-old female with a past medical history significant for high cholesterol, moderate persistent asthma, depression and osteoporosis, who presented to the ED due to worsening dyspnea on exertion with associated jaw pain and back pain for the past 1-2 months. She reports yesterday morning she had a near syncopal episode after pushing her walking for a few minutes then pushing her trash barrell up her driveway. She notes she has had dyspnea on exertion and back pain with going up 2 flights of stairs and felt this was related to carrying her laundry basket however noticed today that this may be cardiac related. She reports that her father has a history of a heart attack with stents placed in his 60s or 70s. She denies any nausea, vomiting, abdominal pain, cough, recent illness or current chest pain. This did not feel like an asthma attack, she denies any wheezing. Of note she also mentions that she has been fatigued for the past few months, having to go back to bed early in the morning. Workup in the ED thus far has been reassuring, vital signs stable, physical exam normal, troponins x2 < 2.7, EKG x2 with NSR. Chest x-ray negative. She was given aspirin 324 mg and started on a heparin drip per Cardiology recommendation with cardiology consult in the morning. Review of Systems 2 Constitutional: Constitutional: Denies chills, Denies fever(s) and Denies headache(s) Eyes: Eyes: Denies change in vision and Denies photophobia ENT: Denies headache(s), Denies nasal congestion and Denies sore throat Cardiovascular: Cardiovascular: Reports as per HPI Respiratory: Respiratory: Denies chest congestion, Denies cough and Denies wheezing Gastrointestinal: Gastrointestinal: Denies diarrhea, Denies nausea and Denies vomiting Neurologic: Denies headache(s) Allergic/Immunologic: Allergic/Immunologic: Denies wheezing [facility] Medical History (Updated 04/27/24 @ 03:35 by Devora Lopez PA-C) High cholesterol Skin cancer Depression Asthma GERD (gastroesophageal reflux disease) Hiatal hernia Functional capacity: independent ambulation Family History (Updated 11/16/23 @ 10:46 by Doris Russ MA) Other Mental health disorder Surgical History History of breast biopsy Hx of colonoscopy Social History Housing: House Are you a primary critical care unit nurse to a significant other at home: No Do you presently have visiting nurse or other home services: No Alcohol intake: current Alcohol intake frequency: a few times a week Alcohol type: wine Patient Tobacco Use Status: Never used Tobacco Smoked in Last 30 Days: No e-Cigarette/Vaping Use: Never Used Second Hand Smoke Exposure: No Use of substances other than those prescribed or required for medical reasons: No Advance Directives: No Advance Directives Information Provided: Yes service: No Current occupational status: employed 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 Current occupational exposures/hazards: No Cognitive needs: No Hearing needs: No Vision needs: No Narrative: No smoking, consumes alcohol 2-3 times per week, no drug use Meds Allergies Allergy/AdvReac Type Severity Reaction Status Date / Time Penicillins Allergy Intermediate Angioedema Verified 04/26/24 14:34 codeine AdvReac Nausea, Verified 04/26/24 14:34 Abdominal pain Active Medications: Current Medications Heparin Sodium (Porcine) (Heparin Sodium,Porcine 5,000 Unit/Ml Vial) 3,000 unit 40 unit/kg (3000 unit) IVPUSH PROTOCOL BOLUS PRN; Protocol PRN Reason: 40 unit/kg - Heparin Protocol Heparin Sodium (Porcine) (Heparin Sodium,Porcine 5,000 Unit/Ml Vial) 6,000 unit 80 unit/kg (6000 unit) IVPUSH PROTOCOL BOLUS PRN; Protocol PRN Reason: 80 unit/kg - Heparin Protocol Heparin Sodium/Sodium Chloride (Heparin Sodium,Porcine/1/2ns) 25,000 unit in 250 mls @ 0 mls/hr IVCONT .Q0M JEANNA; Protocol Home Medications ?Medication ?Instructions ?Recorded ?Confirmed ?Last Taken ?Type cholecalciferol (vitamin D3) 50 50 mcg PO DAILY 02/11/23 11/16/23 Unknown History mcg (2,000 unit) capsule Physical Exam 2 Vital Signs and Narrative: Vital Signs: Last Vital Signs Temp 97.4 F 04/27/24 01:18 Pulse 85 04/27/24 01:18 Resp 16 04/27/24 01:18 BP 131/80 04/27/24 01:18 Pulse Ox 100 04/27/24 01:18 O2 Del Method Room Air 04/27/24 01:18 BMI result Body Mass Index 25.1 General: AOx3, no acute distress Resp: CTA bilaterally, no wheezing or crackles CVS: S1, S2, RRR GI: +BS, NT, no distention Skin: Warm, dry Neuro: Cranial nerves II-XII grossly intact bilaterally. Motor grossly intact bilaterally Extremities: No LE edema Psych: Appropriate affect Eyes: Direct Ophthalmoscopy: No photophobia Results Labs 04/26/24 15:17 04/26/24 15:17 Labs: Laboratory Results - last 24 hr 04/26/24 04/27/24 15:17 02:30 MCV 93.7 MCH 30.4 MCHC 32.5 RDW 12.6 Plt Count 273 MPV 9.2 L Immature Gran % (Auto) 0.4 Neut % (Auto) 81.1 H Lymph % (Auto) 8.7 L [place] % (Auto) 7.3 Eos % (Auto) 2.0 Baso % (Auto) 0.5 Lymph # (Auto) 1.0 L [place] # (Auto) 0.8 Eos # (Auto) 0.2 Baso # (Auto) 0.1 Abs Immat Gran (auto) 0.04 H Absolute Neuts (auto) 9.2 H Absolute Nucleated RBC 0.000 Nucleated RBC % (auto) 0.0 PT 11.1 INR 1.0 APTT 34.9 aPTT Heparin Protocol 34.7 L Anion Gap 12 Estim Creat Clear Calc 68.7 Estimated GFR > 60 Random Glucose 84 Calcium 9.6 Magnesium 2.1 Total Bilirubin 0.5 Direct Bilirubin 0.2 AST 27 ALT 27 Alkaline Phosphatase 68 B-Natriuretic Peptide 39 Total Protein 6.8 Albumin 4.1 Assessment and Plan (1) Near syncope: Status: Acute (2) ACS (acute coronary syndrome): Status: Acute Plan Patient is a 69-year-old female with a past medical history significant for high cholesterol, moderate persistent asthma, depression and osteoporosis, who presented to the ED due to worsening dyspnea on exertion with associated jaw pain and back pain for the past 1-2 months. ACS - patient with dyspnea on exertion with diaphoresis, near-syncope and chest pain earlier today while pushing her trash barrel up a slight incline - has been experiencing dyspnea on exertion with associated jaw pain and back pain worsening for the past 1-2 months - EKG with normal sinus rhythm x2 - troponin x2 less than 2.7, repeating again per cardiology recommendation - chest x-ray negative - given aspirin 324 mg and started on heparin drip in ED - WBC 11.3, reactive, no acute infection - vital signs stable - cardiology consult - monitor on telemetry - continue statin - monitor CBC and BMP hypercholesterolemia - continue statin, may need increase, await cardiology recommendation - lipid panel pending Moderate persistent asthma, no acute exacerbation - continue home meds Depression - continue home meds Full code VTE prophylaxis: Heparin drip Patient with acute coronary syndrome, possible unstable angina, requiring admission for at least 2 midnights stay, for further cardiac workup, and monitoring, currently on heparin drip. Quality Stroke Does the patient have a stroke diagnosis?: No VTE Prior VTE?: No VTE Risk Level:: Medical - moderate - high VTE Device Contraindication: Treatment Not Indicated VTE Drug Contraindication: N/A - Med Ordered
[2024-04-27] MEDS: Heparin Sodium,Porcine/1/2NS 25,000 UNIT/250 ML IV.SOLN 8.98 UNIT IVCONT (02:57)
--- NOTE | 2024-04-27 03:11 | PC.NURSE ---
Pt aox4, resting at the bedside. VSS. NSR on monitor. No apparent distress noted. Denies any pain at this time. Heparin drip started at 12u/kg/hr. Pt is tolerating it well. Next PTT-HD due at 0900. Order placed in the MAR.
[2024-04-27 03:20] LABS: Troponin-I High Sensitivity < 2.7 ng/L (<3.5-17.0)
[2024-04-27 03:40] LABS: Cholesterol 186 mg/dL (<200); HDL Cholesterol 67 mg/dL (>40); LDL Cholesterol Calculated 88 mg/dL (<100); Triglycerides 158 mg/dL (<150)
[2024-04-27 06:08] LABS: Anion Gap 12 (12-20); Blood Urea Nitrogen 19 mg/dL (9-16); Calcium 8.9 mg/dL (8.4-10.2); Carbon Dioxide 20 mmol/L (22-29); Chloride 109 mmol/L (96-108); Creatinine Clr Calc Pharmacy 77.5; Estimated Glomerular Filt Rate > 60; Glucose Random 119 mg/dL (60-115); Potassium 3.8 mmol/L (3.3-5.1); Sodium 137 mmol/L (135-145)
[2024-04-27 06:09] LABS: Hematocrit 35.6 % (37.0-47.0); Mean Corpuscular HGB Conc 33.7 g/dl (31.0-35.0); Mean Corpuscular Hemoglobin 30.8 pg (27.0-33.0); Mean Corpuscular Volume 91.5 fL (80.0-98.0); Mean Platelet Volume 9.7 fL (9.4-12.3); Platelet Count 236 X10*3/uL (160-400); Red Blood Count 3.89 X10*6/uL (4.20-5.50); Red Cell Distribution Width 12.6 % (11.0-16.0); White Blood Count 7.1 X10*3/uL (4.8-10.8)
[2024-04-27 07:14] VITALS: BP 127/72; PULSE 83; RESP 19; O2SAT 98
--- NOTE | 2024-04-27 08:08 | PHA.MEDREC ---
Addendum entered by Raffaele Dorantes RPh 04/27/24 08:34: Med rec was reviewed by [facility]. Original Note: Pharmacy Consult ? Medication Reconciliation Pharmacy has completed the medication reconciliation. Spoke with patient to confirm. She confirmed montelukast, LF 08/2023 per claims. She said she took her morning medications yesterday, not bedtime ones.
[2024-04-27 09:14] VITALS: PULSE 86; RESP 19; O2SAT 98
[2024-04-27 09:22] LABS: PTT Heparin Drip 63.2 SEC (53-77.9)
[2024-04-27] MEDS: 0.9 % Sodium Chloride Flush 3 ML SYRINGE IVFLUSH (09:36)
[2024-04-27] MEDS: buPROPion HCl XL 150 MG TAB.ER.24H PO (09:51)
[2024-04-27] MEDS: FLUoxetine HCl 20 MG CAPSULE PO (09:51)
[2024-04-27] MEDS: Montelukast Sodium 10 MG TABLET PO (09:51)
[2024-04-27] MEDS: Multivitamin TABLET 1 TAB PO (09:51)
--- NOTE | 2024-04-27 10:32 | P.CONCA_ITS ---
History of Present Illness History of Present Illness Date of Service: 04/27/24 Requesting physician: Mark Weeks Consult reason: other (Jaw pain and exertional shortness of breath) Chief complaint: DELACRUZ, Back Pain, Jaw Pain Narrative: I was consulted to see Edwar in cardiology consultation today for significant jaw pain and back pain associated shortness of breath minimal exertion yesterday. Patient was a pleasant 69-year-old woman with prior history of hyperlipidemia treated with statin and as per her LDL is well optimized. She has no prior other cardiac issues including no history of coronary artery disease. She was no other risk factors of hypertension or diabetes. She said over the last couple months she has been noticing some exertional shortness of breath as well as back discomfort with exertion but she thought this could be related to asthma and did not pay much attention to it. Yesterday while she was walking she doing minimal exertional she developed sudden-onset shortness of breath along with back discomfort and jaw discomfort associated with diaphoresis and dizziness. She got concerned and came to the emergency room. In the emergency room EKG was nonischemic. Two troponins serially were negative. She was admitted for observation given her concerning symptoms and possibility of unstable angina. She remains symptom-free at current point in time. Blood pressures been stable. Review of Systems 2 Constitutional: Constitutional: Reports no additional constitutional complaints Eyes: Eyes: Reports no additional eye complaints Cardiovascular: Cardiovascular: Reports lightheadedness, Denies Loss of Consciousness, Reports dyspnea on exertion and Reports other (Jaw pain with exertion) Respiratory: Respiratory: Reports dyspnea on exertion Gastrointestinal: Gastrointestinal: Reports no additional gastrointestinal complaints Genitourinary: Genitourinary: Reports no additional female genitourinary complaints Musculoskeletal: Musculoskeletal: Reports no additional musculoskeletal complaints Integumentary/Breasts: Skin/Breast: Reports system reviewed and no additional complaints, except as docu Neurologic: Reports system reviewed and no additional complaints, except as documented Psychiatric: Psychiatric: Reports no additional psychiatric complaints Endocrine: Endocrine: Reports no additional endocrine complaints Hematologic/Lymphatic: Hematologic/Lymphatic: Reports no additional hematologic/lymphatic complaints [facility] Past Medical History Medical History High cholesterol Skin cancer Depression Asthma GERD (gastroesophageal reflux disease) Hiatal hernia Family History Family History Other Mental health disorder Surgical History Surgical History History of breast biopsy Hx of colonoscopy Social History Social History Housing: House Are you a primary resident care spec to a significant other at home: No Do you presently have visiting nurse or other home services: No Alcohol intake: current Alcohol intake frequency: a few times a week Alcohol type: wine Patient Tobacco Use Status: Never used Tobacco Smoked in Last 30 Days: No e-Cigarette/Vaping Use: Never Used Second Hand Smoke Exposure: No Use of substances other than those prescribed or required for medical reasons: No Advance Directives: No Advance Directives Information Provided: Yes service: No Current occupational status: employed 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 Current occupational exposures/hazards: No Cognitive needs: No Hearing needs: No Vision needs: No Meds Allergies Allergy/AdvReac Type Severity Reaction Status Date / Time Penicillins Allergy Intermediate Angioedema Verified 04/26/24 14:34 codeine AdvReac Nausea, Verified 04/26/24 14:34 Abdominal pain Active Medications: Current Medications Acetaminophen (Acetaminophen 325 Mg Tablet) 975 mg PO Q6H PRN PRN Reason: Pain, Mild 1-3,fever,headache Albuterol Sulfate (Albuterol Sulfate 90 Mcg 8 Gm Inhaler) 2 puff INHALE Q4H PRN PRN Reason: shortness of breath or wheezing Atorvastatin Calcium (Atorvastatin Calcium 10 Mg Tablet) 10 mg PO BEDTIME [facility] Bupropion HCl (Bupropion Hcl Xl 150 Mg Tab.Er.24h) 150 mg PO DAILY [facility] Last Admin: 04/27/24 09:51 Dose: 150 mg Calcium Carbonate (Calcium Carbonate 750 Mg Tab.Chew) 750 mg PO Q4H PRN PRN Reason: Heartburn Fluoxetine HCl (Fluoxetine Hcl 20 Mg Capsule) 20 mg PO DAILY [facility] Last Admin: 04/27/24 09:51 Dose: 20 mg Fluticasone/Vilanterol (Fluticasone/Vilanterol 100/25 Blst.W.Dev) 1 puff INHALE RDAILY [facility] Last Admin: 04/27/24 10:28 Dose: Not Given Heparin Sodium (Porcine) (Heparin Sodium,Porcine 5,000 Unit/Ml Vial) 3,000 unit 40 unit/kg (3000 unit) IVPUSH PROTOCOL BOLUS PRN; Protocol PRN Reason: 40 unit/kg - Heparin Protocol Heparin Sodium (Porcine) (Heparin Sodium,Porcine 5,000 Unit/Ml Vial) 6,000 unit 80 unit/kg (6000 unit) IVPUSH PROTOCOL BOLUS PRN; Protocol PRN Reason: 80 unit/kg - Heparin Protocol Heparin Sodium/Sodium Chloride (Heparin Sodium,Porcine/1/2ns) 25,000 unit in 250 mls @ 0 mls/hr IVCONT .Q0M [facility]; Protocol Last Admin: 04/27/24 02:57 Dose: 12 units/kg/hr, 8.98 mls/hr Loratadine (Loratadine 10 Mg Tablet) 10 mg PO BEDTIME [facility] Magnesium Hydroxide (Milk Of Magnesia 30 Ml Oral.Susp) 30 ml PO DAILY PRN PRN Reason: Constipation Melatonin (Melatonin 3 Mg Tablet) 6 mg PO BEDTIME PRN PRN Reason: Insomnia Montelukast Sodium (Montelukast Sodium 10 Mg Tablet) 10 mg PO DAILY [facility] Last Admin: 04/27/24 09:51 Dose: 10 mg Multivitamins/Vitamin C (Multivitamin Tablet) 1 tab PO DAILY [facility] Last Admin: 04/27/24 09:51 Dose: 1 tab Ondansetron HCl (Ondansetron Hcl 4 Mg/2 Ml Vial) 4 mg IVPUSH Q8H PRN PRN Reason: Nausea and Vomiting Sodium Chloride (0.9 % Sodium Chloride Flush 3 Ml Syringe) 3 ml IVFLUSH QSHIFT [facility] Last Admin: 04/27/24 09:36 Dose: 3 ml Home Medications ?Medication ?Instructions ?Recorded ?Confirmed ?Last Taken ?Type bupropion HCl 150 mg 24 hr tablet, 150 mg PO DAILY 04/27/24 04/27/24 04/26/24 History extended release fexofenadine 180 mg tablet 180 mg PO BEDTIME 04/27/24 04/27/24 Unknown History multivitamin 1 tab PO DAILY 04/27/24 04/27/24 04/26/24 History Physical Exam 2 Vital Signs: Vital Signs: Last Vital Signs Temp 97.4 F 04/27/24 01:18 Pulse 86 04/27/24 09:14 Resp 19 04/27/24 09:14 BP 127/72 04/27/24 07:14 Pulse Ox 98 04/27/24 09:14 O2 Del Method Room Air 04/27/24 09:14 BMI result Body Mass Index 25.1 Const: General: cooperative, comfortable, no acute distress, well developed, alert, awake, Physically active and anxious Nutritional Appearance: average body habitus and well nourished Orientation/consciousness: patient oriented x3 Limitations: no limitations HEENT: Head: Yes normocephalic and Yes atraumatic Neck: Neck: Yes trachea midline, Yes supple and Yes no JVD Resp: Effort & Inspection: normal respiratory effort Auscultation: clear to auscultation bilaterally Cardio: Jugular venous distension: no JVD Palpation: normal PMI Rate: r egular rate Rhythm: regular rhythm Heart sounds: S1 normal heart sound present, S2 normal heart sound present, no click, no gallops, no murmurs and no rubs GI: Auscultation: normal bowel sounds Skin: General skin exam: no rashes or lesions noted Neuro: General: patient oriented x3 and no focal motor deficits Extrem: General: Yes no clubbing, cyanosis or edema Psych: Appearance: grossly normal Affect: Anxious affect present Objective Labs and Meds 04/27/24 05:00 04/27/24 05:00 Lab results: Laboratory Results - last 24 hr 04/26/24 04/26/24 04/27/24 15:17 18:32 02:30 WBC 11.3 H RBC 4.27 Hgb 13.0 Hct 40.0 MCV 93.7 MCH 30.4 MCHC 32.5 RDW 12.6 Plt Count 273 MPV 9.2 L Immature Gran % (Auto) 0.4 Neut % (Auto) 81.1 H Lymph % (Auto) 8.[address] [facility] % (Auto) 7.3 Eos % (Auto) 2.0 Baso % (Auto) 0.5 Lymph # (Auto) 1.[address] [facility] # (Auto) 0.8 Eos # (Auto) 0.2 Baso # (Auto) 0.1 Abs Immat Gran (auto) 0.04 H Absolute Neuts (auto) 9.2 H Absolute Nucleated RBC 0.000 Nucleated RBC % (auto) 0.0 PT 11.1 INR 1.0 APTT 34.9 aPTT Heparin Protocol 34.7 L Sodium 140 Potassium 4.1 Chloride 108 Carbon Dioxide 24 Anion Gap 12 BUN 22 H Creatinine 0.79 Estim Creat Clear Calc 68.7 Estimated GFR > 60 Random Glucose 84 Calcium 9.6 Magnesium 2.1 Total Bilirubin 0.5 Direct Bilirubin 0.2 AST 27 ALT 27 Alkaline Phosphatase 68 Troponin I High Sens < 2.7 < 2.7 B-Natriuretic Peptide 39 Total Protein 6.8 Albumin 4.1 Triglycerides Cholesterol LDL Cholesterol, Calc HDL Cholesterol 04/27/24 04/27/24 04/27/24 02:41 05:00 09:02 WBC 7.1 RBC 3.89 L Hgb 12.0 Hct 35.6 L MCV 91.5 MCH 30.8 MCHC 33.7 RDW 12.6 Plt Count 236 MPV 9.7 Immature Gran % (Auto) Neut % (Auto) Lymph % (Auto) [facility] % (Auto) Eos % (Auto) Baso % (Auto) Lymph # (Auto) [facility] # (Auto) Eos # (Auto) Baso # (Auto) Abs Immat Gran (auto) Absolute Neuts (auto) Absolute Nucleated RBC 0.000 Nucleated RBC % (auto) 0.0 PT INR APTT aPTT Heparin Protocol 63.2 D Sodium 137 Potassium 3.8 Chloride 109 H Carbon Dioxide 20 L Anion Gap 12 BUN 19 H Creatinine 0.70 Estim Creat Clear Calc 77.5 Estimated GFR > 60 Random Glucose 119 H Calcium 8.9 D Magnesium Total Bilirubin Direct Bilirubin AST ALT Alkaline Phosphatase Troponin I High Sens < 2.7 B-Natriuretic Peptide Total Protein Albumin Triglycerides 158 H Cholesterol 186 LDL Cholesterol, Calc 88 HDL Cholesterol 67 EKG shows normal sinus rhythm normal EKG Assessment and Plan (1) Unstable angina: Status: Acute Possible unstable angina with her chest pain syndrome yesterday concerning Mibi for myocardial ischemia given her risk factors of age as well as family history as well as hyperlipidemia. However EKG and troponins are reassuring and there is no clear evidence of myocardial injury at this point time. I think it is reasonable to perform a treadmill stress test to evaluate for myocardial ischemia and if this is negative at a good workload then she can be discharged home safely with low risk for cardiovascular events at home. Discussed with her about this. Further treatment can be pursued as outpatient. I will continue her statin and aspirin therapy for now. Stress test has been requested and follow up with the results. Will follow with her after the stress testing. Procedures Date of Service Date of Service: 04/27/24
--- NOTE | 2024-04-27 11:38 | PM.DS ---
DS: Providers Provider Date of Service: 04/27/24 Date of admission: 04/27/24 08:48 Date of discharge: 04/27/24 Primary care physician: Reji Ken CNP Consults: 04/27/24 02:31 Consult to Cardiology Routine Consulting Provider: [facility] Reason for consultation: Back pain, jaw pain, diaphoresis, near-syncope with exertion, unstable nicki Has provider been notified: Yes Attending physician on discharge: Marleen Chery Discharging clinician: Marleen Chery DS: Diagnosis Discharge Diagnosis (1) Unstable angina: Status: Acute DS: Summary Hospital Course Hospital Course: HPI:69-year-old female with a past medical history significant for high cholesterol, moderate persistent asthma, depression and osteoporosis, who presented to the ED due to worsening dyspnea on exertion with associated jaw pain and back pain for the past 1-2 months. She reports yesterday morning she had a near syncopal episode after pushing her walking for a few minutes then pushing her trash barrell up her driveway. She notes she has had dyspnea on exertion and back pain with going up 2 flights of stairs and felt this was related to carrying her laundry basket however noticed today that this may be cardiac related. She reports that her father has a history of a heart attack with stents placed in his 60s or 70s. She denies any nausea, vomiting, abdominal pain, cough, recent illness or current chest pain. This did not feel like an asthma attack, she denies any wheezing. Of note she also mentions that she has been fatigued for the past few months, having to go back to bed early in the morning. Workup in the ED thus far has been reassuring, vital signs stable, physical exam normal, troponins x2 < 2.7, EKG x2 with NSR. Chest x-ray negative. She was given aspirin 324 mg and started on a heparin drip per Cardiology recommendation with cardiology consult in the morning. Hospital course: patient admitted for significant jaw pain and back pain associated shortness of breath minimal exertion: admitted for possible angina ,troponin and ekg seems fine ,cxr negative :patient was started on iv heparin drip seen by cardiology Dr zavala: stress text done negative - patient ruled out for ACS . her symptoms already resolved .likely Pain musculocutaneous type. for further workup cardiology may arrange their own appointment outpatient.added aspirin ,continue statin. follow up with pcp. Above management discussed with the patient in detail length she understand and in agreement with the above plan, time spent 40 minutes . Time Attestation Total time managing care of this patient today: 40 mintues. Discharge Coordination Time (in mins): 40 min Quality: Safe Use of Opioids Does Pt have an Active Cancer Diagnosis on the Problem List?: No Quality: Stroke Does the patient have a stroke diagnosis?: No Physical Exam Vital Signs: Vital Signs: Last Vital Signs Temp 97.4 F 04/27/24 01:18 Pulse 86 04/27/24 09:14 Resp 19 04/27/24 09:14 BP 127/72 04/27/24 07:14 Pulse Ox 98 04/27/24 09:14 O2 Del Method Room Air 04/27/24 09:14 BMI result Body Mass Index 25.1 General: AOx3 Resp: CTA bilaterally. CVS: S1, S2, RRR GI: +BS, NT, no distention Skin: Warm, dry Neuro: nonfocal Extremities: No LE edema DS: Data Data Completed and Pending Labs on day of discharge: Laboratory Results - last 24 hr 04/26/24 04/26/24 04/27/24 15:17 18:32 02:30 WBC 11.3 H RBC 4.27 Hgb 13.0 Hct 40.0 MCV 93.7 MCH 30.4 MCHC 32.5 RDW 12.6 Plt Count 273 MPV 9.2 L Immature Gran % (Auto) 0.4 Neut % (Auto) 81.1 H Lymph % (Auto) 8.7 L Tucker % (Auto) 7.3 Eos % (Auto) 2.0 Baso % (Auto) 0.5 Lymph # (Auto) 1.0 L Tucker # (Auto) 0.8 Eos # (Auto) 0.2 Baso # (Auto) 0.1 Abs Immat Gran (auto) 0.04 H Absolute Neuts (auto) 9.2 H Absolute Nucleated RBC 0.000 Nucleated RBC % (auto) 0.0 PT 11.1 INR 1.0 APTT 34.9 aPTT Heparin Protocol 34.7 L Sodium 140 Potassium 4.1 Chloride 108 Carbon Dioxide 24 Anion Gap 12 BUN 22 H Creatinine 0.79 Estim Creat Clear Calc 68.7 Estimated GFR > 60 Random Glucose 84 Calcium 9.6 Magnesium 2.1 Total Bilirubin 0.5 Direct Bilirubin 0.2 AST 27 ALT 27 Alkaline Phosphatase 68 Troponin I High Sens < 2.7 < 2.7 B-Natriuretic Peptide 39 Total Protein 6.8 Albumin 4.1 Triglycerides Cholesterol LDL Cholesterol, Calc HDL Cholesterol 04/27/24 04/27/24 04/27/24 02:41 05:00 09:02 WBC 7.1 RBC 3.89 L Hgb 12.0 Hct 35.6 L MCV 91.5 MCH 30.8 MCHC 33.7 RDW 12.6 Plt Count 236 MPV 9.7 Immature Gran % (Auto) Neut % (Auto) Lymph % (Auto) Tucker % (Auto) Eos % (Auto) Baso % (Auto) Lymph # (Auto) Tucker # (Auto) Eos # (Auto) Baso # (Auto) Abs Immat Gran (auto) Absolute Neuts (auto) Absolute Nucleated RBC 0.000 Nucleated RBC % (auto) 0.0 PT INR APTT aPTT Heparin Protocol 63.2 D Sodium 137 Potassium 3.8 Chloride 109 H Carbon Dioxide 20 L Anion Gap 12 BUN 19 H Creatinine 0.70 Estim Creat Clear Calc 77.5 Estimated GFR > 60 Random Glucose 119 H Calcium 8.9 D Magnesium Total Bilirubin Direct Bilirubin AST ALT Alkaline Phosphatase Troponin I High Sens < 2.7 B-Natriuretic Peptide Total Protein Albumin Triglycerides 158 H Cholesterol 186 LDL Cholesterol, Calc 88 HDL Cholesterol 67 Discharge Plan Discharge Anticipated Discharge Date/Time: 04/27/24 11:33 Patient Disposition: Home, Self-Care Discharge Diagnosis: acs ruled out Referrals: Reji Ken, [employer]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 [Primary Care Provider] - 1 Week Discharge Medications: New aspirin 81 mg Tablet,Delayed Release (Dr/Ec) 81 mg PO DAILY Qty: 90 0RF Continued fluoxetine 20 mg capsule 20 mg PO DAILY Qty: 90 1RF fluticasone propion-salmeterol [Advair Diskus] 250-50 mcg/dose blister with device 1 ea inhalation BID Qty: 60 3RF multivitamin Tablet 1 tab PO DAILY fexofenadine 180 mg Tablet 180 mg PO BEDTIME bupropion HCl 150 mg tablet extended release 24 hr 150 mg PO DAILY atorvastatin 10 mg tablet 10 mg PO BEDTIME 30 Days Qty: 30 3RF montelukast 10 mg tablet 10 mg PO DAILY Qty: 90 1RF albuterol sulfate 90 mcg/actuation HFA aerosol inhaler 2 puff inhalation Q4-6H PRN (Reason: shortness of breath or wheezing) Qty: 8.5 3RF Discharge Orders: Discharge Order (Routine); Ordered 04/27/24 Ordered By: Marleen Chery Diet: Advance to usual diet Activity on Discharge: As tolerated Stand Alone Forms: Patient Portal Discharge page Print Language: Albanian Care Plan Goals: patient admitted for excersional dyspnea :troponin and ekg seems fine ,cxr negative : seen by cardiology Dr zavala: stress text done negative -started on aspirin ,continue statin. cardiology may arrange their own appointment outpatient. follow up with pcp. Health Concerns: as above. Plan of Treatment: as above. Assessment: as above. Discharge Date/Time: 04/27/24 12:06
--- NOTE | 2024-04-27 13:34 | MHC.CM.PN ---
Pt was discharged prior to being seen by CM.
== END 2024-04-27 12:06 | disposition home or self-care (01) | DRG 552 ==
LOC: HO.ED 04-27 02:39 → HO.EDOVER 04-27 03:28 → HO.IMC 04-27 07:11 → HO.EDOVER 04-27 11:15
PROVIDERS: Nurse Practitioner Family; Physician Assistant Medical; Admitting Provider Physician Assistant; Emergency Provider Emergency Medicine Emergency Medical Services; PCP Nurse Practitioner Family; Visit Provider Internal Medicine
DX: M54.9 Dorsalgia, unspecified (principal); R68.84 Jaw pain; R06.02 Shortness of breath; J45.40 Moderate persistent asthma, uncomplicated; E78.00 Pure hypercholesterolemia, unspecified; F32.A Depression, unspecified; Z79.51 Long term (current) use of inhaled steroids; Z79.899 Other long term (current) drug therapy
CPT/HCPCS: 36415; 71045; 80048; 80061; 80076; 83735; 83880; 84484; 85025; 85027; 85610; 85730; 93005; 93017; 99285; J1644; Q9957

== ENCOUNTER → 2024-04-26 14:31 | Outpatient (BNV) | payer MEDICARE, OTHER, SELFPAY | PROVIDERS: Admitting Provider Physician Assistant; Emergency Provider Emergency Medicine Emergency Medical Services; PCP Nurse Practitioner Family; Visit Provider Internal Medicine Cardiovascular Disease | DX: R42 Dizziness and giddiness (principal) | CPT/HCPCS: 93010 ==

== ENCOUNTER → 2024-04-27 02:07 | Outpatient (BNV) | payer MEDICARE, OTHER, SELFPAY | PROVIDERS: Emergency Provider Emergency Medicine Emergency Medical Services; PCP Nurse Practitioner Family; Visit Provider Radiology Diagnostic Radiology | DX: R06.02 Shortness of breath (principal) | CPT/HCPCS: 71045 ==

== ENCOUNTER → 2024-04-27 03:21 | Outpatient (BNV) | payer MEDICARE, OTHER, SELFPAY | PROVIDERS: Admitting Provider Physician Assistant; Emergency Provider Emergency Medicine Emergency Medical Services; PCP Nurse Practitioner Family; Visit Provider Physician Assistant | DX: R55 Syncope and collapse (principal); I24.9 Acute ischemic heart disease, unspecified | CPT/HCPCS: 99236; 99499 ==

== ENCOUNTER → 2024-04-27 08:48 | Outpatient (BNV) | payer MEDICARE, OTHER, SELFPAY | PROVIDERS: Admitting Provider Physician Assistant; Emergency Provider Emergency Medicine Emergency Medical Services; PCP Nurse Practitioner Family; Visit Provider Internal Medicine Cardiovascular Disease | DX: I20.0 Unstable angina (principal); R06.02 Shortness of breath | CPT/HCPCS: 93010; 93016; 93018; 99222 ==

== ENCOUNTER 2024-04-29 10:41 | Outpatient (AMB) | payer MEDICARE, OTHER, SELFPAY ==
--- NOTE | 2024-04-29 10:44 | A.OFFPC_ITS ---
Vital Signs 04/29/24 10:51 Height 5 ft 8 in Weight 166 lb 8 oz BMI 25.3 BP 124/64 Blood Pressure Location Rt brachial Position Sitting Respiration 16 Pulse 80 Pulse Source Pulse Oximeter Temp 98.2 F Temp Source Oral Pulse Oximetry (%) 98 Oxygen Delivery Method Room Air Intake Visit Reasons: Follow up Intake Note: patient here for follow up on hyperlipidemia, elevated fasting glucose, anxiety, and depression she was also in the ER on and thu of this week. 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 Supervisor Required: No Is last menstrual period known: No Post menopausal: No Patient : No Allergies Penicillins Allergy (Intermediate, Verified 04/29/24 10:49) Angioedema codeine Adverse Reaction (Verified 04/29/24 10:49) Nausea, Abdominal pain Tobacco use date assessed: 04/29/24 Fall risk assessment: 2 + Falls in past year Last assessed Fall Risk: 04/29/24 Dental Screening Dental Screen Date: 04/29/24 Did you have a dental visit in the last 12 months?: Yes Did you have a dental problem in the last 6 months where you did not have access to dental care?: No Was dental information given to patient?: Patient has dentist HPI HPI Comments History of Present Illness Details 69-year-old female presents for hyperlip idemia, elevated glucose, anxiety, and depression follow-up. She admits to taking her medications as prescribed without adverse reactions. She reports controlled depressive symptoms. However, she gets anxious frequently and attributes that to watching the news. She was evaluated for dyspnea on exertion, jaw pain, back pain, and near-syncope at [facility] on 04/26/2024. She had a cardiac workup which was unrevealing. She is scheduled to follow-up with cardiology next month. Her jaw pain and back pain have avoid resolved. However, she continues to experience dyspnea almost every day, even at rest. She attributes for dyspnea to anxiety and asthma. She takes montelukast and Advair daily. However, she has not used her albuterol inhaler in over a year. She notes that she has been consuming sweets recently. She used to walks frequently but has not done so in a while. [facility] Medical History High cholesterol Skin cancer Depression Asthma GERD (gastroesophageal reflux disease) Hiatal hernia Surgical History History of breast biopsy Hx of colonoscopy Family History Other Mental health disorder Social History Housing: House Are you a primary care transitions nurse to a significant other at home: No Do you presently have visiting nurse or other home services: No Alcohol intake: current Alcohol intake frequency: a few times a week Alcohol type: wine Patient Tobacco Use Status: Never used Tobacco e-Cigarette/Vaping Use: Never Used Second Hand Smoke Exposure: No service: No Current occupational status: employed 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 1. Little interest or pleasure in doing things: several days 2. Feeling down, depressed, or hopeless: several days 3. Trouble falling or staying asleep, or sleeping too much: several days 4. Feeling tired or having little energy: several days 5. Poor appetite or overeating: not at all 6. Feeling bad about yourself - or that you are a failure or have let yourself or your family down: not at all 7. Trouble concentrating on things, such as reading the newspaper or watching television: not at all 8. Moving or speaking so slowly that other people could have noticed. Or the opposite - being so fidgety or restless that you have been moving around a lot more than usual: not at all 9. Thoughts that you would be better off or of hurting yourself in some way: not at all Total score: 4 Depression Screening Interpretation: Negative Depression Screening Done: Yes 12959 - PHQ-9 Billing: Yes Source: Developed by Drs. Gaurav Trevino, Agueda Neri, Crow Bowling and colleagues, with an educational soila from [employer]. Thrive Questionnaire Date Thrive assessed: 04/29/24 I am a: Patient What is your living situation today?: I have a steady place to live Within the past 12 months, did the food you bought not last and you didn't have the money to get more?: Never true Within the past 12 months, did you worry whether your food would run out before you got money to buy more?: Never true Do you have trouble paying for medicines?: No Do you have trouble getting transportation to medical appointments?: Yes Do you have trouble paying your heating and electricity bill?: No Do you have trouble taking care of your child, family member or friend?: No Do you have trouble with day-to-day activities such as bathing, preparing meals, shopping, managing finances, etc.?: No Are you currently unemployed and looking for a job?: No Are you interested in more education?: Yes Please select the resources that you would like help with: None Currently or been in a relationship where the following occur: No concerns reported THRIVE Score: 1 AUDIT C Alcohol Use Questionnaire (AUDIT-C) 1. How often do you have a drink containing alcohol?: 2-4 times a month 2. How many drinks containing alcohol do you have on a typical day when you are drinking?: 1 or 2 3. How often do you have six or more drinks on one occasion?: Never Total Score: 2 Score Reviewed/Action Taken: Yes JESSICA-7 AMB Questionnaire JESSICA-7 Date JESSICA - 7 assessed: 04/29/24 Feeling nervous, anxious, or on edge: 1 = Several days Not being able to stop or control worryin = Several days Worrying too much about different things: 1 = Several days Trouble relaxin = Several days Being so restless that it is hard to sit still: 0 = Not at all Becoming easily annoyed or irritable: 1 = Several days Feeling afraid as if something awful might happen: 1 = Several days Total JESSICA-7 score (0-4 normal; 5-9 mild; 10-14 moderate; 15-21 severe): 6 Source: Developed by Drs. Gaurav Trevino, Agueda Neri, Crow Bowling and colleagues, with an educational soila from [employer]. JESSICA-7 Assessment Billing JESSICA-7 Assessment Tool: JESSICA-7 Assessment 71190 Review of Systems Const Details: Const Denies chills, Denies fatigue, Denies fever(s), Denies headache(s) and Denies weakness ENT Denies dizziness and Denies headache(s) Card Denies chest pain, Denies lightheadedness, Reports dyspnea and Denies other (Palpitations) Resp Denies cough, Reports dyspnea, Denies wheezing and Denies other ( shortness of breath) GI Denies abdominal pain, Denies melena, Denies hematochezia, Denies change in bowel habits, Denies dyspepsia and Denies nausea Denies hematuria and Denies dysuria Musc Denies abnormal gait, Denies myalgias, Denies arthralgias, Denies numbness and Denies tingling Skin/Breast Denies rash, Denies unusual bruising and Denies wounds Neuro Denies abnormal gait, Denies dizziness, Denies headache(s), Denies memory loss, Denies numbness, Denies Sensory deficit (Neuro), Denies tingling and Denies weakness Psych Denies anxiety, Denies depression, Denies memory loss Endo Denies cold intolerance, Denies fatigue, Denies heat intolerance, Denies polydipsia and Denies polyuria Aller/Immun Denies wheezing Physical exam (Primary Care) Vital Signs: Last Vital Signs Temp 98.2 F 04/29/24 10:51 Pulse 80 04/29/24 10:51 Resp 16 04/29/24 10:51 BP 124/64 04/29/24 10:51 Pulse Ox 98 04/29/24 10:51 Oxygen Delivery Method Room Air 04/29/24 10:51 BMI result Body Mass Index 25.3 Tobacco/Smoking Status: Tobacco use Status Tobacco use date assessed 04/29/24 04/29/24 10:54 Patient Tobacco Use Status Never used Tobacco 04/29/24 10:47 e-Cigarette/Vaping Use Never Used 04/29/24 10:47 PHQ-9: PHQ-9 Score PHQ-9: Total score 4 04/29/24 10:47 Depression Screening Interpretation: Negative Thrive Assessment: Date of Thrive Assessment Date Thrive assessed 04/29/24 04/29/24 10:47 Currently or been in a relationship where the following occur: No concerns reported Const Other: General: no acute distress and well developed Nutritional Appearance: well nourished Orientation/consciousness: patient oriented x3 HENMT Head: Yes normocephalic and Yes atraumatic Eyes General: appearance normal, both eyes and all related structures Pupils: Equal, round and reactive pupils present EOM: EOMs intact bilaterally Resp Effort & Inspection: normal respiratory effort Auscultation: clear to auscultation bilaterally Cardio Rate: regular rate Rhythm: regular rhythm Heart sounds: S1 normal heart sound present, S2 normal heart sound present, no gallops, no murmurs and no rubs GI Palpation (GI): No Abdominal aortic bruit present, Soft to palpation, nontender, No hepatosplenomegaly present and No Rebound tenderness present Auscultation: normal bowel sounds General: Yes no CVA tenderness Back/Spine/Pelvis Back: no CVA tenderness Cervical Spine: cervical ROM normal and No Cervical spine tenderness Thoracic/Lumbar Spine: thoraco-lumbar ROM normal, No pain with thoraco-lumbar ROM, No thoracic spinal tenderness and No lumbar spinal tenderness Extrem General: Yes normal to inspection, No edema and No calf tenderness Skin General: warm and dry. Normal skin color. Normal skin turgor Neuro General: patient oriented x3, gait normal and no focal neuro deficit Cranial nerves: Yes Equal, round and reactive pupils present Cognition (Neuro): normal cognition Gait exam (Neuro): Normal gait present Sensory Exam: No Sensory deficit (Neuro) Psych Appearance: grossly normal Affect: normal affect Attitude: cooperative Thought process: Normal thought process present Results AMB Hemoglobin A1c AMB Hemoglobin A1c 5.2 % Last Edit by Doris Russ MA on 04/29/24 11:59 Coding Level of Care Code Est Pt Level 4 (99388) Complex EM visit Add On G2211 Diagnoses High cholesterol E78.00 Elevated fasting glucose R73.01 Anxiety with depression F41.8 Dyspnea R06.00 Additional Codes JESSICA-7 Assessment Billing - JESSICA-7 Assessment Tool: JESSICA-7 Assessment 87477 ([id number]) PHQ-9 - 66165 - PHQ-9 Billing: Yes ([id number]) Assessment & Plan Assessment & Plan (1) High cholesterol: Code(s): E78.00 - Pure hypercholesterolemia, unspecified Category: Medical Plan: Recent triglycerides level is slightly elevated, 158. Total cholesterol, LDL, and HDL levels are normal. Encouraged to limit sugar consumption which may influence her cholesterol level. Advised to limit foods high in saturated fat and avoid foods high in trans fat. Routine exercise encouraged. Advised to fast for 10-12 hours, may drink water, and perform lipid panel blood work 2-3 days before next visit. Follow-up in 3 months or sooner with symptoms or concerns. Verbalized understanding and agreed with treatment plan. (2) Elevated fasting glucose: Code(s): R73.01 - Impaired fasting glucose Category: Medical Plan: Recent fasting glucose was slightly elevated, 106. Recent random glucose slightly elevated, 119. A1c today is normal, 5.2%. She has been consuming significant amount of sweets recently. She has not been exercising. Healthy diet and routine exercise encouraged. Verbalized understanding and agreed with the plan. (3) Anxiety with depression: Code(s): F41.8 - Other specified anxiety disorders Category: Medical Plan: Controlled depressive symptoms. However, she gets anxious frequently and attributes it to watching the news. PHQ-9 score is normal. JESSICA-7 score reveals mild anxiety. Continue current treatment regimen. Routine exercise encouraged. Follow-up in 3 months or sooner with symptoms or concerns. Verbalized understanding and agreed with treatment plan. (4) Dyspnea: Code(s): R06.00 - Dyspnea, unspecified Category: Medical Plan She has been experiencing dyspnea almost every day, even at rest. She takes montelukast and Advair daily. She has not used her albuterol inhaler in over a year. Lung sounds clear and equal bilaterally. Dyspnea may be related to anxiety or asthma. Encouraged to continue current treatment regimen for anxiety and depression. Albuterol inhaler refilled; advised to take as prescribed. Continue to take montelukast and Advair as prescribed. Routine exercise encouraged. Follow-up with cardiology as planned for further workup. Return with worsening or new symptoms. Verbalized understanding and agreed with treatment plan. Orders: Orders AMB Hemoglobin A1c Today Z13.9 - Encounter for screening, unspecified Medications: Refilled albuterol sulfate 90 mcg/actuation 2 puffs inhalation Q4-6H PRN 8.5 grams 3RF shortness of breath or wheezing J45.909 - Unspecified asthma, uncomplicated
[2024-04-29 10:51] VITALS: BP 124/64; PULSE 80; RESP 16; TEMP 36.8; O2SAT 98; BMI 25.3
--- OUTSIDE RECORDS SUMMARY | 2024-04-29 12:09 | XMS_ITS | Clinical Summary ---
Author Organization [facility] Address [address] [place] [address] Care Team Providers Care Health Service Worker Name Role Phone Unknown Primary Care Provider [...] age to complete this topic Care Teams Health Service Worker Relationship Specialty Start Date End Date Unknown Unknow Provider Address PCP - General 03/18/19
--- OUTSIDE RECORDS SUMMARY | 2024-04-29 12:09 | XMS_ITS | Continuity of Care Document ---
Author Organization [facility] [address] [place] [address] Phone [phone] Care Team Providers Care Polisher Apprentice Name Role Phone Suellen Mendoza CNP Care Team Information Receive r [phone] Problems Active Problems Provider Date Gastroesophageal reflux [...]
--- OUTSIDE RECORDS SUMMARY | 2024-04-29 12:10 | XMS_ITS | Patient Health Record ---
Author Organization [facility] Address [address] [place] [address] Care Team Providers Care Health Underwriter Name Role Phone GURMEET RUIZ NP Primary Care Provider Gaurav Coffey Unavailable [phone] ALLISON NEGRETE Unavailable Unavailable Allergies Allergen (clinical drug ingredient) Drug/Non Drug Allergy documented on EMR Reaction Allergy Type Onset Date Status Penicillin swellling Drug Allergy Active codeine Codeine gi upset Drug Allergy Active Reason For Referral No Information Medications Medication SIG (Take, Route, Frequency, Duration) Notes [...] Oral for 30 Active Vitamin D Active Immunizations Vaccine Route Administration Date Status Comme nts Influenza Unknown 11/27/2021 Administered Social History Tobacco Use: Social History Observation Description Date Details (start date - stop date) Never Smoker NA - NA Tobacco Use/Smoking Question Answer Notes Patient is [...] Never (0 point) Points 4 Interpretation Positive Section Notes: Nonsmoker, occasional glass of wine Nonsmoker, occasional glass of wine Problems Problem Type SNOMED Code ICD Code Onset Dates Problem Status W/U Status Risk Notes Problem Screening for malignant neoplasm of colon (019049594) Encounter for screening for malignant neoplasm of colon (Z12.11) Active confirmed Problem Elevated liver enzymes level (775025057) Elevated liver function tests (R79.89) Active confirmed Problem Gallstones (189626142) Gallstones (K80.20) Active confirmed Problem Gastroesophageal reflux disease (970947577) GERD (gastroesophag eal reflux disease) (K21.9) Active confirmed Problem Elevated liver enzymes level (452730102) Elevated liver function tests (R94.5) Active confirmed Plan Of Treatment Pending Test Test Name Order Date LIVER PROFILE 12/04/2021 LIVER PROFILE 07/24/2021 CBC w DIFF 07/24/2021 PROTHROMBIN TIME (PT, INR) 07/24/2021 Insurance Providers Payer Name Payer Address Payer Phone Subscriber Number Group Number Insured Name Patient Relationship to Insured Coverage Start Date Coverage End Date MEDICARE OF [place] [address] [place] [address] [id number] VALENTINO ONEIL Self - patient is the insured [facility] [address] [address] [place] [address] [id number] VALENTINO ONEIL Self - patient is the insured Medical (General) History Medical History History ICD Code Denies MD,DM,CVA,renal disease Asthma GERD-told of a hiatal hernia [...]
== END 2024-04-29 12:01 | disposition home or self-care (01) ==
PROVIDERS: PCP Nurse Practitioner Family; Visit Provider Nurse Practitioner Family
DX: E78.00 Pure hypercholesterolemia, unspecified (principal); R73.01 Impaired fasting glucose; F41.8 Other specified anxiety disorders; R06.00 Dyspnea, unspecified; Z13.9 Encounter for screening, unspecified

== ENCOUNTER → 2024-04-29 10:41 | Outpatient (BNVA) | payer MEDICARE, OTHER, SELFPAY | PROVIDERS: PCP Nurse Practitioner Family; Visit Provider Nurse Practitioner Family | DX: E78.00 Pure hypercholesterolemia, unspecified (principal); R73.01 Impaired fasting glucose; F41.8 Other specified anxiety disorders; R06.00 Dyspnea, unspecified | CPT/HCPCS: 83036; 96127; 99212 ==

== ENCOUNTER → 2024-06-27 08:54 | Outpatient (REF) | payer MEDICARE, OTHER, SELFPAY ==
--- NOTE | 2024-06-27 08:56 | CA_ITS ---
Transthoracic Echocardiogram Patient (Last, First, Middle): Christina Rouse M Gender: Female Date of : 1955 Age: 69 Procedure Date: 06/27/2024 Procedure Type: Transthoracic Echocardiogram Location: OP Height: 172. cm Weight: 74.84 kg BSA: 1.88 m2 Heart Rate: 76 bpm BP: 128 / 70 mmHg Air Quality Manager: SPENCER Referring MD: Tom Fernández MD Symptoms: R06.00 - Dyspnea, unspecified Study Quality: Adequate ECG Rhythm: Sinus Conclusions: - The left ventricular systolic function is mildly decreased. The calculated ejection fraction is 52% by biplane method. - No obvious valvular pathology seen on this study. Findings Left Ventricle Normal left ventricular cavity size. There is normal left ventricular wall thickness. The left ventricular systolic function is mildly decreased. The calculated ejection fraction is 52% by biplane method. There is no evidence of regional wall motion abnormalities. Diastolic function is normal for age. Right Ventricle Normal right ventricular cavity size. There is mildly decreased right ventricular systolic function. Aortic Valve There is a normal trileaflet aortic valve. There is no aortic valve stenosis. There is trace (trivial) aortic valve regurgitation. Mitral Valve There is mild anterior mitral leaflet thickening. There is mild mitral annular calcification. There is trace mitral valve regurgitation. There is no mitral valve stenosis. Pulmonic Valve The pulmonic valve is likely normal. Tricuspid Valve There is trace tricuspid valve regurgitation. There is no evidence of pulmonary hypertension. Great Vessels The asc aorta and aortic arch are normal in size. Venous The inferior vena cava is normal in size and collapses greater than 50% with inspiration. Pericardium/Pleural There is a trivial pericardial effusion. Prior Study Comparison No prior study available for comparison. Recommendations, Care & Conclusions No obvious valvular pathology seen on this study. Measurements 2D Linear Measurements IVSd: 0.56 0.6-0.9/0.6-1.0 cm LVIDd: 4.34 3.9-5.3/4.2-5.9 cm LVIDd Index: 2.31 2.4-3.2/2.2-3.1 cm/m2 LVIDs: 3.13 2.0-3.6 cm LVPWd: 0.75 0.7-1.1 cm LA Diam: 3.90 2.7-3.8/3.0-4.0 cm LAIDs Index: 2.07 1.5-2.3 cm/m2 LV Mass: 102.56 67-162/88-224 g LV Mass Index: 54.55 43-95/49-115 g/m2 LVOT Diam: 1.90 3.0+(-)1.3 cm 2D Systolic Function EF 4C: 53.10 >55% EF 2C: 53.50 >55% EF BiP: 51.60 >55% Mitral Valve MV Pk E: 0.76 MV PK A: 1.07 MV Decel Time: 223.00 E/A: 0.70 E'Lateral: 6.74 E'Medial: 5.00 E/E' Med: 15.20 E/E' Lat: 11.20 PHT: 65.00 MVA PHT: 3.38 Decel Garrett: 3.40 Aortic Valve AoV Pk Socrates: 1.17 AoV Mn Socrates: 0.86 AoV VTI: 0.23 AoV Pk Grad: 5.00 Aov Mn Grad: 3.00 MICHELLE Cont.VTI: 2.25 LVOT LVOT Pk Socrates: 0.87 LVOT Mn Socrates: 0.61 LVOT VTI: 0.18 LVOT Pk Grad: 3.00 LVOT Mn Grad: 2.00 LVOT Diam: 1.90 LVOT Area: 2.84 Diastolic Function MV Pk E: 0.76 MV Pk A: 1.07 E/A: 0.70 E'Medial: 5.00 E/E' Med: 15.20 E' Laterial: 6.74 E/E' Lat: 11.20 Right Ventricle TAPSE (mm): 18.20 TVS' Socrates: 8.49 Tricuspid Valve TR Pk Socrates: 2.16 TR Pk Grad: 19.00 RA Press: 3.00 RVSP: 22.00 Great Vessels Aorta Sinus of Valsalva: 2.70 2.0-3.5 cm Ao Asc: 2.80 2.1-3.4 cm Ao Arch: 2.40 Pulmonary Valve PV Pk Socrates: 1.45 Peak PV Grad: 8.00 Updated in Other Vendor System with Status of Final Elias Ledesma MD electronically signed on 06/29/2024 1:09:24 PM with status of Final
--- OUTSIDE RECORDS SUMMARY | 2024-06-27 09:23 | XMS_ITS | Patient Health Record ---
Author Organization [facility] Address [address] [place] [address] Care Team Providers Care Mat Sewer Name Role Phone GURMEET RUIZ NP Primary Care Provider Gaurav Coffey Unavailable [phone] ALLISON NEGRETE Unavailable Unavailable Allergies Allergen (clinical [...] Problem Screening for malignant neoplasm of colon (632873740) Encounter for screening for malignant neoplasm of colon (Z12.11) Active confirmed Problem Elevated liver enzymes level (545257670) Elevated liver function tests (R79.89) Active confirmed Problem Gallstones (404133602) Gallstones (K80.20) Active confirmed Problem Gastroesophageal reflux disease (944731621) GERD (gastroesophag eal reflux disease) (K21.9) Active confirmed Problem Elevated liver enzymes level (559597663) Elevated liver function tests (R94.5) Active confirmed Plan Of Treatment Pending Test Test Name Order Date LIVER PROFILE 12/04/2021 LIVER PROFILE 07/24/2021 CBC w DIFF 07/24/2021 PROTHROMBIN TIME (PT, INR) 07/24/2021 Insurance Providers Payer Name Payer Address Payer Phone Subscriber Number Group Number Insured Name Patient Relationship to Insured Coverage Start Date Coverage End Date MEDICARE OF [place] [address] [place] [address] [id number] VALENTINO ONEIL Self - patient is the insured [facility] [address] [address] [place] [address] [id number] VALENTINO ONEIL Self - patient is the insured Medical (General) History Medical History History ICD Code Denies VA,DM,CVA,renal disease Asthma GERD-told of a hiatal hernia [...]
--- OUTSIDE RECORDS SUMMARY | 2024-06-27 09:23 | XMS_ITS | Continuity of Care Document ---
Author Organization [facility] [address] [place] [address] Phone [phone] Care Team Providers Care Community Arts Centre Manager Name Role Phone Suellen Mendoza CNP Care Team Information Receive r [phone] Problems Active Problems Provider Date Gastroesophageal reflux [...]
--- OUTSIDE RECORDS SUMMARY | 2024-06-27 09:23 | XMS_ITS | Clinical Summary ---
Author Organization [facility] Address [address] [place] [address] Care Team Providers Care Spool Winder Name Role Phone Unknown Primary Care Provider [phone] Allergies Active Allergy Reactions Criticality Noted Date Comments Codeine Unknown/Patient and Family Unable to Define Medium 03/18/2019 Penicillins Unknown/Patient and Family Unable to Define Medium 03/18/2019 Social History Tobacco Use Types Packs/Day Years Used Date Smoking Tobacco: Never Assessed Comments Unknown Sex and Gender Information Value Date Recorded Sex Assigned at Not on file Legal Sex Female 12:56 PM EST Gender Identity Not on file Sexual Orientation [...] Density (Females,Ag es 65 and older) 02/08/2021 COVID-19 Vaccine ( - 2023-2 5 season) 2023 Influenza Vaccine 09/23/2024 RSV Vaccine 60 years and old er and Patients (1 - 1-dose 75+ series) 02/08/2031 Hepatitis B Vaccines Aged Out No long er eligible based on patient's age to complete this topic Insurance [facility] [place]O/LIABILITY) [address] [place] [address] Care Teams Spool Winder Relationship Specialty Start Date End Date Unknown Unknow Provider Address PCP - General 03/18/19
== END ==
LOC: HO.CARD 08:54
PROVIDERS: PCP Nurse Practitioner Family; Visit Provider Internal Medicine Cardiovascular Disease
DX: R06.00 Dyspnea, unspecified (principal); R55 Syncope and collapse; I20.0 Unstable angina; E78.00 Pure hypercholesterolemia, unspecified
CPT/HCPCS: 93306

== ENCOUNTER → 2024-06-27 08:56 | Outpatient (BNV) | payer MEDICARE, OTHER, SELFPAY | PROVIDERS: PCP Nurse Practitioner Family; Visit Provider Internal Medicine | DX: I34.81 Nonrheumatic mitral (valve) annulus calcification (principal); I31.39 Other pericardial effusion (noninflammatory) | CPT/HCPCS: 93306 ==

== ENCOUNTER 2024-07-28 09:31 | Outpatient (AMB) | payer MEDICARE, OTHER, SELFPAY ==
--- NOTE | 2024-07-28 09:34 | A.OFFVIS_ITS ---
Vital Signs 07/28/24 09:35 Height 5 ft 8 in Weight 165 lb 5.547 oz BMI 25.1 BP 120/76 Blood Pressure Location Lt brachial Position Sitting Pulse 90 Intake Visit Reasons: follow up echo calcium score Intake Note: Follow-up after calcium score test feeling good Allergies Penicillins Allergy (Intermediate, Verified 04/29/24 10:49) Angioedema codeine Adverse Reaction (Verified 04/29/24 10:49) Nausea, Abdominal pain Medication List - Last Reconciled 07/28/24 by Tom Fernández MD albuterol sulfate 90 mcg/actuation 2 puffs inhalation Q4-6H PRN aspirin 81 mg PO DAILY atorvastatin 20 mg (2 x 10 mg) PO BEDTIME 30 days bupropion HCl XL 150 mg PO DAILY dextroamphetamine-amphetamine 10 mg (Adderall) 10 mg PO DAILY fexofenadine 180 mg PO BEDTIME fluoxetine 20 mg PO DAILY fluticasone propion-salmeterol 250-50 mcg/dose (Advair Diskus) 1 ea inhalation BID montelukast 10 mg PO DAILY multivitamin 1 tab PO DAILY HPI Comments Details: Christina comes for follow-up. She had an echocardiogram which showed preserved LV ejection fraction. She has no worsening symptoms. Continues to have exertional shortness of breath but says she is not exercising more regularly. A coronary calcium score shows mild coronary calcium in the LAD territory suggestive of coronary atherosclerosis. [facility] Medical History High cholesterol Skin cancer Depression Asthma GERD (gastroesophageal reflux disease) Hiatal hernia Surgical History History of breast biopsy Hx of colonoscopy Family History Other Mental health disorder Social History Housing: House Are you a primary associate director career services to a significant other at home: No Do you presently have visiting nurse or other home services: No Alcohol intake: current Alcohol intake frequency: a few times a week Alcohol type: wine Patient Tobacco Use Status: Never used Tobacco e-Cigarette/Vaping Use: Never Used Second Hand Smoke Exposure: No service: No Current occupational status: employed 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 Current occupational exposures/hazards: No Cognitive needs: No Hearing needs: No Vision needs: No Review of Systems Const Denies chills, Denies fatigue, Denies fever(s), Denies frequent falls, Denies weakness, Denies weight gain and Denies weight loss ENT Denies dizziness Card Denies chest pain, Denies leg edema, Denies lightheadedness, Denies palpitations, Denies dyspnea, Denies dyspnea on exertion, Denies orthopnea and Denies other (loss of consciousness) Resp Denies cough, Denies dyspnea and Denies dyspnea on exertion GI Denies hematochezia and Denies change in stool character Musc Denies abnormal gait, Denies muscle weakness, Denies numbness, Denies radiating pain into limb and Denies tingling Neuro Denies abnormal gait, Denies dizziness, Denies frequent falls, Denies numbness, Denies tingling and Denies weakness Endo Denies fatigue and Denies palpitations Physical Exam Vital Signs: Last Vital Signs Pulse 90 07/28/24 09:35 BP 120/76 07/28/24 09:35 BMI result Body Mass Index 25.1 Const General: cooperative, comfortable, no acute distress, alert, awake and well groomed Nutritional Appearance: average body habitus Orientation/consciousness: patient oriented x3 Limitations: no limitations Neck Neck: Yes trachea midline, Yes supple and Yes no JVD Resp Effort & Inspection: normal respiratory effort Auscultation: clear to auscultation bilaterally Cardio Jugular venous distension: no JVD Palpation: normal PMI Rate: regular rate Rhythm: regular rhythm Heart sounds: S1 normal heart sound present, S2 normal heart sound present, no click, no gallops, no murmurs and no rubs GI Auscultation: normal bowel sounds Skin General skin exam: no rashes or lesions noted Neuro General: patient oriented x3 and no focal motor deficits Extrem General: Yes no clubbing, cyanosis or edema Assessment & Plan Assessment & Plan (1) Elevated coronary artery calcium score: Code(s): R93.1 - Abnormal findings on diagnostic imaging of heart and coronary circulation Category: Medical Plan: Elevated coronary calcium score suggestive of coronary atherosclerosis. At this point time continue medical therapy. Does no indication for aspirin therapy as she has not had any events or interventions that would need aspirin therapy. A coronary calcium score is well below 100. Continue aggressive risk factor modification. Currently on statins atorvastatin 20 mg daily. Advise follow-up lipid panel in near future. Target goal LDL less than 70 mg/dL. Continue aggressive blood pressure control. Encouraged to maintain activity level as tolerated. Will follow up in the clinic in 1 year's time, sooner p.r.n.. Thank you for allowing me to partake in his care Orders: Orders Lipid Panel Today R93.1 - Abnormal findings on diagnostic imaging of heart and coronary circulation CRP High Sensitivity Today E78.5 - Hyperlipidemia, unspecified, R93.1 - Abnormal findings on diagnostic imaging of heart and coronary circulation Coding Level of Care Code Est Pt Level 3 (01573) Complex EM visit Add On G2211 Diagnoses Elevated coronary artery calcium score R93.1
[2024-07-28 09:35] VITALS: BP 120/76; PULSE 90; BMI 25.1
--- OUTSIDE RECORDS SUMMARY | 2024-07-28 10:32 | XMS_ITS | Continuity of Care Document ---
Author Organization [facility] [address] [place] [address] Phone [phone] Care Team Providers Care Funeral Professional Name Role Phone Suellen Mendoza CNP Care Team Information Receive r [phone] Problems Active Problems Provider Date Gastroesophageal reflux [...]
== END 2024-07-28 09:52 | disposition home or self-care (01) ==
LOC: HO.HCS 09:32
PROVIDERS: PCP Nurse Practitioner Family; Visit Provider Internal Medicine Cardiovascular Disease
DX: R93.1 Abnormal findings on diagnostic imaging of heart and coronary circulation (principal)
CPT/HCPCS: 99213; G2211

== ENCOUNTER → 2024-07-28 09:31 | Outpatient (BNVA) | payer MEDICARE, OTHER, SELFPAY | PROVIDERS: PCP Nurse Practitioner Family; Visit Provider Internal Medicine Cardiovascular Disease | DX: R93.1 Abnormal findings on diagnostic imaging of heart and coronary circulation (principal); E78.5 Hyperlipidemia, unspecified | CPT/HCPCS: 99212 ==

== ENCOUNTER 2024-08-29 09:00 | Outpatient (REF) | payer MEDICARE, OTHER, SELFPAY ==
--- OUTSIDE RECORDS SUMMARY | 2024-08-29 09:23 | XMS_ITS | Clinical Summary ---
Author Organization [facility] Address [address] [place] [address] Care Team Providers Care Maintainer Operator Name Role Phone Unknown Primary Care Provider [...] 83 03/18/2019 3:12 PM EST Temperature 37 C (98.6 F) 03/18/2019 1:00 PM EST Respiratory Rate 16 [...] es 65 and older) 02/08/2021 COVID-19 Vaccine (2023-2 5 season) 2023 Influenza Vaccine 09/23/2024 RSV Vaccine 60 years and old er and Patients (1 - 1-dose 75+ series) 02/08/2031 Hepatitis B Vaccines Aged Out No long er eligible based on patient's age to complete this topic Insurance Care Teams Maintainer Operator Relationship Specialty Start Date End Date Unknown Unknow Provider Address PCP - General 03/18/19
--- OUTSIDE RECORDS SUMMARY | 2024-08-29 09:23 | XMS_ITS | Patient Health Record ---
Author Organization [facility] Address [address] [place] [address] Care Team Providers Care Air Value Tester Name Role Phone GURMEET URIZ NP Primary Care Provider Gaurav Coffey Unavailable [phone] ALLISON NEGRETE Unavailable Unavailable Allergies Allergen (clinical [...] Problem Screening for malignant neoplasm of colon (370060327) Encounter for screening for malignant neoplasm of colon (Z12.11) Active confirmed Problem Elevated liver enzymes level (998550255) Elevated liver function tests (R79.89) Active confirmed Problem Gallstones (908393752) Gallstones (K80.20) Active confirmed Problem Gastroesophageal reflux disease (681565368) GERD (gastroesophag eal reflux disease) (K21.9) Active confirmed Problem Elevated liver enzymes level (491634629) Elevated liver function tests (R94.5) Active confirmed Plan Of Treatment Pending Test Test Name Order Date LIVER PROFILE 07/24/2021 LIVER PROFILE 12/04/2021 CBC w DIFF 07/24/2021 PROTHROMBIN TIME (PT, INR) 07/24/2021 Insurance Providers Payer Name Payer Address Payer Phone Subscriber Number Group Number Insured Name Patient Relationship to Insured Coverage Start Date Coverage End Date MED[place]ARE OF [place] [address] [place] [address] [id number] VALENTINO ONEIL Self - patient is the insured [facility] [address] [address] [place] [address] [id number] VALENTINO ONEIL Self - patient is the insured Medical (General) History Medical History History ICD Code Denies [place],DM,CVA,renal disease Asthma GERD-told of a hiatal hernia [...]
[2024-08-29 10:32] LABS: Cholesterol 171 mg/dL (<200); HDL Cholesterol 69 mg/dL (>40); Triglycerides 79 mg/dL (<150)
== END 2024-08-29 09:01 | disposition home or self-care (01) ==
LOC: HO.LAB 09:00
PROVIDERS: Absent Provider Nurse Practitioner Family; PCP Nurse Practitioner Family; Visit Provider Internal Medicine Cardiovascular Disease
DX: E78.00 Pure hypercholesterolemia, unspecified (principal); R93.1 Abnormal findings on diagnostic imaging of heart and coronary circulation; R73.01 Impaired fasting glucose
CPT/HCPCS: 36415; 80061; 82947; 86141

== ENCOUNTER 2024-08-30 11:22 | Outpatient (AMB) | payer MEDICARE, OTHER, SELFPAY ==
--- NOTE | 2024-08-30 11:28 | MHC.PC.OV ---
Vital Signs 08/30/24 11:35 Height 5 ft 8 in Weight 164 lb 8 oz BMI 25.0 BP 99/60 Blood Pressure Location Rt brachial Position Sitting Respiration 16 Pulse 60 Pulse Source Pulse Oximeter Temp 97.9 F Temp Source Oral Pulse Oximetry (%) 100 Oxygen Delivery Method Room Air Intake Visit Reasons: 3 mos HLD, anxiety, depression Intake Note: patient here for 3 month follow up on HLD, anxiety and depression Mine Boss Required: No Is last menstrual period known: No Post menopausal: No Patient : No Allergies Penicillins Allergy (Intermediate, Verified 08/30/24 11:53) Angioedema codeine Adverse Reaction (Verified 08/30/24 11:53) Nausea, Abdominal pain Medication List - Last Reconciled 08/30/24 by Reji Ken CNP albuterol sulfate 90 mcg/actuation 2 puffs inhalation Q4-6H PRN atorvastatin 40 mg PO BEDTIME 90 days bupropion HCl XL 150 mg PO DAILY dextroamphetamine-amphetamine 10 mg (Adderall) 20 mg PO DAILY fexofenadine 180 mg PO BEDTIME fluoxetine 20 mg PO DAILY fluticasone propion-salmeterol 250-50 mcg/dose (Advair Diskus) 1 ea inhalation BID montelukast 10 mg PO DAILY multivitamin 1 tab PO DAILY Tobacco use date assessed: 08/30/24 Fall risk assessment: 2 + Falls in past year Last assessed Fall Risk: 08/30/24 Dental Screening Dental Screen Date: 08/30/24 Did you have a dental visit in the last 12 months?: Yes Did you have a dental problem in the last 6 months where you did not have access to dental care?: No Was dental information given to patient?: Patient has dentist HPI HPI Comments History of Present Illness Details 69-year-old female presents for hyperlipidemia, anxiety, and depression follow-up. She admits to taking her medications as prescribed without adverse reactions. She notes that her mood is good. She notes that her anxiety and depressive symptoms have been well controlled. She started seeing a psychiatrist virtually 2-3 months ago. She was diagnosed with ADHD and prescribed Adderall 20mg daily. Her field interviewer increased her atorvastatin to 40 mg daily today; LDL goal is less than 70. She offers no complaints and denies acute symptoms at this time. REPLACED BY [facility] Medical History High cholesterol Skin cancer Depression Asthma GERD (gastroesophageal reflux disease) Hiatal hernia Surgical History History of breast biopsy Hx of colonoscopy Family History Other Mental health disorder Social History Housing: House Are you a primary healthcare sales representative to a significant other at home: No Do you presently have visiting nurse or other home services: No Alcohol intake: current Alcohol intake frequency: a few times a week Alcohol type: wine Patient Tobacco Use Status: Never used Tobacco e-Cigarette/Vaping Use: Never Used Second Hand Smoke Exposure: No service: No Current occupational status: employed 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 1. Little interest or pleasure in doing things: not at all 2. Feeling down, depressed, or hopeless: not at all 3. Trouble falling or staying asleep, or sleeping too much: several days 4. Feeling tired or having little energy: several days 5. Poor appetite or overeating: not at all 6. Feeling bad about yourself - or that you are a failure or have let yourself or your family down: not at all 7. Trouble concentrating on things, such as reading the newspaper or watching television: not at all 8. Moving or speaking so slowly that other people could have noticed. Or the opposite - being so fidgety or restless that you have been moving around a lot more than usual: not at all 9. Thoughts that you would be better off or of hurting yourself in some way: not at all Total score: 2 Depression Screening Interpretation: Negative Depression Screening Done: Yes 79521 - PHQ-9 Billing: Yes Source: Developed by Drs. Gaurav Trevino, Agueda Neri, Crow Bowling and colleagues, with an educational soila from [email or web address]. Thrive Questionnaire Date Thrive assessed: 04/29/24 I am a: Patient What is your living situation today?: I have a steady place to live Within the past 12 months, did the food you bought not last and you didn't have the money to get more?: Never true Within the past 12 months, did you worry whether your food would run out before you got money to buy more?: Never true Do you have trouble paying for medicines?: No Do you have trouble getting transportation to medical appointments?: Yes Do you have trouble paying your heating and electricity bill?: No Do you have trouble taking care of your child, family member or friend?: No Do you have trouble with day-to-day activities such as bathing, preparing meals, shopping, managing finances, etc.?: No Are you currently unemployed and looking for a job?: No Are you interested in more education?: Yes Please select the resources that you would like help with: None Currently or been in a relationship where the following occur: No concerns reported THRIVE Score: 1 JESSICA-7 AMB Questionnaire JESSICA-7 Date JESSICA - 7 assessed: 08/30/24 Feeling nervous, anxious, or on edge: 1 = Several days Not being able to stop or control worryin = Several days Worrying too much about different things: 1 = Several days Trouble relaxin = Several days Being so restless that it is hard to sit still: 0 = Not at all Becoming easily annoyed or irritable: 1 = Several days Feeling afraid as if something awful might happen: 1 = Several days Total JESSICA-7 score (0-4 normal; 5-9 mild; 10-14 moderate; 15-21 severe): 6 Source: Developed by Drs. Gaurav Trevino, Agueda Neri, Crow Bowling and colleagues, with an educational soila from [email or web address]. JESSICA-7 Assessment Billing JESSICA-7 Assessment Tool: JESSICA-7 Assessment 05271 Review of Systems Const Details: Const Denies chills, Denies fatigue, Denies fever(s), Denies headache(s) and Denies weakness ENT Denies dizziness and Denies headache(s) Card Denies chest pain, Denies lightheadedness, Denies dyspnea and Denies other (Palpitations) Resp Denies cough, Denies dyspnea, Denies wheezing and Denies other ( shortness of breath) GI Denies abdominal pain, Denies melena, Denies hematochezia, Denies change in bowel habits, Denies dyspepsia and Denies nausea Denies hematuria and Denies dysuria Musc Denies abnormal gait, Denies myalgias, Denies arthralgias, Denies numbness and Denies tingling Skin/Breast Denies rash, Denies unusual bruising and Denies wounds Neuro Denies abnormal gait, Denies dizziness, Denies headache(s), Denies memory loss, Denies numbness, Denies Sensory deficit (Neuro), Denies tingling and Denies weakness Psych Denies anxiety, Denies depression, Denies memory loss Endo Denies cold intolerance, Denies fatigue, Denies heat intolerance, Denies polydipsia and Denies polyuria Aller/Immun Denies wheezing Physical exam (Primary Care) Vital Signs: Last Vital Signs Temp 97.9 F 08/30/24 11:35 Pulse 60 08/30/24 11:35 Resp 16 08/30/24 11:35 BP 99/60 08/30/24 11:35 Pulse Ox 100 08/30/24 11:35 Oxygen Delivery Method Room Air 08/30/24 11:35 BMI result Body Mass Index 25.0 Tobacco/Smoking Status: Tobacco use Status Tobacco use date assessed 08/30/24 08/30/24 11:41 Patient Tobacco Use Status Never used Tobacco 08/30/24 11:31 e-Cigarette/Vaping Use Never Used 08/30/24 11:31 PHQ-9: PHQ-9 Score PHQ-9: Total score 2 08/30/24 11:41 Depression Screening Interpretation: Negative Thrive Assessment: Date of Thrive Assessment Date Thrive assessed 04/29/24 08/30/24 11:31 Currently or been in a relationship where the following occur: No concerns reported Const Other: General: no acute distress and well developed Nutritional Appearance: well nourished Orientation/consciousness: patient oriented x3 HENMT Head: Yes normocephalic and Yes atraumatic Eyes General: appearance normal, both eyes and all related structures Pupils: Equal, round and reactive pupils present EOM: EOMs intact bilaterally Resp Effort & Inspection: normal respiratory effort Auscultation: clear to auscultation bilaterally Cardio Rate: regular rate Rhythm: regular rhythm Heart sounds: S1 normal heart sound present, S2 normal heart sound present, no gallops, no murmurs and no rubs GI Palpation (GI): No Abdominal aortic bruit present, Soft to palpation, nontender, No hepatosplenomegaly present and No Rebound tenderness present Auscultation: normal bowel sounds General: Yes no CVA tenderness Back/Spine/Pelvis Back: no CVA tenderness Cervical Spine: cervical ROM normal and No Cervical spine tenderness Thoracic/Lumbar Spine: thoraco-lumbar ROM normal, No pain with thoraco-lumbar ROM, No thoracic spinal tenderness and No lumbar spinal tenderness Extrem General: Yes normal to inspection, No edema and No calf tenderness Skin General: warm and dry. Normal skin color. Normal skin turgor Neuro General: patient oriented x3, gait normal and no focal neuro deficit Cranial nerves: Yes Equal, round and reactive pupils present Cognition (Neuro): normal cognition Gait exam (Neuro): Normal gait present Sensory Exam: No Sensory deficit (Neuro) Psych Appearance: grossly normal Affect: normal affect Attitude: cooperative Thought process: Normal thought process present Coding Level of Care Code Est Pt Level 3 (54058) Diagnoses High cholesterol E78.00 Anxiety with depression F41.8 ADHD F90.9 Additional Codes JESSICA-7 Assessment Billing - JESSICA-7 Assessment Tool: JESSICA-7 Assessment 85144 ([id number]) PHQ-9 - 96489 - PHQ-9 Billing: Yes ([id number]) Assessment & Plan Assessment & Plan (1) High cholesterol: Code(s): E78.00 - Pure hypercholesterolemia, unspecified Category: Medical Plan: Recent triglycerides, total cholesterol, and HDL levels are normal, 79, 171, and 69 respectively. LDL level is slightly elevated, 87. Her field interviewer increased her atorvastatin to 40 mg daily today; LDL goal is less than 70. Continue current treatment regimen. Advised to limit foods high in saturated fat and avoid foods high in trans fat. Routine exercise encouraged. Fast for 10-12 hours, may drink water, perform lipid panel blood work 2-3 days before next visit. Follow-up for an extended physical exam and hyperlipidemia in 3 months. Return sooner with symptoms or concerns. Verbalized understanding and agreed with treatment plan. (2) Anxiety with depression: Code(s): F41.8 - Other specified anxiety disorders Category: Medical Plan: She notes that her mood is good. She notes that her anxiety and depressive symptoms have been well controlled. She started seeing a psychiatrist virtually 2-3 months ago. She was diagnosed with ADHD and prescribed Adderall 20mg daily. JESSICA-7 score revealed mild anxiety. PHQ-9 score is normal. Continue current treatment regimen. Routine exercise encouraged. Follow-up with psychiatrist as planned. Verbalized understanding and agreed with the treatment plan. (3) ADHD: Code(s): F90.9 - Attention-deficit hyperactivity disorder, unspecified type Category: Medical Plan: Plan as above. Orders: Orders Lipid Panel 3 Months E78.00 - Pure hypercholesterolemia, unspecified
[2024-08-30 11:35] VITALS: BP 99/60; PULSE 60; RESP 16; TEMP 36.6; O2SAT 100; BMI 25.0
--- OUTSIDE RECORDS SUMMARY | 2024-08-30 12:30 | XMS_ITS | Clinical Summary ---
Author Organization [facility] Address [address] [place] [address] Care Team Providers Care Eyelet Punch Operator Name Role Phone Unknown Primary Care [...] to complete this topic Insurance Care Teams Eyelet Punch Operator Relationship Specialty Start Date End Date Unknown Unknow Provider Address PCP - General 03/18/19
--- OUTSIDE RECORDS SUMMARY | 2024-08-30 12:30 | XMS_ITS | Continuity of Care Document ---
Author Organization [facility] [address] [place] [address] Phone [phone] Care Team Providers Care Upholstery Estimator Name Role Phone Suellen Mendoza CNP Care Team Information Receive r [phone] Problems Active Problems Provider Date Gastroesophageal reflux disease ELÍAS Sen Onset: 02/19/2023 Carcinoma in situ of skin ELÍAS Sen Ons et: 02/19/2023 Hiatal hernia ELÍAS Sen Onset: 2022 H/O: depression ELÍAS Sen Onset: 2022 Osteoporosis ELÍAS Sen Onset: 2022 Asthma ELÍAS Sen Onset: 2022 Social History Type Date Description Comments Sex Female Sex Unknown Allergies and adverse reactions Active [...]
--- OUTSIDE RECORDS SUMMARY | 2024-08-30 12:30 | XMS_ITS | Patient Health Record ---
Author Organization [facility] Address [address] [place] [address] Care Team Providers Care Chief Petroleum Engineer Name Role Phone GURMEET RUIZ NP Primary Care Provider Gaurav Coffey Unavailable [phone] ALLISON NEGRETE Unavailable Unavailable Allergies Allergen (clinical [...] Problem Screening for malignant neoplasm of colon (692851938) Encounter for screening for malignant neoplasm of colon (Z12.11) Active confirmed Problem Elevated liver enzymes level (103639418) Elevated liver function tests (R79.89) Active confirmed Problem Gallstones (397902066) Gallstones (K80.20) Active confirmed Problem Gastroesophageal reflux disease (546052451) GERD (gastroesophag eal reflux disease) (K21.9) Active confirmed Problem Elevated liver enzymes level (770824130) Elevated liver function tests (R94.5) Active confirmed Plan Of Treatment Pending Test Test Name Order Date LIVER PROFILE 12/04/2021 LIVER PROFILE 07/24/2021 CBC w DIFF 07/24/2021 PROTHROMBIN TIME (PT, INR) 07/24/2021 Insurance Providers Payer Name Payer Address Payer Phone Subscriber Number Group Number Insured Name Patient Relationship to Insured Coverage Start Date Coverage End Date MEDICARE OF [place] [address] [place] [address] [id number] VALENTINO ONEIL Self - patient is the insured [facility] [address] [address] [place] [address] [id number] VALENTINO ONEIL Self - patient is the insured Medical (General) History Medical History History ICD Code Denies OK,DM,CVA,renal disease Asthma GERD-told of a hiatal hernia [...]
== END 2024-08-30 12:06 | disposition home or self-care (01) ==
LOC: HO.HMCFM 11:28
PROVIDERS: PCP Nurse Practitioner Family; Visit Provider Nurse Practitioner Family
DX: E78.00 Pure hypercholesterolemia, unspecified (principal); F41.8 Other specified anxiety disorders; F90.9 Attention-deficit hyperactivity disorder, unspecified type

== ENCOUNTER → 2024-08-30 11:22 | Outpatient (BNVA) | payer MEDICARE, OTHER, SELFPAY | PROVIDERS: PCP Nurse Practitioner Family; Visit Provider Nurse Practitioner Family | DX: E78.00 Pure hypercholesterolemia, unspecified (principal); F41.8 Other specified anxiety disorders; F90.9 Attention-deficit hyperactivity disorder, unspecified type | CPT/HCPCS: 96127; 99212 ==

== ENCOUNTER 2024-09-20 08:58 | Outpatient (AMB) | payer MEDICARE, OTHER, SELFPAY ==
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
[2024-09-20 09:01] VITALS: BP 100/58; PULSE 98; O2SAT 100; BMI 24.8
--- OUTSIDE RECORDS SUMMARY | 2024-09-20 09:17 | XMS_ITS | Continuity of Care Document ---
Author Organization [facility] [address] [place] [address] Phone [phone] Care Team Providers Care Cardiovascular Disease Specialist Name Role Phone Suellen Mendoza CNP Care Team Information Receive r [phone] Problems Active Problems Provider Date Gastroesophageal reflux [...]
--- OUTSIDE RECORDS SUMMARY | 2024-09-20 09:17 | XMS_ITS | Clinical Summary ---
Author Organization [facility] Address [address] [place] [address] Care Team Providers Care Pipe Fitter Marine Name Role Phone Unknown Primary Care Provider [...] patient's age to complete this topic Insurance [address] [place] [id number] [facility] (AUTO/LIABILITY) Care Teams Pipe Fitter Marine Relationship Specialty Start Date End Date Unknown Unknow Provider Address PCP - General 03/18/19
--- OUTSIDE RECORDS SUMMARY | 2024-09-20 09:17 | XMS_ITS | Clinical Summary ---
Author Organization [facility] Address [address] [place] [address] Phone Care Team Providers Care Flap Lining Binder Name Role Phone Pcp, Unknown Primary Care Provider Unavailabl e Allergies Active Allergy Reactions Criticality Noted Date Comments Codeine Cramps,GI Upset,Naus ea And Vomiting,Unknown High 12/31/2016 Penicillins Swelling,Unknown Medium 07/14/2014 Medications aspirin 81 MG EC tablet Take 1 tablet by mouth every morning. 5 Active atorvastatin (LIPITOR) 10 MG tablet 4 Active buPROPion (WELLBUTRIN XL) 150 MG ER 24 hr tablet Take 150 mg by mouth every morning. Active FLUoxetine (PROZAC) 20 MG tablet Take 20 mg by mouth. Active ADVAIR DISKUS 250-50 mcg/dose DISKUS 0 Active montelukast (SINGULAIR) 10 mg tablet 8 Active omeprazole (PRILOSEC) 20 MG capsule Take 20 mg by mouth. Active albuterol 90 mcg/actuation inhaler INHALE 2 PUFFS BY MOUTH EVERY 4 TO 6 HOURS NEEDED FOR SHORTNESS OF BREATH OR WHEEZING 5 Active clobetasol (TEMOVATE) 0.05 % ointmentIndicat ions:Lichen sclerosus Apply 0.5g daily for 14 days then twice weekly 30 g 1 5 Active estradioL (ESTRACE) 0.01 % (0.1 mg/gram) vaginal creamIndication s:Vulvar atrophy Apply 1g to vulva twice weekly 42.5 g 1 04/15/202 5 Active Active Problems Problem Noted Date Diagnosed Date Lichen sclerosus 06/07/2024 Assessment & Plan (06/07/2024 10:35 AM EDT): LS is a chronic skin condition with need for regular treatment plan and follow up. I reviewed the importance of regular maintenance topical steroid use to prevent symptoms and further scarring. Plan going forward: 1) clobetasol daily x14 days then twice weekly 2) estrace twice weekly (start this after the 2 week clobetasol course) 3) regular use of moisture barrier (coconut oil, vaseline, Good Clean Love, etc) 4) vaginal dilators - insert lubricated dilator for 15 minutes daily, reviewed how to obtain dilators Family History Medical History Relation Comments Dementia Father Dementia Mother Relation Status Comments Father Mother Social History Tobacco Use Types Packs/Day Years Used Date Smoking Tobacco: Never Smokeless Tobacco: Never Alcohol Use Standard Drinks/Week Comments Yes 0 (1 standard drink = 0.6 oz pur e alcohol) 2- 3 times weekly with meals Education Answer Date Recorded Are you interested in more education? Not on ji e 05/03/2024 Are you concerned about learning? Not on file 05/03/2024 No 05/03/2024 No 05/03/2024 Digital Access Answer Date Recorded No 05/03/2024 No 05/03/2024 Reliable internet access at home? Not on file 05/03/2024 Device with a working camera? Not on file Comments No Sex and Gender Information Value Date Recorded Sex Assigned at Female 06/01/2024 1:53 PM EDT Legal Sex Female 1:50 PM EDT Gender Identity Female 06/01/2024 1:53 PM EDT Sexual Orientation Straight 06/01/2024 1: 53 PM EDT Last Filed Vital Signs Vital Sign Reading Time Taken Comments Blood Pressure 98/60 06/07/2024 10:02 AM EDT Pulse - - Temperature - - Respiratory Rate - - Oxygen Saturation - - Inhaled Oxygen Concentration - - Weight 76.2 kg (168 lb) 06/07/2024 10:02 AM EDT Height 172.7 cm (5' 8 ) 06/07/2024 10:02 AM EDT Body Mass Index 25.54 06/07/2024 10:02 AM EDT Plan of Treatment Health Maintenance Due Date Last Done Comments Adult Td,Tdap Booster 1955 LIPID PANEL 1955 DEPRESSION SCREENING 1968 SCREENING FOR DIABETES 02/08/1991 MAMMOGRAM 1996 COLOGUARD 02/08/2001 COLONOSCOPY 02/08/2001 COLORECTAL CANCER SCREENING 02/08/2001 FIT TEST 02/08/2001 FOBT 02/08/2001 SIGMOIDOSCOPY 02/08/2001 VIRTUAL COLONOSCOPY 02/08/2001 OSTEOPOROSIS SCREENING INITIAL (ONE-TIME) 02/08/2021 COVID-19 VACCINE ( season) 2024 10/24/2023, 11/26/2022, 11/28/2021, Additional history exists ZOSTER VACCINES Completed 04/04/2021, 11/07/2020 HEPATITIS C SCREENING Completed 06/21/2021 RSV VACCINE Completed 11/18/2022 PNEUMOCOCCAL VACCINES (50+ years) Completed 11/26/2022 SMOKING STATUS SCREENING (Once After 26 Yrs) Completed 06/07/2024 HEPATITIS A VACCINES Aged Out No long er eligible based on patient's age to complete this topic HIB VACCINES Aged Out No longer eligi ble based on patient's age to complete this topic MENINGOCOCCAL VACCINES (ACWY) Aged Out No longer eligible based on patient's age to complete this topic MENINGOCOCCAL VACCINES (B) Aged Out N o longer eligible based on patient's age to complete this topic Medical Devices Not on file Insurance MEDICARE PART A & B [employer] E[employer] MEDICARE PART A & B [facility] EPO MEDICARE PART A & B [employer] [place] [employer] MEDICARE PART A & B [employer] E[employer] MEDICARE PART A & B [employer] [place] [id number] MEDICARE PART A & B [facility] EPO [place] [id number] Care Teams Flap Lining Binder Relationship Specialty Start Date End Date Pcp, Unknown PCP - General 05/03/24 Additional Source Comments The information contained in this document represents components of the legal health record. It is not the complete legal health record.[facility]
--- OUTSIDE RECORDS SUMMARY | 2024-09-20 09:17 | XMS_ITS | Patient Health Record ---
Author Organization [facility] Address [address] [place] [address] Care Team Providers Care Supervisor Public Message Service Name Role Phone GURMEET RUIZ NP Primary Care Provider Gaurav Coffey Unavailable [phone] ALLISON NEGRETE Unavailable Unavailable Allergies Allergen (clinical [...] Problem Screening for malignant neoplasm of colon (080091358) Encounter for screening for malignant neoplasm of colon (Z12.11) Active confirmed Problem Elevated liver enzymes level (158695828) Elevated liver function tests (R79.89) Active confirmed Problem Gallstones (697936703) Gallstones (K80.20) Active confirmed Problem Gastroesophageal reflux disease (624895120) GERD (gastroesophag eal reflux disease) (K21.9) Active confirmed Problem Elevated liver enzymes level (482571750) Elevated liver function tests (R94.5) Active confirmed Plan Of Treatment Pending Test Test Name Order Date LIVER PROFILE 07/24/2021 LIVER PROFILE 12/04/2021 CBC w DIFF 07/24/2021 PROTHROMBIN TIME (PT, INR) 07/24/2021 Insurance Providers Payer Name Payer Address Payer Phone Subscriber Number Group Number Insured Name Patient Relationship to Insured Coverage Start Date Coverage End Date MEDICARE OF [place] [address] [place] [address] [id number] VALENTINO ONEIL Self - patient is the insured [facility] [address] [address] [place] [address] [id number] VALENTINO ONEIL Self - patient is the insured Medical (General) History Medical History History ICD Code Denies ND,DM,CVA,renal disease Asthma GERD-told of a hiatal hernia [...]
== END 2024-09-20 09:45 | disposition home or self-care (01) ==
PROVIDERS: PCP Nurse Practitioner Family; Visit Provider Nurse Practitioner Family
DX: J45.909 Unspecified asthma, uncomplicated (principal); R06.00 Dyspnea, unspecified; R91.1 Solitary pulmonary nodule
CPT/HCPCS: 99204

== ENCOUNTER → 2024-09-20 08:58 | Outpatient (BNVA) | payer MEDICARE, OTHER, SELFPAY | PROVIDERS: PCP Nurse Practitioner Family; Visit Provider Nurse Practitioner Family | DX: R06.00 Dyspnea, unspecified (principal); J45.909 Unspecified asthma, uncomplicated; R91.1 Solitary pulmonary nodule | CPT/HCPCS: 99202 ==

== ENCOUNTER 2024-10-08 10:14 | Outpatient (REF) | payer MEDICARE, OTHER, SELFPAY ==
--- NOTE | ~2024-10-08 | CT_ITS ---
CLINICAL HISTORY: R91.1 - Solitary pulmonary nodule CT chest without contrast Comparison: None provided Findings: The heart is normal in size. There is no pericardial effusion. Couple subcentimeter hypodense left thyroid nodules are present. There is no mediastinal, hilar, or axillary lymphadenopathy. 4 mm right middle lobe nodule (axial image 33 of series 3) is present. Mild biapical lung scarring is noted. Limited examination of the upper abdomen demonstrates cholecystectomy clips. Thoracic dextroscoliosis is present with associated mild degenerative changes. No acute osseous abnormality is identified. IMPRESSION: 1. 4 mm right middle lobe lung nodule. According to Fleischner society guidelines, if patient is at high risk for neoplasm, follow-up CT chest in 12 months is optional. This document has been electronically signed by: Lucie Galvan on 10/10/2024 08:59:31
--- OUTSIDE RECORDS SUMMARY | 2024-10-08 10:17 | XMS_ITS | Continuity of Care Document ---
Author Organization [facility] [address] [place] [address] Phone [phone] Care Team Providers Care Segmental Wall Installer Name Role Phone Suellen Mendoza CNP Care Team Information Receive r [phone] Problems Active Problems Provider Date Gastroesophageal reflux [...]
--- OUTSIDE RECORDS SUMMARY | 2024-10-08 10:17 | XMS_ITS | Clinical Summary ---
Author Organization [facility] Address [address] [place] [address] Phone Care Team Providers Care Will Call Clerk Name Role Phone Pcp, Unknown Primary Care [...] [place] E[place] MEDICARE PART A & B [facility] EPO MEDICARE PART A & B [employer] E[employer] MEDICARE PART A & B [employer] E[place] MEDICARE PART A & B [place] Status Overload [place] [id number] MEDICARE PART A & B [facility] [place] [id number] Care Teams Will Call Clerk Relationship Specialty Start Date End Date Pcp, Unknown PCP - General 05/03/24 Additional Source Comments The information contained in this document represents components of the legal health record. It is not the complete legal health record.[facility]
--- OUTSIDE RECORDS SUMMARY | 2024-10-08 10:17 | XMS_ITS | Clinical Summary ---
Author Organization [facility] Address [address] [place] [address] Care Team Providers Care Psychology Teacher Name Role Phone Unknown Primary Care Provider [...] to complete this topic Insurance Care Teams Psychology Teacher Relationship Specialty Start Date End Date Unknown Unknow Provider Address PCP - General 03/18/19
--- OUTSIDE RECORDS SUMMARY | 2024-10-08 10:17 | XMS_ITS | Patient Health Record ---
Author Organization [facility] Address [address] [place] [address] Care Team Providers Care Truck Technician Name Role Phone GURMEET RUIZ NP Primary Care Provider Gaurav Coffey Unavailable [phone] ALLISON NEGRETE Unavailable Unavailable Allergies Allergen (clinical [...] Problem Screening for malignant neoplasm of colon (752247662) Encounter for screening for malignant neoplasm of colon (Z12.11) Active confirmed Problem Elevated liver enzymes level (945724329) Elevated liver function tests (R79.89) Active confirmed Problem Gallstones (293013263) Gallstones (K80.20) Active confirmed Problem Gastroesophageal reflux disease (117108819) GERD (gastroesophag eal reflux disease) (K21.9) Active confirmed Problem Elevated liver enzymes level (877933704) Elevated liver function tests (R94.5) Active confirmed Plan Of Treatment Pending Test Test Name Order Date LIVER PROFILE 12/04/2021 LIVER PROFILE 07/24/2021 CBC w DIFF 07/24/2021 PROTHROMBIN TIME (PT, INR) 07/24/2021 Insurance Providers Payer Name Payer Address Payer Phone Subscriber Number Group Number Insured Name Patient Relationship to Insured Coverage Start Date Coverage End Date MEDICARE OF [place] [address] [place] [address] [id number] VALENTINO ONEIL Self - patient is the insured [facility] [address] [address] [place] [address] [id number] VALENTINO ONEIL Self - patient is the insured Medical (General) History Medical History History ICD Code Denies [place],DM,CVA,renal disease Asthma GERD-told of a hiatal hernia [...]
== END 2024-10-08 10:15 | disposition home or self-care (01) ==
LOC: HO.CT 10:14
PROVIDERS: PCP Nurse Practitioner Family; Visit Provider Nurse Practitioner Family
DX: R91.1 Solitary pulmonary nodule (principal)
CPT/HCPCS: 71250

== ENCOUNTER → 2024-10-08 10:30 | Outpatient (BNV) | payer MEDICARE, OTHER, SELFPAY | PROVIDERS: PCP Nurse Practitioner Family; Visit Provider Radiology Vascular & Interventional Radiology | DX: R91.1 Solitary pulmonary nodule (principal) | CPT/HCPCS: 71250 ==

== ENCOUNTER 2024-11-29 07:48 | Outpatient (REF) | payer MEDICARE, OTHER, SELFPAY ==
--- OUTSIDE RECORDS SUMMARY | 2024-11-29 07:52 | XMS_ITS | Clinical Summary ---
Author Organization [facility] Address [address] [place] [address] Phone Care Team Providers Care Stoner Hand Name Role Phone Pcp, Unknown Primary Care [...] COLONOSCOPY 02/08/2001 OSTEOPOROSIS SCREENING INITIAL (ONE-TIME) 02/08/2021 INFLUENZA VACCINE (#1) 2024 , 11/18/2022, 11/28/2021, Additional history exists COVID-19 VACCINE ( season) 2024 10/24/2023, 11/26/2022, [...] EPO MEDICARE PART A & B [employer] EPO MEDICARE PART A & B [employer] E[employer] Care Teams Stoner Hand Relationship Specialty Start Date End Date Pcp, Unknown PCP - General 05/03/24 Additional Source Comments The information contained in this document represents components of the legal health record. It is not the complete legal health record.[facility]
--- OUTSIDE RECORDS SUMMARY | 2024-11-29 07:52 | XMS_ITS | Continuity of Care Document ---
Author Organization [facility] [address] [place] [address] Phone [phone] Care Team Providers Care Supervisor Industrial Garment Name Role Phone Suellen Mendoza CNP Care Team Information Receive r [phone] Problems Active Problems Provider Date Gastroesophageal reflux [...]
--- OUTSIDE RECORDS SUMMARY | 2024-11-29 07:52 | XMS_ITS | Clinical Summary ---
Author Organization [facility] Address [address] [place] [address] Care Team Providers Care Customs Compliance Director Name Role Phone Unknown Primary Care Provider [...] Health Maintenance Due Date Last Done Comments Advance Care Planning 1955 Hepatitis C Virus Screening 1955 DTaP/Tdap/Td Vaccines (1 - Tdap) 02/08/1975 Mammogram 1996 Colonoscopy 02/08/2001 Pneumococcal Vaccines 50+ (1 of 1 - PCV) 02/08/2006 Zoster (Shingles) Vaccine (1 of 2) 02/08/2006 RSV Vaccine 60 years and old er and Patients (1 - Risk 60-74 years 1-dose series) 2016 DXA Bone Density (Females,Ag es 65 and older) 02/08/2021 Influenza Vaccine 09/23/2024 COVID-19 Vaccine (2023-2 5 season) 2024 Hepatitis B Vaccines Aged Out No long er eligible based on patient's age to complete this topic Insurance [address] [place] [id number] Care Teams Customs Compliance Director Relationship Specialty Start Date End Date Unknown Unknow Provider Address PCP - General 03/18/19
--- OUTSIDE RECORDS SUMMARY | 2024-11-29 07:52 | XMS_ITS | Patient Health Record ---
Author Organization [facility] Address [address] [place] [address] Care Team Providers Care Wax Pattern Repairer Name Role Phone GURMEET RUIZ NP Primary Care Provider Gaurav Coffey Unavailable [phone] ALLISON NEGRETE Unavailable Unavailable Allergies Allergen (clinical [...] Problem Screening for malignant neoplasm of colon (429372479) Encounter for screening for malignant neoplasm of colon (Z12.11) Active confirmed Problem Elevated liver enzymes level (265123317) Elevated liver function tests (R79.89) Active confirmed Problem Gallstones (398703091) Gallstones (K80.20) Active confirmed Problem Gastroesophageal reflux disease (241730528) GERD (gastroesophag eal reflux disease) (K21.9) Active confirmed Problem Elevated liver enzymes level (243668403) Elevated liver function tests (R94.5) Active confirmed Plan Of Treatment Pending Test Test Name Order Date LIVER PROFILE 12/04/2021 LIVER PROFILE 07/24/2021 CBC w DIFF 07/24/2021 PROTHROMBIN TIME (PT, INR) 07/24/2021 Insurance Providers Payer Name Payer Address Payer Phone Subscriber Number Group Number Insured Name Patient Relationship to Insured Coverage Start Date Coverage End Date MEDICARE OF [place] [address] [place] [address] [id number] VALENTINO ONEIL Self - patient is the insured [facility] [address] [address] [place] [address] [id number] VALENTINO ONEIL Self - patient is the insured Medical (General) History Medical History History ICD Code Denies NE,DM,CVA,renal disease Asthma GERD-told of a hiatal hernia [...]
--- NOTE | 2024-11-29 08:04 | PFT_ITS ---
Flows: FEV1: 81 % of predicted at 2.01 L FVC: 86 % of predicted at 2.75 L FEV1/FVC: 73 % Bronchodilator response: Absent Volumes: Total lung capacity: 79 % of predicted at 4.35 L Residual volume: 73 % of predicted at 1.56 L Slow vital capacity: 83 % of predicted at 2.79 L Expiratory reserve volume: 47 % of predicted at 0.40 L Diffusion capacity: Mildly decreased, corrects to normal after adjustment for alveolar ventilation. Impression: Mild restrictive ventilatory defect with no bronchodilator response. Decreased expiratory reserve volume suggests extrathoracic restriction likely secondary to abdominal obesity. Combination of restrictive ventilatory defect with decreased diffusion capacity suggests underlying pulmonary parenchymal disease. Clinical correlation is advised. MTDD
[2024-11-29 08:53] VITALS: PULSE 102; O2SAT 100
== END 2024-11-29 07:49 | disposition home or self-care (01) ==
LOC: HO.RESP 07:48
PROVIDERS: Visit Provider Nurse Practitioner Family
DX: J45.909 Unspecified asthma, uncomplicated (principal)
CPT/HCPCS: 94010; 94640; 94727; 94729

== ENCOUNTER → 2024-11-29 08:04 | Outpatient (BNV) | payer MEDICARE, OTHER, SELFPAY | PROVIDERS: Visit Provider Internal Medicine Pulmonary Disease | DX: J45.909 Unspecified asthma, uncomplicated (principal) | CPT/HCPCS: 94060; 94727; 94729 ==

== ENCOUNTER 2024-12-19 11:04 | Outpatient (AMB) | payer MEDICARE, OTHER, SELFPAY ==
[2024-12-19 11:09] VITALS: BP 120/64; PULSE 94; RESP 18; TEMP 36.1; O2SAT 99; BMI 24.4
--- NOTE | 2024-12-19 11:09 | A.OFFPC_ITS ---
Vital Signs 12/19/24 11:09 Height 5 ft 8 in Weight 160 lb 8 oz BMI 24.4 BP 120/64 Blood Pressure Location Lt brachial Position Sitting Respiration 18 Pulse 94 Pulse Source Pulse Oximeter Temp 96.9 F Temp Source Temporal Artery Scan Pulse Oximetry (%) 99 Oxygen Delivery Method Room Air Intake Visit Reasons: BELIA Dr Howell Glaze Sprayer Required: No Accompanied by: Self / Same As Patient Allergies Penicillins Allergy (Intermediate, Verified 12/19/24 11:32) Angioedema codeine Adverse Reaction (Verified 12/19/24 11:32) Nausea, Abdominal pain Medication List - Last Reconciled 12/19/24 by CRISTINA Pearce albuterol sulfate 90 mcg/actuation 2 puffs inhalation Q4-6H PRN atorvastatin 40 mg PO BEDTIME 90 days bupropion HCl XL 150 mg PO DAILY dextroamphetamine-amphetamine 10 mg (Adderall) 15 mg PO BID fexofenadine 180 mg PO BEDTIME fluoxetine 20 mg PO DAILY fluticasone propion-salmeterol 250-50 mcg/dose (Advair Diskus) 1 ea inhalation BID montelukast 10 mg PO DAILY multivitamin 1 tab PO DAILY Tobacco use date assessed: 12/19/24 Fall risk assessment: 1 Fall in past year Last assessed Fall Risk: 12/19/24 Dental Screening Dental Screen Date: 12/19/24 Did you have a dental visit in the last 12 months?: Yes Did you have a dental problem in the last 6 months where you did not have access to dental care?: No Was dental information given to patient?: Patient has dentist HPI BELIA Dr Howell HPI Details The patient is a 69-year-old female presenting for transferring of care from Dr. Ken and for an annual physical examination, management of multiple chronic conditions, and evaluation of dizziness. Her primary complaint is persistent dizziness and staggering, which has been present since a concussion from an accident in [place]. The dizziness is worse upon standing, is not a spinning sensation, and causes a fear of falling, particularly near traffic. Associated symptoms since the concussion include tinnitus and sensitivity to bright lights and loud noises. The patient has a history of hypercholesterolemia, which she believes is genetic, as her father also had it. Her classification control clerk increased her statin dose from 20 mg to 40 mg, which led to leg weakness; consequently, she has been taking 20 mg by splitting the pills. A prior ER visit for suspected heart attack symptoms, which was ultimately thought to be a panic attack, led to a cardiac workup including a normal echocardiogram and a calcium scan that showed minimal plaque. The patient has a long-standing history of depression and anxiety, for which she has been taking fluoxetine for many years and Wellbutrin for about seven or eight years. She was recently diagnosed with ADHD and sees an online psychiatrist who manages her psychotropic medications, including Adderall. Her sleep has improved since her psychiatrist switched her to immediate-release Wellbutrin and advised taking fluoxetine at night. She also sees an online therapist weekly. Ophthalmologic history is significant for an epiretinal membrane in the right eye, for which she underwent a vitrectomy 3-4 years ago. The surgery did not resolve her distorted vision, which contributes to her balance problems as floors can appear to be undulating. She subsequently had cataract surgery and has annual follow-ups with her radio installer automobile. Past medical history includes asthma, which is well-controlled with a Wixela inhaler; she rarely uses her albuterol inhaler and requests a refill for Montelukast. She had a cholecystectomy a couple of years ago, which resolved chronic acid reflux. She has a history of routine colonoscopies since age 51, with removal of a few benign polyps; her last one was 5-6 years ago. A lung polyp and thyroid nodules were found incidentally on recent scans, and she has a pulmonology appointment scheduled. She was diagnosed with osteoporosis at age 31 and had adverse reactions to all medications. Through weight training, her bone density improved to osteopenia, confirmed on a bone scan about 1.5 years ago. She has a history of multiple falls but only one fracture, a chipped elbow about 10 years ago. She also has arthritis in her neck and is being treated for lichen sclerosus. The patient is seeing Dr. Szymanski for cardiology, Dianna Soto NP for pulmonology, Dr. Young for gastroenterology, her Ophthalmology is in [place] but she can not remember the name. She is currently seeing an online psychiatrist every 3-4 weeks for now during her medication transformation and she is also seeing an online therapist once a week. [facility] Medical History Tinnitus High cholesterol Skin cancer Depression Asthma GERD (gastroesophageal reflux disease) Hiatal hernia Surgical History History of breast biopsy Hx of colonoscopy Family History Other Mental health disorder Social History Housing: House Are you a primary cattle care worker to a significant other at home: No Do you presently have visiting nurse or other home services: No Alcohol intake: current Alcohol intake frequency: a few times a week Alcohol type: wine Patient Tobacco Use Status: Never used Tobacco e-Cigarette/Vaping Use: Never Used Second Hand Smoke Exposure: No service: No Current occupational status: employed 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 Current occupational exposures/hazards: No Cognitive needs: No Hearing needs: No Vision needs: No Questionnaire Thrive Questionnaire Date Thrive assessed: 04/29/24 I am a: Patient What is your living situation today?: I have a steady place to live Within the past 12 months, did the food you bought not last and you didn't have the money to get more?: Never true Within the past 12 months, did you worry whether your food would run out before you got money to buy more?: Never true Do you have trouble paying for medicines?: No Do you have trouble getting transportation to medical appointments?: Yes Do you have trouble paying your heating and electricity bill?: No Do you have trouble taking care of your child, family member or friend?: No Do you have trouble with day-to-day activities such as bathing, preparing meals, shopping, managing finances, etc.?: No Are you currently unemployed and looking for a job?: No Are you interested in more education?: Yes Please select the resources that you would like help with: None Currently or been in a relationship where the following occur: No concerns reported THRIVE Score: 1 JESSICA-7 AMB Questionnaire JESSICA-7 Date JESSICA - 7 assessed: 08/30/24 Source: Developed by Drs. Gaurav Trevino, Agueda Neri, Crow Bowling and colleagues, with an educational soila from [employer]. Review of Systems Const Denies headache(s) Eyes Reports change in vision (distortion of vision in the right eye), Denies loss of vision and Reports other visual disturbances (depth perception impairment) ENT Denies vertigo, Reports dizziness, Denies headache(s), Reports neck pain, Reports tinnitus (bilateral ear) and Denies sore throat Card Denies chest pain, Denies leg edema and Denies lightheadedness Resp Denies cough, Denies hemoptysis and Denies wheezing GI Denies abdominal pain, Denies melena, Denies constipation, Denies diarrhea and Denies vomiting Denies urinary frequency, Denies dysuria and Denies urinary urgency Musc Denies arthralgias, Denies joint swelling, Reports neck pain, Denies numbness and Denies tingling Neuro Denies Abnormal speech present, Denies behavioral changes, Denies vertigo, Reports dizziness, Denies headache(s), Denies loss of vision, Denies memory loss, Denies numbness, Reports Other visual disturbances, Denies tingling and Reports other (gait disturbance) Psych Reports anxiety, Denies behavioral changes, Reports depression, Reports difficulty concentrating, Denies memory loss and Denies panic attacks Ang/Lymph Denies easy bleeding and Denies easy bruising Aller/Immun Denies wheezing Physical exam (Primary Care) Vital Signs: Last Vital Signs Temp 96.9 F 12/19/24 11:09 Pulse 94 12/19/24 11:09 Resp 18 12/19/24 11:09 BP 120/64 12/19/24 11:09 Pulse Ox 99 12/19/24 11:09 Oxygen Delivery Method Room Air 12/19/24 11:09 BMI result Body Mass Index 24.4 Tobacco/Smoking Status: Tobacco use Status Tobacco use date assessed 12/19/24 12/19/24 11:17 Patient Tobacco Use Status Never used Tobacco 12/19/24 11:17 e-Cigarette/Vaping Use Never Used 12/19/24 11:17 Thrive Assessment: Date of Thrive Assessment Date Thrive assessed 04/29/24 12/19/24 11:17 Currently or been in a relationship where the following occur: No concerns reported Const General: healthy appearing, no acute distress, alert and awake Nutritional Appearance: well nourished Orientation/consciousness: oriented to person, oriented to place and oriented to time HENMT Ears: TM's normal bilaterally General nose exam: Normal nasal mucous membranes and turbinates present Eyes Conjunctivae: conjunctivae normal Sclerae: sclerae normal Pupils: Equal, round and reactive pupils present Neck Neck: Yes no lymphadenopathy and Yes no JVD Thyroid: Thyroid normal Carotids: no bruits Resp Effort & Inspection: normal respiratory effort and not tachypneic Auscultation: no crackles, no rales, no rhonchi and no wheezes Cardio Rate: regular rate Rhythm: regular rhythm Heart sounds: no murmurs and normal S1 and S2 Bruits: carotid bruit (mild) bilaterally GI Palpation (GI): Soft to palpation, nontender, no hepatomegaly and no splenomegaly Auscultation: normal bowel sounds General: Yes no CVA tenderness Back/Spine/Pelvis Back: no CVA tenderness Cervical Spine: No Cervical spine tenderness Thoracic/Lumbar Spine: No lumbar spinal tenderness Skin General skin exam: no rashes or lesions noted and dry skin Neuro General: oriented to person, oriented to place and oriented to time Cranial nerves: Yes Equal, round and reactive pupils present Speech: No Abnormal speech present Gait exam (Neuro): Normal gait present Motor exam (neuro): no tremor noted Extrem Right upper extremity: full ROM Left upper extremity: full ROM Right lower extremity: full ROM; no edema Left lower extremity: full ROM; no edema Psych Mental Status: mental status grossly normal Speech and movement: Normal speech and movement present Affect: normal affect Attitude: cooperative Thought process: Normal thought process present Coding Level of Care Code Est Pt Prev Care >65y(11650) Diagnoses Annual physical exam Z00.00 Anxiety with depression F41.8 Attention deficit hyperactivity disorder (ADHD), unspecified ADHD type F90.9 Attention deficit-hyperactivity disorder type: unspecified Hypercholesterolemia E78.00 Elevated fasting glucose R73.01 Osteoporosis without current pathological fracture, unspecified osteoporosis type M81.0 Osteoporosis type: unspecified Presence of current pathological fracture: without current pathological fracture Tinnitus of both ears H93.13 Laterality: bilateral Moderate persistent asthma, unspecified whether complicated J45.40 Asthma complication type: unspecified Asthma persistence: persistent Asthma severity: moderate Pulmonary nodule less than 6 mm determined by computed tomography of lung R91.1 Dizziness and giddiness R42 Time Spent (min) 41 Assessment & Plan Assessment & Plan (1) Annual physical exam: Code(s): Z00.00 - Encounter for general adult medical examination without abnormal findings Category: Medical Plan: Preventative guidelines reviewed with the patient. Labs ordered, we will advise when resulted. (2) Anxiety with depression: Code(s): F41.8 - Other specified anxiety disorders Category: Medical Plan: Ongoing, manages with bupropion HCI 150 mg daily, fluoxetine 20 mg daily Follow up with Psychiatry as scheduled (3) ADHD: Code(s): F90.9 - Attention-deficit hyperactivity disorder, unspecified type Category: Medical Qualifiers: Attention deficit-hyperactivity disorder type: unspecified Qualified Code(s): F90.9 - Attention-deficit hyperactivity disorder, unspecified type Plan: Diagnosed earlier this year. Continue Adderall 15 mg b.i.d. Follow up with Psychiatry as scheduled (4) Hypercholesterolemia: Code(s): E78.00 - Pure hypercholesterolemia, unspecified Category: Medical Plan: Triglycerides 79, total cholesterol 171, LDL 87, HDL 69. The patient atorvastatin was increased from 20 mg to 40 mg by Cardiology to lower her LDL to less than 70. Patient reports that she has been getting leg weakness after starting the 40 mg, so she has been breaking the 40 mg in half. She has not told cardiology as yet, and plans to do so at her next appt. Discussed adding ezetimibe to the patient 20 mg that she is taking, but she wants to wait until she sees Cardiology for any changes. (5) Elevated fasting glucose: Code(s): R73.01 - Impaired fasting glucose Category: Medical Plan: The patient had a fasting glucose of 106 on 11/14/23. Repeat in 08/29/24 was normal at 98. Will continue to monitor (6) Osteoporosis: Code(s): M81.0 - Age-related osteoporosis without current pathological fracture Category: Medical Qualifiers: Osteoporosis type: unspecified Presence of current pathological fracture: without current pathological fracture Qualified Code(s): M81.0 - Age- related osteoporosis without current pathological fracture Plan: DEXA scan done on 01/14/23, showing osteoporosis with lowest T-score value on - 3.3 in lumbar spine. Left femur neck -2.0 and left femur total -1.5. Encouraged weight bearing exercise, encouraged calcium supplements and vitamin D. The patient is currently taking a multivitamin daily. (7) Tinnitus: Code(s): H93.19 - Tinnitus, unspecified ear Category: Medical Qualifiers: Laterality: bilateral Qualified Code(s): H93.13 - Tinnitus, bilateral Plan: Tinnitus and dizziness cause her to feel imbalance. Hearing tests ordered. Patient isn't sure if her tinnitus is pulsatile. Patient had an elevated CT calcium score and was started on statins by Cardiology. Mild carotid bruit heard bilaterally. We will order carotid ultrasound to further evaluate. (8) Asthma: Code(s): J45.909 - Unspecified asthma, uncomplicated Category: Medical Qualifiers: Asthma complication type: unspecified Asthma persistence: persistent Asthma severity: moderate Qualified Code(s): J45.40 - Moderate persistent asthma, uncomplicated Plan: Stable on treatment. Continue Advair Diskus inhalation b.i.d., montelukast 10 mg daily and albuterol sulfate 90 mcg/actuation 2 puffs inhalation Q 4-6 H p.r.n. (9) Pulmonary nodule less than 6 mm determined by computed tomography of lung: Code(s): R91.1 - Solitary pulmonary nodule Category: Medical Plan: Incidental nodule found on CT. Follow up with pulmonology as scheduled (10) Dizziness and giddiness: Code(s): R42 - Dizziness and giddiness Category: Medical Plan: Labs ordered to re-evaluate electrolytes. Encouraged adequate hydration, rise slowly, avoid falling. Hearing tests ordered along with bilateral carotid ultrasound. Plan Patient to return in 3 months or sooner for any concerns Orders: Orders Complete Blood Count Auto Diff Today E78.00 - Pure hypercholesterolemia, unspecified, F41.8 - Other specified anxiety disorders, F90.9 - Attention- deficit hyperactivity disorder, unspecified type, K21.9 - Gastro-esophageal reflux disease without esophagitis, M81.0 - Age-related osteoporosis without current pathological fracture, R73.01 - Impaired fasting glucose, R93.1 - Abnormal findings on diagnostic imaging of heart and coronary circulation, Z00.00 - Encounter for general adult medical examination without abnormal findings Comprehensive Taylor. Panel Fast Today E78.00 - Pure hypercholesterolemia, unspecified, F41.8 - Other specified anxiety disorders, F90.9 - Attention-deficit hyperactivity disorder, unspecified type, K21.9 - Gastro- esophageal reflux disease without esophagitis, M81.0 - Age-related osteoporosis without current pathological fracture, R73.01 - Impaired fasting glucose, R93.1 - Abnormal findings on diagnostic imaging of heart and coronary circulation, Z00.00 - Encounter for general adult medical examination without abnormal findings Lipid Panel Today E78.00 - Pure hypercholesterolemia, unspecified, F41.8 - Other specified anxiety disorders, F90.9 - Attention-deficit hyperactivity disorder, unspecified type, K21.9 - Gastro-esophageal reflux disease without esophagitis, M81.0 - Age-related osteoporosis without current pathological fracture, R73.01 - Impaired fasting glucose, R93.1 - Abnormal findings on diagnostic imaging of heart and coronary circulation, Z00.00 - Encounter for general adult medical examination without abnormal findings TSH reflex Free T4 Today E78.00 - Pure hypercholesterolemia, unspecified, F41.8 - Other specified anxiety disorders, F90.9 - Attention-deficit hyperactivity disorder, unspecified type, K21.9 - Gastro-esophageal reflux disease without esophagitis, M81.0 - Age-related osteoporosis without current pathological fracture, R73.01 - Impaired fasting glucose, R93.1 - Abnormal findings on diagnostic imaging of heart and coronary circulation, Z00.00 - Encounter for general adult medical examination without abnormal findings Hemoglobin A1c Today R73.01 - Impaired fasting glucose US carotid duplex BI Today H93.A3 - Pulsatile tinnitus, bilateral UA CC w/rflx Micro + Cult Today E78.00 - Pure hypercholesterolemia, unspecified, F41.8 - Other specified anxiety disorders, F90.9 - Attention- deficit hyperactivity disorder, unspecified type, K21.9 - Gastro-esophageal reflux disease without esophagitis, M81.0 - Age-related osteoporosis without current pathological fracture, R73.01 - Impaired fasting glucose, R93.1 - Abnormal findings on diagnostic imaging of heart and coronary circulation, Z00.00 - Encounter for general adult medical examination without abnormal findings Vitamin B12 Today E78.00 - Pure hypercholesterolemia, unspecified, F41.8 - Other specified anxiety disorders, F90.9 - Attention-deficit hyperactivity disorder, unspecified type, K21.9 - Gastro-esophageal reflux disease without esophagitis, M81.0 - Age-related osteoporosis without current pathological fracture, R73.01 - Impaired fasting glucose, R93.1 - Abnormal findings on teodora gnostic imaging of heart and coronary circulation, Z00.00 - Encounter for general adult medical examination without abnormal findings Vitamin D 25-OH Total Today E78.00 - Pure hypercholesterolemia, unspecified, F41.8 - Other specified anxiety disorders, F90.9 - Attention-deficit hyperactivity disorder, unspecified type, K21.9 - Gastro-esophageal reflux disease without esophagitis, M81.0 - Age-related osteoporosis without current pathological fracture, R73.01 - Impaired fasting glucose, R93.1 - Abnormal findings on diagnostic imaging of heart and coronary circulation, Z00.00 - Encounter for general adult medical examination without abnormal findings Referrals Speech and Hearing Referral H93.19 - Tinnitus, unspecified ear
--- OUTSIDE RECORDS SUMMARY | 2024-12-19 13:59 | XMS_ITS | Continuity of Care Document ---
Author Organization [facility] [address] [place] [address] Phone [phone] Care Team Providers Care Ham Marker Name Role Phone Suellen Mendoza CNP Care Team Information Receive r [phone] Problems Active Problems Provider Date Gastroesophageal reflux [...]
--- OUTSIDE RECORDS SUMMARY | 2024-12-19 13:59 | XMS_ITS | Clinical Summary ---
Author Organization [facility] Address [address] [place] [id number] Phone Care Team Providers Care Clinical Laboratory Service Teacher Name Role Phone Pcp, Unknown Primary Care [...] EPO MEDICARE PART A & B [employer] EPO MEDICARE PART A & [place] [address] Care Teams Clinical Laboratory Service Teacher Relationship Specialty Start Date End Date Pcp, Unknown PCP - General 05/03/24 Additional Source Comments The information contained in this document represents components of the legal health record. It is not the complete legal health record.[facility]
--- OUTSIDE RECORDS SUMMARY | 2024-12-19 13:59 | XMS_ITS | Clinical Summary ---
Author Organization [facility] Address [address] [place] [address] Care Team Providers Care Data Sciences Director Name Role Phone Unknown Primary Care [...] 50+ (1 of 1 - PCV) 02/08/2006 RSV Vaccine 50 years and old er and Patients (1 - Risk 50-74 years 1-dose series) 02/08/2006 Zoster (Shingles) Vaccine (1 of 2) 02/08/2006 DXA Bone Density (Females,Ag es 65 and older) 02/08/2021 Influenza Vaccine 09/23/2024 COVID-19 Vaccine (2023-2 5 season) 2024 Hepatitis B Vaccines Aged Out No long er eligible based on patient's age to complete this topic Insurance apt [address] [place] [id number] Care Teams Data Sciences Director Relationship Specialty Start Date End Date Unknown Unknow Provider Address PCP - General 03/18/19
--- OUTSIDE RECORDS SUMMARY | 2024-12-19 14:00 | XMS_ITS | Patient Health Record ---
Author Organization [facility] Address [address] [place] [address] Care Team Providers Care Manager Beauty Name Role Phone NONE, NONE Primary Care Provider Gaurav Plata Unavailable [phone] ALLISON NEGRETE Unavailable Unavailable Allergies Allergen (clinical [...] Active buPROPion HCl ER (XL) 150 MG Oral; Duration: 30 Active Advair Diskus 250-50 MCG/ACT INHALE 1 PUFF BY MOUTH EVERY 12 HOURS Inhalation; Duration: 30 Active Singulair 10 MG 1 tablet Orally Once a day; Duration: 30 day(s) Active FLUoxetine HCl 20 MG TAKE 1 CAPSULE BY M OUTH EVERY DAY Oral; Duration: 30 Active Vitamin D Active Immunizations Vaccine [...] Problem Screening for malignant neoplasm of colon (603941889) Encounter for screening for malignant neoplasm of colon (Z12.11) Active confirmed Problem Elevated liver enzymes level (789372005) Elevated liver function tests (R79.89) Active confirmed Problem Gallstones (932024146) Gallstones (K80.20) Active confirmed Problem Gastroesophageal reflux disease (958364219) GERD (gastroesophag eal reflux disease) (K21.9) Active confirmed Problem Elevated liver enzymes level (284262539) Elevated liver function tests (R94.5) Active confirmed Plan Of Treatment Pending Test Test Name Order Date LIVER PROFILE 12/04/2021 LIVER PROFILE 07/24/2021 CBC w DIFF 07/24/2021 PROTHROMBIN TIME (PT, INR) 07/24/2021 Next Appt Details Provider Name:Gaurav Smith Hector , 04/20/2025 10:40:00 AM, [address] [place] [address], [address], [place], [address], Insurance Providers Payer Name Payer Address Payer Phone Subscriber Number Group Number Insured Name Patient Relationship to Insured Coverage Start Date Coverage End Date MEDICARE OF [place] [address] [place] [address] [phone] [id number] VALENTINO ONEIL Self - patient is the insured [facility] [address] [address] [place] [address] [id number] VALENTINO ONEIL Self - patient is the insured Medical (General) History Medical History History ICD Code Denies GA,DM,CVA,renal disease Asthma GERD-told of a hiatal hernia [...]
== END 2024-12-19 12:22 | disposition home or self-care (01) ==
LOC: HO.HMCH 11:05
DX: Z00.00 Encounter for general adult medical examination without abnormal findings (principal); F41.8 Other specified anxiety disorders; F90.9 Attention-deficit hyperactivity disorder, unspecified type; E78.00 Pure hypercholesterolemia, unspecified; R73.01 Impaired fasting glucose; M81.0 Age-related osteoporosis without current pathological fracture; H93.13 Tinnitus, bilateral; J45.40 Moderate persistent asthma, uncomplicated; R91.1 Solitary pulmonary nodule; R42 Dizziness and giddiness

== ENCOUNTER → 2024-12-19 11:04 | Outpatient (BNVA) | payer MEDICARE, OTHER, SELFPAY | DX: Z00.00 Encounter for general adult medical examination without abnormal findings (principal); F41.8 Other specified anxiety disorders; F90.9 Attention-deficit hyperactivity disorder, unspecified type; E78.00 Pure hypercholesterolemia, unspecified; R73.01 Impaired fasting glucose; M81.0 Age-related osteoporosis without current pathological fracture; H93.13 Tinnitus, bilateral; J45.40 Moderate persistent asthma, uncomplicated; R91.1 Solitary pulmonary nodule; R42 Dizziness and giddiness; R93.1 Abnormal findings on diagnostic imaging of heart and coronary circulation | CPT/HCPCS: 99397 ==

== ENCOUNTER 2024-12-22 11:19 | Outpatient (REF) | payer MEDICARE, OTHER, SELFPAY ==
--- NOTE | ~2024-12-22 | US_ITS ---
CLINICAL HISTORY: H93.A3 - Pulsatile tinnitus, bilateral US Bilateral Carotid Duplex Comparison: None provided Findings: No significant plaque within the common carotid arteries. No significant plaque within the carotid bulbs. Normal color doppler and waveforms morphology. Peak systolic velocities: Right CCA: 99 cm/s. Right ICA: 88 cm/s. ICA/CCA ratio: 0.6. Right ECA: Unremarkable. Right vertebral artery flow antegrade. Left CCA: 116 cm/s. Left ICA: 68 cm/s. ICA/CCA ratio: 0.5. Left ECA: Unremarkable. Left vertebral artery flow antegrade. IMPRESSION: Normal carotid velocities, no significant stenosis (0-49% stenosis). This document has been electronically signed by: Pranay Flores MD on 12/23/2024 08:42:15
--- OUTSIDE RECORDS SUMMARY | 2024-12-22 14:11 | XMS_ITS | Patient Health Record ---
Author Organization [facility] Address [address] [place] [address] Care Team Providers Care Steam Frame Operator Name Role Phone NONE, NONE Primary Care Provider Gaurav Plata Unavailable [phone] ALLISON NEGRETE Unavailable Unavailable Allergies Allergen (clinical [...] Problem Screening for malignant neoplasm of colon (466804917) Encounter for screening for malignant neoplasm of colon (Z12.11) Active confirmed Problem Elevated liver enzymes level (609852776) Elevated liver function tests (R79.89) Active confirmed Problem Gallstones (269214909) Gallstones (K80.20) Active confirmed Problem Gastroesophageal reflux disease (290923199) GERD (gastroesophag eal reflux disease) (K21.9) Active confirmed Problem Elevated liver enzymes level (821755140) Elevated liver function tests (R94.5) Active confirmed Plan Of Treatment Pending Test Test Name Order Date LIVER PROFILE 12/04/2021 LIVER PROFILE 07/24/2021 CBC w DIFF 07/24/2021 PROTHROMBIN TIME (PT, INR) 07/24/2021 Next Appt Details Provider Name:Gaurav Smith Hector , 04/20/2025 10:40:00 AM, [address] [place] [address], [address], [place], [address], Insurance Providers Payer Name Payer Address Payer Phone Subscriber Number Group Number Insured Name Patient Relationship to Insured Coverage Start Date Coverage End Date MEDICARE OF [place] [address] [place] [address] [id number] VALENTINO ONEIL Self - patient is the insured [facility] [address] [address] [place] [address] [id number] VALENTINO ONEIL Self - patient is the insured Medical (General) History Medical History History ICD Code Denies [place],DM,CVA,renal disease Asthma GERD-told of a hiatal hernia [...]
--- OUTSIDE RECORDS SUMMARY | 2024-12-22 14:11 | XMS_ITS | Clinical Summary ---
Author Organization [facility] Address [address] [place] [address] Care Team Providers Care Java Developer Consultant Name Role Phone Unknown Primary Care Provider [...] age to complete this topic Insurance [address] [place] [id number] Care Teams Java Developer Consultant Relationship Specialty Start Date End Date Unknown Unknow Provider Address PCP - General 03/18/19
--- OUTSIDE RECORDS SUMMARY | 2024-12-22 14:11 | XMS_ITS | Clinical Summary ---
Author Organization [facility] Address [address] [place] [address] Phone Care Team Providers Care Cost Accountant Name Role Phone Pcp, Unknown Primary Care [...] EPO MEDICARE PART A & B UNITED [employer] EPO MEDICARE PART A & B [employer] EPO Care Teams Cost Accountant Relationship Specialty Start Date End Date Pcp, Unknown PCP - General 05/03/24 Additional Source Comments The information contained in this document represents components of the legal health record. It is not the complete legal health record.[facility]
--- OUTSIDE RECORDS SUMMARY | 2024-12-22 14:11 | XMS_ITS | Continuity of Care Document ---
Author Organization [facility] [address] [place] [address] Phone [phone] Care Team Providers Care Repossession Agent Name Role Phone Suellen Mendoza CNP Care Team Information Receive r [phone] Problems Active Problems Provider Date Gastroesophageal reflux [...]
== END 2024-12-22 11:20 | disposition home or self-care (01) ==
LOC: HO.US 11:19
DX: H93.A3 Pulsatile tinnitus, bilateral (principal)
CPT/HCPCS: 93880

== ENCOUNTER → 2024-12-22 11:23 | Outpatient (BNV) | payer MEDICARE, OTHER, SELFPAY | PROVIDERS: Visit Provider Specialist | DX: R42 Dizziness and giddiness (principal) | CPT/HCPCS: 93880 ==

== ENCOUNTER 2024-12-26 10:44 | Outpatient (REF) | payer MEDICARE, OTHER, SELFPAY ==
[2024-12-26 11:07] LABS: MANUAL DIFF FLAG NO
[2024-12-26 11:55] LABS: Hematocrit 40.1 % (37.0-47.0); Hemoglobin 13.0 g/dl (12.0-16.0); Imm Gran Abs Auto 0.02 X10*3/uL (0.00-0.03); Imm Gran Pct Auto 0.3 % (0.0-0.4); Lymphocytes Absolute Auto 1.5 X10*3/uL (1.2-4.9); Mean Corpuscular HGB Conc 32.4 g/dl (31.0-35.0); Mean Corpuscular Hemoglobin 30.7 pg (27.0-33.0); Mean Corpuscular Volume 94.6 fL (80.0-98.0); NRBC Abs Auto 0.000 X10*3/uL (0.0-0.012); NRBC Pct Auto 0.0 /100WBC (0.0-0.2); Platelet Count 286 X10*3/uL (160-400); Red Blood Count 4.24 X10*6/uL (4.20-5.50); White Blood Count 7.5 X10*3/uL (4.8-10.8)
[2024-12-26 12:21] LABS: Total Hemoglobin (HGBA1C) 3397.6749 umol/L
[2024-12-26 12:40] LABS: Albumin Level 4.4 g/dL (3.5-5.0); Alkaline Phosphatase 68 U/L (39-117); Anion Gap 9 (12-20); Aspartate Amino Transferase 29 U/L (5-31); Blood Urea Nitrogen 15 mg/dL (9-16); Calcium 9.8 mg/dL (8.4-10.2); Carbon Dioxide 28 mmol/L (22-29); Chloride 109 mmol/L (96-108); Cholesterol 198 mg/dL (<200); Estimated Glomerular Filt Rate > 60; HDL Cholesterol 70 mg/dL (>40); Potassium 3.9 mmol/L (3.3-5.1); Sodium 142 mmol/L (135-145); Total Protein 6.5 g/dL (6.5-8.0); Triglycerides 88 mg/dL (<150)
[2024-12-26 12:47] LABS: Cholesterol 198 mg/dL (<200); HDL Cholesterol 73 mg/dL (>40); Triglycerides 88 mg/dL (<150)
[2024-12-26 13:00] LABS: Alanine Aminotransferase 27 U/L (0-31)
[2024-12-26 13:07] LABS: Vitamin B12 397 pg/mL (200-900)
--- OUTSIDE RECORDS SUMMARY | 2024-12-26 13:09 | XMS_ITS | Clinical Summary ---
Author Organization [facility] Address [address] [place] [address] Care Team Providers Care Jacket Preparer Name Role Phone Unknown Primary Care Provider [...] age to complete this topic Insurance apt [address] [place] [phone] Care Teams Jacket Preparer Relationship Specialty Start Date End Date Unknown Unknow Provider Address PCP - General 03/18/19
--- OUTSIDE RECORDS SUMMARY | 2024-12-26 13:09 | XMS_ITS | Continuity of Care Document ---
Author Organization [facility] [address] [place] [address] Phone [phone] Care Team Providers Care Dope Pourer Name Role Phone Suellen Mendoza CNP Care Team Information Receive r [phone] Problems Active Problems Provider Date Gastroesophageal reflux [...]
--- OUTSIDE RECORDS SUMMARY | 2024-12-26 13:09 | XMS_ITS | Clinical Summary ---
Author Organization [facility] Address [address] [place] [address] Phone Care Team Providers Care Occupational Health Physician Name Role Phone Pcp, Unknown Primary Care [...] EPO MEDICARE PART A & B UNITED [email or web address] EPO MEDICARE PART A & B [employer] EPO Care Teams Occupational Health Physician Relationship Specialty Start Date End Date Pcp, Unknown PCP - General 05/03/24 Additional Source Comments The information contained in this document represents components of the legal health record. It is not the complete legal health record.[facility]
--- OUTSIDE RECORDS SUMMARY | 2024-12-26 13:09 | XMS_ITS | Patient Health Record ---
Author Organization [facility] Address [address] [place] [address] Care Team Providers Care Awning Finisher Name Role Phone NONE, NONE Primary Care Provider Gaurav Plata Unavailable [phone] ALLISON NEGRETE Unavailable Unavailable Allergies Allergen (clinical [...] Problem Screening for malignant neoplasm of colon (246517580) Encounter for screening for malignant neoplasm of colon (Z12.11) Active confirmed Problem Elevated liver enzymes level (704409865) Elevated liver function tests (R79.89) Active confirmed Problem Gallstones (225023712) Gallstones (K80.20) Active confirmed Problem Gastroesophageal reflux disease (482539656) GERD (gastroesophag eal reflux disease) (K21.9) Active confirmed Problem Elevated liver enzymes level (561472135) Elevated liver function tests (R94.5) Active confirmed Plan Of Treatment Pending Test Test Name Order Date LIVER PROFILE 12/04/2021 LIVER PROFILE 07/24/2021 CBC w DIFF 07/24/2021 PROTHROMBIN TIME (PT, INR) 07/24/2021 Next Appt Details Provider Name:Gaurav Smith Hector , 04/20/2025 10:40:00 AM, [address] [place] [address], [address], [place], [address], Insurance Providers Payer Name Payer Address Payer Phone Subscriber Number Group Number Insured Name Patient Relationship to Insured Coverage Start Date Coverage End Date MEDICARE OF [place] [address] [place] [address] [id number] VALENTINO ONEIL Self - patient is the insured [facility] [address] [address] [place] [address] [id number] VALENTINO ONEIL Self - patient is the insured Medical (General) History Medical History History ICD Code Denies [place],DM,CVA,renal disease Asthma GERD-told of a hiatal hernia [...]
== END 2024-12-26 10:45 | disposition home or self-care (01) ==
LOC: HO.LAB 10:44
PROVIDERS: Internal Medicine Cardiovascular Disease
DX: Z00.00 Encounter for general adult medical examination without abnormal findings (principal); E78.00 Pure hypercholesterolemia, unspecified; F41.8 Other specified anxiety disorders; F90.9 Attention-deficit hyperactivity disorder, unspecified type; R93.1 Abnormal findings on diagnostic imaging of heart and coronary circulation; R73.01 Impaired fasting glucose; M81.0 Age-related osteoporosis without current pathological fracture; K21.9 Gastro-esophageal reflux disease without esophagitis
CPT/HCPCS: 36415; 80053; 80061; 82306; 82607; 83036; 84443; 85025

== ENCOUNTER 2024-12-27 13:28 | Outpatient (REF) | payer MEDICARE, OTHER, SELFPAY ==
[2024-12-27 13:47] LABS: Appearance Urine Clear; Glucose Urine UA Negative (Negative); PH 5.5 (5.0-9.0); Specific Gravity - Urine 1.010 (1.005-1.025); UMIC TRIGGER UACC YES
--- OUTSIDE RECORDS SUMMARY | 2024-12-27 16:34 | XMS_ITS | Clinical Summary ---
Author Organization [facility] Address [address] [place] [address] Care Team Providers Care Cap Blocker Name Role Phone Unknown Primary Care Provider [...] complete this topic Insurance [address] [place] [id number] [facility] (AUTO/LIABILITY) [address] [place] [id number] Care Teams Cap Blocker Relationship Specialty Start Date End Date Unknown Unknow Provider Address PCP - General 03/18/19
--- OUTSIDE RECORDS SUMMARY | 2024-12-27 16:34 | XMS_ITS | Continuity of Care Document ---
Author Organization [facility] [address] [place] [address] Phone [phone] Care Team Providers Care Medical Anthropologist Name Role Phone Suellen Mendoza CNP Care Team Information Receive r [phone] Problems Active Problems Provider Date Gastroesophageal reflux [...]
--- OUTSIDE RECORDS SUMMARY | 2024-12-27 16:34 | XMS_ITS | Clinical Summary ---
Author Organization [facility] Address [address] [place] [address] Phone Care Team Providers Care Bus And Trolley Inspecting Dispatcher Name Role Phone Pcp, Unknown Primary Care [...] EPO MEDICARE PART A & B UNITED [employer] EPO MEDICARE PART A & B [employer] EPO Care Teams Bus And Trolley Inspecting Dispatcher Relationship Specialty Start Date End Date Pcp, Unknown PCP - General 05/03/24 Additional Source Comments The information contained in this document represents components of the legal health record. It is not the complete legal health record.[facility]
--- OUTSIDE RECORDS SUMMARY | 2024-12-27 16:34 | XMS_ITS | Patient Health Record ---
Author Organization [facility] Address [address] [place] [address] Care Team Providers Care Personal Care Service Provider Name Role Phone NONE, NONE Primary Care Provider Gaurav Plata Unavailable [phone] ALLISON NEGRETE Unavailable Unavailable Allergies Allergen (clinical [...] Problem Screening for malignant neoplasm of colon (509408598) Encounter for screening for malignant neoplasm of colon (Z12.11) Active confirmed Problem Elevated liver enzymes level (403302040) Elevated liver function tests (R79.89) Active confirmed Problem Gallstones (864891383) Gallstones (K80.20) Active confirmed Problem Gastroesophageal reflux disease (451677759) GERD (gastroesophag eal reflux disease) (K21.9) Active confirmed Problem Elevated liver enzymes level (414977891) Elevated liver function tests (R94.5) Active confirmed Plan Of Treatment Pending Test Test Name Order Date LIVER PROFILE 12/04/2021 LIVER PROFILE 07/24/2021 CBC w DIFF 07/24/2021 PROTHROMBIN TIME (PT, INR) 07/24/2021 Next Appt Details Provider Name:Gaurav Smith Hector , 04/20/2025 10:40:00 AM, [address] [place] [address], [address], [place], [address], Insurance Providers Payer Name Payer Address Payer Phone Subscriber Number Group Number Insured Name Patient Relationship to Insured Coverage Start Date Coverage End Date MEDICARE OF [place] [address] [place] [address] [id number] VALENTINO ONEIL Self - patient is the insured [employer] [address] [address] [place] [id number] VALENTINO ONEIL Self - patient is the [...]
== END 2024-12-27 13:29 | disposition home or self-care (01) ==
LOC: HO.LNP 13:28
DX: J45.40 Moderate persistent asthma, uncomplicated (principal); R06.00 Dyspnea, unspecified; R91.1 Solitary pulmonary nodule
CPT/HCPCS: 81001; 99212

== ENCOUNTER 2024-12-27 14:48 | Outpatient (AMB) | payer MEDICARE, OTHER, SELFPAY ==
[2024-12-27 14:51] VITALS: BP 104/50; PULSE 106; O2SAT 98; BMI 25.0
--- NOTE | 2024-12-27 14:51 | A.OFFVIS_ITS ---
Vital Signs 12/27/24 14:51 Height 5 ft 8 in Weight 164 lb 4 oz BMI 25.0 BP 104/50 L Blood Pressure Location Rt brachial Position Sitting Pulse 106 H Pulse Source Pulse Oximeter Pulse Oximetry (%) 98 Oxygen Delivery Method Room Air Intake Visit Reasons: solitary pulmonary nodule, CT & PFT f/u Allergies Penicillins Allergy (Intermediate, Verified 12/27/24 14:55) Angioedema codeine Adverse Reaction (Verified 12/27/24 14:55) Nausea, Abdominal pain HPI HPI solitary pulmonary nodule, CT & PFT f/u: Details: Christina is pleasant 69 year old female, never smoker, with underlying asthma, GERD and hiatal hernia. She was initially referred by PCP for evaluation of a pulmonary nodule. The nodule was identified during a calcium scan through cardiology, measuring approximately 4 mm in size, located in the right middle lobe. She denies prior abnormal imaging. At this time, she reports excellent control of respiratory symptoms on current regimen of Wixela, Anaya and Montelukast, with occasional use of albuterol. She does note that she has been without Singulair for a few weeks and has noticed an increase in respiratory symptoms due to environmental triggers. She denies any visits to urgent care or hospitalizations related to respiratory distress since the last visit. Today she presents to review chest CT and PFT results. [facility] Medical History Tinnitus High cholesterol Skin cancer Depression Asthma GERD (gastroesophageal reflux disease) Hiatal hernia Surgical History History of breast biopsy Hx of colonoscopy Family History Other Mental health disorder Social History Housing: House Are you a primary respiratory care assistant to a significant other at home: No Do you presently have visiting nurse or other home services: No Alcohol intake: current Alcohol intake frequency: a few times a week Alcohol type: wine Patient Tobacco Use Status: Never used Tobacco e-Cigarette/Vaping Use: Never Used Second Hand Smoke Exposure: No service: No Current occupational status: employed 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 Current occupational exposures/hazards: No Cognitive needs: No Hearing needs: No Vision needs: No Review of Systems Const Denies chills, Denies excessive sweating, Denies fever(s), Denies headache(s) and Denies night sweats Eyes Denies dry eyes, Denies irritation and Denies itchy eyes ENT Reports Normal hearing present, Denies headache(s), Denies nasal congestion, Denies nasal discharge, Denies post nasal drip and Denies sore throat Card Denies chest pain, Denies chest pain at rest, Denies chest pain with activity, Denies claudication, Denies leg edema, Denies dyspnea, Denies dyspnea on exertion, Denies orthopnea and Denies paroxysmal nocturnal dyspnea Resp Denies chest congestion, Denies cough, Denies excessive phlegm production, Denies pain on inspiration, Denies pain with cough, Denies dyspnea, Denies dyspnea on exertion, Denies stridor and Denies wheezing Musc Denies myalgias Neuro Reports Normal hearing present and Denies headache(s) Endo Denies excessive sweating Ang/Lymph Denies lymphadenopathy Aller/Immun Denies itchy eyes, Denies seasonal rhinorrhea and Denies wheezing Physical Exam Vital Signs: Last Vital Signs Pulse 106 H 12/27/24 14:51 BP 104/50 L 12/27/24 14:51 Pulse Ox 98 12/27/24 14:51 Oxygen Delivery Method Room Air 12/27/24 14:51 BMI result Body Mass Index 25.0 Const General: cooperative, healthy appearing, comfortable, no acute distress, well developed and alert Orientation/consciousness: patient oriented x3 Limitations: no limitations HEENT Head: Yes normal to inspection, Yes normocephalic and Yes atraumatic Ears: hearing grossly normal bilaterally and external ears normal Eyes General: appearance normal, both eyes and all related structures Eyelids: Yes eyelids normal Sclerae: sclerae normal EOM: EOMs intact bilaterally Neck Neck: Yes normal visual inspection and Yes no lymphadenopathy Lymphatic: no lymphadenopathy noted Chest Chest palpation & inspection: normal inspection of the chest Resp Effort & Inspection: normal respiratory effort, able to speak in complete sentences, no audible wheezes, no cough, no stridor, not tachypneic, no tripod positioning and no use of accessory muscles Auscultation: clear to auscultation bilaterally Cardio Jugular venous distension: no JVD Rate: regular rate Rhythm: regular rhythm Skin Other: warm, dry General skin exam: no rashes or lesions noted Neuro General: patient oriented x3 Cranial nerves: Yes Normal hearing present Cognition (Neuro): normal cognition Gait exam (Neuro): Normal gait present Extrem General: Yes normal to inspection, Yes capillary refill normal, Yes no clubbing, cyanosis or edema and Yes no pedal edema Psych Appearance: grossly normal and well kempt Speech and movement: Normal speech and movement present and Clear speech present Affect: normal affect Attitude: cooperative Thought process: Normal thought process present Thought content: Normal thought content present Insight: Good insight present (Psych) Judgement: Good judgement present (Psych) Results Reviewed Results Reviewed: [address] [address] [address] Scan Report Signed Patient: Christina Rouse MR#: [id number] : 1955 Acct:[id number] Age/Sex: 69 / F ADM Date: 10/08/24 Loc: HO.CT Attending Dr: Dianna Soto NP Ordering Physician: Dianna Soto NP Date of Service: 10/08/24 Procedure(s): CT chest wo IV con Accession Number(s): [id number] cc: Dianna Soto MATERIALS DIRECTOR; Reji Ken [facility]~ Report Number: [id number]: Total DLP = 119.00 mGy-cm CLINICAL HISTORY: R91.1 - Solitary pulmonary nodule CT chest without contrast Comparison: None provided Findings: The heart is normal in size. There is no pericardial effusion. Couple subcentimeter hypodense left thyroid nodules are present. There is no mediastinal, hilar, or axillary lymphadenopathy. 4 mm right middle lobe nodule (axial image 33 of series 3) is present. Mild biapical lung scarring is noted. Limited examination of the upper abdomen demonstrates cholecystectomy clips. Thoracic dextroscoliosis is present with associated mild degenerative changes. No acute osseous abnormality is identified. IMPRESSION: 1. 4 mm right middle lobe lung nodule. According to Fleischner society guidelines, if patient is at high risk for neoplasm, follow-up CT chest in 12 months is optional. This document has been electronically signed by: Lucie Galvan on 10/10/2024 08:59:31 Dictated By: Lucie Galvan MD Signed By: <Electronically signed by Lucie Galvan MD in OV> 10/10/24 0900 DD/ 8 TD/TT: 10/10/24858 Ladies Suit Operator Assessment & Plan Assessment & Plan (1) Asthma: Code(s): J45.909 - Unspecified asthma, uncomplicated Category: Medical Qualifiers: Asthma complication type: unspecified Asthma persistence: persistent Asthma severity: moderate Qualified Code(s): J45.40 - Moderate persistent asthma, uncomplicated (2) Dyspnea: Code(s): R06.00 - Dyspnea, unspecified Category: Medical (3) Pulmonary nodule: Code(s): R91.1 - Solitary pulmonary nodule Category: Medical Plan Reviewed PFT which revealed mild restrictive ventilatory defect with no bronchodilator response. Decreased expiratory reserve volume suggests extrathoracic restriction likely secondary to abdominal obesity. Combination of restrictive ventilatory defect with decreased diffusion capacity suggests underlying pulmonary parenchymal disease, however no significant abnormalities on CT. Reviewed chest CT which demonstrates stability of 4 mm RML pulmonary nodule, will repeat in one year to assess stability. Order previously placed. There was an incidental finding of thyroid nodules, will send message to PCP for further evaluation. At this time patient with good control of respiratory symptoms on current regimen, advised to continue Wixela and Albuterol MDI PRN, will refill Singulair. She is aware to call if symptoms change. All questions were answered and patient is in agreement of plan. Will follow up in 9-12 months or sooner if needed. Medications: Refilled montelukast 10 mg PO DAILY 90 tabs 1RF J45.909 - Unspecified asthma, uncomplicated Coding Level of Care Code Est Pt Level 4 (68532) Diagnoses Moderate persistent asthma, unspecified whether complicated J45.40 Asthma complication type: unspecified Asthma persistence: persistent Asthma severity: moderate Dyspnea R06.00 Pulmonary nodule R91.1
== END 2024-12-27 15:15 | disposition home or self-care (01) ==
PROVIDERS: Visit Provider Nurse Practitioner Family
DX: J45.40 Moderate persistent asthma, uncomplicated (principal); R06.00 Dyspnea, unspecified; R91.1 Solitary pulmonary nodule
CPT/HCPCS: 99214

== ENCOUNTER 2025-01-25 15:12 | Outpatient (REF) | payer MEDICARE, OTHER, SELFPAY ==
--- NOTE | ~2025-01-25 | US_ITS ---
EXAMINATION: US THYROID CLINICAL INFORMATION: -E04.1 - Nontoxic single thyroid nodule -Chest CT on October 08, 2024 describes couple subcentimeter hypodense left thyroid nodules are present COMPARISON: Chest CT on October 08, 2024 TECHNIQUE: Linear transducer grayscale and color Doppler examination with attention to the region of the thyroid. FINDINGS: SIZE: Measurements of the thyroid lobes and nodules are given in sagittal, anteroposterior and transverse dimensions respectively. Right Thyroid Lobe: 4.5 x 1.4 x 1.4 cm, volume 4.6 mL. Parenchyma: The gland echotexture is heterogeneous. Thyroid vascularity is normal. Left Thyroid Lobe: 5.1 x 1.6 x 1.4 cm, volume 5.9 mL. Parenchyma: The gland echotexture is heterogeneous. Thyroid vascularity is normal. Isthmus: 0.2 cm in maximum AP dimension. Estimated total number of nodules greater than or equal to 1 cm: 3. Senior Technologist nodules are described as follows: 1. Location: Right midpole. Size: 0.7 x 0.4 x 0.7 cm, volume 0.1 ml. Nodule characteristics: Composition: Spongiform (0). ACR TI-RADS total points: 0 ACR TI-RADS category: 1 2. Location: Left lower pole. Size: 1.2 x 0.8 x 1.0 cm, volume 0.5 ml. Nodule characteristics: Composition: Mixed cystic and solid (1). Echogenicity: Hypoechoic (2). Shape: Not taller than wide (0). Margins: Ill-defined (0). Echogenic Foci: None (0). ACR TI-RADS total points: 3 ACR TI-RADS category: 3 3. Location: Left lower pole. Size: 1.2 x 0.6 x 1.1 cm, volume 0.4 ml. Nodule characteristics: Composition: Mixed cystic and solid (1). Echogenicity: Hypoechoic (2). Shape: Not taller than wide (0). Margins: Ill-defined (0). Echogenic Foci: None (0). ACR TI-RADS total points: 3 ACR TI-RADS category: 3 4. Location: Left midpole. Size: 1.3 x 0.9 x 1.2 cm, volume 0.7 ml. Nodule characteristics: Composition: Mixed cystic and solid (1). Echogenicity: Hypoechoic (2). Shape: Not taller than wide (0). Margins: Ill-defined (0). Echogenic Foci: None (0). ACR TI-RADS total points: 3 ACR TI-RADS category: 3 NODES: No lymphadenopathy is seen in the tissue surrounding the thyroid gland. US/US thyroid IMPRESSION: Bilateral thyroid nodules as described above. No dedicated imaging follow-up or fine needle aspiration recommended according to the TI-RADS. ACR TI-RADS RECOMMENDATION REFERENCE: Ultrasound-guided fine-needle aspiration, followup ultrasound, no further follow up. * TR1 (0 point) and TR2 (2 points): No FNA or follow up. * TR3 (3 points): FNA if more than or equal to 2.5 cm in maximum dimension, followup ultrasound in 1, 3 and 5 years if 1.5 to 2.4 cm in maximum dimension. * TR4 (4-6 points): FNA if more than or equal to 1.5 cm in maximum dimension, followup ultrasound in 1, 2, 3 and 5 years if 1 to 1.4 cm in maximum dimension. * TR5 (more than or equal to 7 points): FNA if more than or equal to 1 cm in maximum dimension, followup ultrasound every year for 5 years if 0.5 to 0.9 cm in maximum dimension. * TR3, TR4 or TR5 nodules that are below the size threshold for followup receive no follow up. Electronically signed by: Chencho Dash MD 01/26/2025 07:19 AM [facility]
--- OUTSIDE RECORDS SUMMARY | 2025-01-25 18:15 | XMS_ITS | Continuity of Care Document ---
Author Organization [facility] [address] [place] [address] Phone [phone] Care Team Providers Care Civil Laboratory Technician Name Role Phone Suellen Mendoza CNP Care Team Information Receive r [phone] Problems Active Problems Provider Date Gastroesophageal reflux [...]
--- OUTSIDE RECORDS SUMMARY | 2025-01-25 18:15 | XMS_ITS | Clinical Summary ---
Author Organization [facility] Address [address] [place] [address] Phone Care Team Providers Care Pension Administrator Name Role Phone Pcp, Unknown Primary Care [...] EPO MEDICARE PART A & B [employer] EPO MEDICARE PART A & B [employer] EPO Care Teams Pension Administrator Relationship Specialty Start Date End Date Pcp, Unknown PCP - General 05/03/24 Additional Source Comments The information contained in this document represents components of the legal health record. It is not the complete legal health record.[facility]
--- OUTSIDE RECORDS SUMMARY | 2025-01-25 18:15 | XMS_ITS | Patient Health Record ---
Author Organization [facility] Address [address] [place] [address] Care Team Providers Care Cmv Driver Name Role Phone NONE, NONE Primary Care Provider Gaurav Plata Unavailable [phone] ALLISON NEGRETE Unavailable Unavailable Allergies Allergen (clinical drug ingredient) Drug/Non Drug Allergy documented on EMR Reaction Allergy Type Onset Date Status codeine Codeine gi upset Drug Allergy Active Penicillin swellling Drug Allergy Active Reason For Referral No Information Medications Medication SIG (Take, Route, Frequency, Duration) Notes Start Date End Date Status Multivitamin Active ProAir HFA 108 (90 Base) MCG/ACT Aerosol Solution 1 puff as needed Inhalation every 4 hrs Active buPROPion HCl ER (XL) 150 MG Tablet Extended Release 24 Hour Oral; Duration: 30 Active Advair Diskus 250-50 MCG/ACT Aerosol Powder Breath Activated INHALE 1 PUFF BY MOUTH EVERY 12 HOURS Inhalation; Duration: 30 Active Singulair 10 MG Tablet 1 tablet Orally O nce a day; Duration: 30 day(s) Active FLUoxetine HCl 20 MG Capsule TAKE 1 CAPSULE BY MOUTH EVERY DAY Oral; Duration: 30 Active Vitamin D Active Immunizations Vaccine Route Administration Date Status Comme nts Influenza Unknown 11/27/2021 Administered Social History Tobacco Use: Social History Observation Description Date Details (start date - stop date) Never Smoker NA - NA Social History Drugs/Alcohol: Social Info Question Answer Notes Alcohol Screen Did you have a drink containing alcohol in the past year? Yes How often did you have a drink containing alcohol in the past year? 4 or more times a week (4 points) How many drinks did you have on a typical day when you were drinking in the past year? 1 or 2 drinks (0 point) How often did you have 6 or more drinks on one occasion in the past year? 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 Section Notes: Nonsmoker, occasional glass of wine Nonsmoker, occasional glass of wine Problems Problem Type SNOMED Code ICD Code Onset Dates Problem Status W/U Status Risk Notes Problem Screening for malignant neoplasm of colon (545676218) Encounter for screening for malignant neoplasm of colon (Z12.11) Active confirmed Problem Elevated liver enzymes level (869303533) Elevated liver function tests (R79.89) Active confirmed Problem Gallstones (217596278) Gallstones (K80.20) Active confirmed Problem Gastroesophageal reflux disease (775804977) GERD (gastroesophag eal reflux disease) (K21.9) Active confirmed Problem Elevated liver enzymes level (456697120) Elevated liver function tests (R94.5) Active confirmed Plan Of Treatment Pending Test Test Name Order Date LIVER PROFILE 12/04/2021 LIVER PROFILE 07/24/2021 CBC w DIFF 07/24/2021 PROTHROMBIN TIME (PT, INR) 07/24/2021 Next Appt Details Provider Name:Gaurav Smith Hector , 04/20/2025 10:40:00 AM, [address] [place] [address], [facility] [address], [place], [address], Insurance Providers Payer Name Payer Address Payer Phone Subscriber Number Group Number Insured Name Patient Relationship to Insured Coverage Start Date Coverage End Date MEDICARE OF [place] [address] [id number] VALENTINO ONEIL Self - patient is the insured [facility] [address] [address] [place] [address] [id number] VALENTINO ONEIL Self - patient is the insured Medical (General) History Medical History History ICD Code Denies [place],DM,CVA,renal disease Asthma GERD-told of a hiatal hernia [...]
--- OUTSIDE RECORDS SUMMARY | 2025-01-25 18:15 | XMS_ITS | Clinical Summary ---
Author Organization [facility] Address [address] [place] [address] Care Team Providers Care Services Clerk Name Role Phone Unknown Primary Care Provider [...] age to complete this topic Insurance apt [address] [place] [phone] Care Teams Services Clerk Relationship Specialty Start Date End Date Unknown Unknow Provider Address PCP - General 03/18/19
== END 2025-01-25 15:13 | disposition home or self-care (01) ==
LOC: HO.US 15:12
DX: E04.1 Nontoxic single thyroid nodule (principal)
CPT/HCPCS: 76536

== ENCOUNTER → 2025-01-25 15:15 | Outpatient (BNV) | payer MEDICARE, OTHER, SELFPAY | PROVIDERS: Visit Provider Radiology Body Imaging | DX: E04.2 Nontoxic multinodular goiter (principal) | CPT/HCPCS: 76536 ==